=== PATIENT | female | born 1935 | race Caucasian/White ===

== ENCOUNTER 2019-04-13 12:24 | Inpatient (IN) | payer MEDICARE, SELFPAY ==
[2019-04-13] VITALS (9 sets, daily range): BP systolic 106–149; BP diastolic 59–69; PULSE 65–74; RESP 15–22; TEMP 36.6–37.9; O2SAT 90–98; BMI 20.2
--- NOTE | ~2019-04-13 | MR_ITS ---
EXAMINATION: MR brain/brain stem wo/w con DATE: 04/14/2019 10:37 INDICATION: Weakness TECHNIQUE: Magnetic resonance imaging (MRI) of the brain and brainstem was performed without and with 10 mL Multihance intravenous contrast. Sequences included sagittal and axial T1-weighted SE, axial d iffusion-weighted FS SE, axial T2*-weighted GRE, axial T2-weighted FLAIR, and axial T2-weighted FSE. Postcontrast axial, sagittal and coronal T1-weighted SE was obtained. Apparent diffusion coefficient (ADC) maps were created. COMPARISON: Head CT dated 04/13/2019 and brain MR dated 04/27/2015 FINDINGS: There are no areas of restricted diffusion to suggest acute infarction. No intracranial hemorrhage or abnormal intracranial mass lesion. No significant interval change in a small amount of scattered are as of nonspecific increased T2-weighted signal intensity in the cerebral white matter, predominantly involving the deep and periventricular white matter which is within normal limits for age. There are no intraparenchymal signal abnormalities seen on the other pulse sequences. The ventricles are symmet des and normal in size. There are no abnormal extra-axial fluid collections. Flow voids are seen in t he cerebral arteries on the T2-weighted sequences consistent with their expected patency. Mild mucosa l thickening the bilateral ethmoid and maxillary sinuses. Visualized orbits and soft tissues are unre markable. There are no areas of abnormal enhancement on the post contrast images. IMPRESSION: 1. Normal aging brain. No acute intracranial process. Reviewed, dictated and finalized at location A. RT SALES ASSISTANT
--- NOTE | ~2019-04-13 | XR_ITS ---
EXAMINATION: XR chest 2V EXAM DATE: 04/15/2019 12:17 INDICATION: Wheezing. TECHNIQUE: Frontal and lateral projections of the chest obtained and reviewed. Comparison is made to prior examination from 10/09/2018. FINDINGS: The there is moderate-sized right-sided pleural effusion with adjacent multisegmental righ t basilar atelectasis. Superimposed pneumonia or cancer not excludable. Left lung is clear. There is severe thoracolumbar scoliosis. No pneumothorax. The cardiac silhouette is enlarged. The bones are os teopenic. There are bony degenerative changes. IMPRESSION: 1. Moderate right pleural effusion, adjacent lobar atelectasis. 2. Underlying pneumonia or cancer not excludable. Reviewed, dictated and finalized at location A. ER/WAITRESS DINING CAR
--- NOTE | ~2019-04-13 | CT_ITS ---
EXAMINATION: CT brain wo con DATE: 04/13/2019 13:34 INDICATION: Fall with altered mental status. TECHNIQUE: Computed tomography (CT) of the head was performed without intravenous contrast. Sagittal and coronal reconstructions were performed. The mA was adjusted according to patient size. Iterative reconstruction technique was employed. The dose-length product was 605.33 mGy-cm. COMPARISON: head CT dated 08/23/2004 and brain MR dated 04/27/2015 FINDINGS: No fracture. No acute intracranial hemorrhage, acute infarction or abnormal extra axial fluid collect ion. There is mild scattered white matter hypoattenuation consistent with chronic small vessel ischem ic disease. Mild increased prominence of the subarachnoid spaces overlying the convexities consistent with mild age-appropriate diffuse volume loss. Ventricles are normal and symmetric. No mass/mass eff ect. Intracranial calcified cerebral atherosclerosis is noted. The orbits, paranasal sinuses and mast oid air cells are normal. IMPRESSION: 1. Normal aging brain. No fracture or acute intracranial process Reviewed, dictated and finalized at location A. H MACHINE OPERATOR
--- NOTE | ~2019-04-13 | US_ITS ---
EXAMINATION: US carotid duplex BI DATE: 04/14/2019 11:19 INDICATION: Weakness. Carotid atherosclerosis and stenosis. TECHNIQUE: Grayscale, color Doppler, and pulsed Doppler images of the cervical carotid arteries were obtained. The degree of vessel stenosis is placed in one of the following categories: normal, <50%, 5 0-69%, >=70% but less than near-occlusion, near-occlusion, or total occlusion. Note that percent sten osis relative to normal distal artery lumen diameter is indirectly measured from velocity measurement s as described by Hood, et al. Radiology 2003; 229:340-346. COMPARISON: 05/02/2015 FINDINGS: Intermittent cardiac arrhythmia is present which occurs medially following imaging of the carotid bul bs on both the left and right. RIGHT: The right common carotid artery (CCA) peak systolic velocity (PSV) is 52 cm/s. The right internal car otid artery (ICA) PSV is 110 cm/s. The right ICA end-diastolic velocity (EDV) is 31 cm/s. The right I CA/CCA PSV ratio is 2.1. Grayscale and color Doppler images yield an estimate of <50% diameter reduct ion from plaque in the ICA. The external carotid artery (ECA) PSV is 120 cm/s. There is antegrade andressa w in the right vertebral artery. LEFT: The left CCA PSV is 87 cm/s. The left ICA PSV is 154 cm/s. The left ICA EDV is 31 cm/s. The left ICA/ CCA PSV ratio is 1.8. Grayscale and color Doppler images yield an estimate of 50-69% diameter reducti on from plaque in the ICA. The ECA PSV is 189 cm/s. There is antegrade flow in the left vertebral art romeo. IMPRESSION: 1. <50% stenosis in the right internal carotid artery. 2. 50-69% stenosis in the left internal carotid artery. 2. Transient likely vasovagal-induced cardiac arrhythmia. Correlate with EKG. Reviewed, dictated and finalized at location A. ROOFING INSTALLER
--- NOTE | ~2019-04-13 | XR_ITS ---
XR chest 2V 04/18/2019 16:50 Indication: Right pleural effusion. Procedure: 2 view chest Comparison: Comparison to multiple prior studies sequentially, with oldest reviewed study dated 10/09. Findings: Moderate right pleural effusion. Cardiomegaly. There is superimposed airspace disease in th e right lung and left lung base. No pneumothorax. Generalized osteopenia. Scoliosis. Advanced degener ative changes of the shoulders, left greater than right. Impression: 1: Bilateral airspace disease may represent atelectasis and/or pneumonia. 2: Moderate right pleural effusion. 3: Cardiomegaly. Reviewed, dictated and finalized at location A. LESOFT DEVELOPER Impression: 1: Bilateral airspace disease may represent atelectasis and/or pneumonia. 2: Moderate right pleural effusion. 3: Cardiomegaly.
--- NOTE | 2019-04-13 12:49 | ED.WEAKNESS ---
HPI - Weakness General Chief complaint: Weakness Stated complaint: weakness Time Seen by Provider: 04/13/19 12:45 Source: patient and RN notes reviewed Mode of arrival: EMS Limitations: no limitations History of Present Illness HPI Narrative: The pt is an 83 y/o female who presents to the ED, via EMS, with c/o generalized weakness since this morning. The pt states that she was using her walker to get into the shower this morning when her legs gave out. She also notes that she was getting ready to lay down last night and fell backwards. She states that she does not feel sick and does not have pain. Per nurse's note, staff at [facility] found her slumped over to the lt this morning, unable to stand up when asked. Her last known normal was at 21:30 last night. The pt denies poor appetite, nausea, or vomiting. Also per nurse's note, the pt has a PMHx of a TIA 3 years ago. Complaint: generalized weakness Onset (ago): hour(s) (this morning) Location: generalized Associated symptoms: denies other symptoms Related Data Home Medications Medication Instructions Recorded Confirmed amlodipine 10 mg PO HS 04/13/19 04/13/19 aspirin 81 mg PO DAILY 04/13/19 04/13/19 calcium polycarbophil [FiberCon] 625 mg PO BID 04/13/19 04/13/19 cyanocobalamin (vitamin B-12) 1,000 mcg PO DAILY 04/13/19 04/13/19 [Vitamin B-12] lorazepam 0.5 mg PO HS 04/13/19 04/13/19 [id number] carb-vit K 1 tablet PO DAILY 04/13/19 04/13/19 [One-A-Day Womens Formula] sertraline 100 mg PO BID 04/13/19 04/13/19 tramadol 50 mg PO BID 04/13/19 04/13/19 Allergies Allergy/AdvReac Type Severity Reaction Status Date / Time Penicillins Allergy Unknown Verified 08/03/10 09:33 Review of Systems Constitutional: Constitutional: Denies poor appetite and Reports weakness (generalized) Gastrointestinal: Gastrointestinal: Denies nausea and Denies vomiting PMFSH Past Medical History Medical History (Updated 04/13/19 @ 19:26 by Hood Samano MD) Anxiety Arthritis Back pain Bakers cyst Colon polyps CVA (cerebral vascular accident) Depression Dysphagia Fractures ankle, foot Hemorrhoids internal History of rectal polyps Hypercalcemia Hypertension Kidney tumor rt Leukemia Melena Osteoporosis Ovarian cancer rt Ovarian cyst Peripheral neuropathy Sleep apnea TIA (transient ischemic attack) Surgical History Surgical History (Updated 04/13/19 @ 13:42 by Tiffanie Enriquez) H/O arthroscopic knee surgery lt H/O local excision of skin lesion lt hand H/O oophorectomy bilateral History of nephrectomy rt History of total bilateral knee replacement (TKR) Hx of colonoscopy Social History Social History Years smoked: 60 Smoking status: Former smoker Tobacco type: cigarettes Second hand tobacco smoke exposure: No Smoking end date: 09/26/18 Alcohol intake: never Substance use: never Gender identity (if verbalized by the patient): Female Spiritual care concerns: No Agree to blood products: Yes Exam Const: General: no acute distress Other: frail, elderly HENMT: Mouth: Yes lip normal and Yes dry mucous membranes Eyes: Conjunctivae: conjunctivae normal Pupils: Equal, round and reactive pupils present Resp: Effort & Inspection: normal respiratory effort Auscultation: clear to auscultation bilaterally Cardio: Rhythm: regular rhythm Other: irregular rate, 3 point ectopy GI: GI Palp: Yes Soft to palpation and No Tenderness to palpation present (GI) Auscultation: normal bowel sounds Back/Spine/Pelvis: Back: other (full ROM) Skin: General skin exam: normal color, dry skin and other (warm) Other: healing bruise to rt upper back Neuro: General: patient oriented x3 Speech: normal speech Other: strength grossly nml, mild lt side neglect Extrem: General: full ROM Psych: Mental Status: mental status grossly normal Affect: normal affect Course Consult
--- NOTE | 2019-04-13 12:52 | ECG_ITS ---
Measurements Intervals [place] Rate: 63 P: 140 MN: 140 QRS: -11 QRSD: 96 T: 60 QT: 345 QTc: 355 Interpretive Statements SINUS RHYTHM ATRIAL PREMATURE COMPLEX LEFT VENTRICULAR HYPERTROPHY AND ST-T CHANGE BORDERLINE T WAVE ABNORMALITY- ANT/INF LEADS BORDERLINE ECG Electronically Signed On 04-13-2019 13:57:15 VALVE FITTER by Ricardo Childers D.O.
[2019-04-13 13:37] LABS: Alanine Aminotransferase 19 U/L (4-35); Albumin Level 3.8 g/dL (3.5-5.1); Alkaline Phosphatase 75 U/L (38-126); Aspartate Amino Transferase 27 U/L (14-36); Bilirubin,Total 0.5 mg/dL (0.2-1.3); Blood Urea Nitrogen 35 mg/dL (7-17); Calcium 10.2 mg/dL (8.4-10.2); Carbon Dioxide 28 mmol/L (22-30); Chloride 97 mmol/L (98-107); Estimated CRCL calculation 40 ml/min; Estimated Glomerular Filt Rate > 60; Glucose 116 mg/dL (65-105); Potassium 3.2 mmol/L (3.4-5.0); Sodium 137 mmol/L (137-145)
[2019-04-13] MEDS: SODIUM CHLORIDE 0.9% IV 500 ML 999 ML IV CONT (13:40)
[2019-04-13 14:27] LABS: Add Urine Microscopic? NO; Appearance Urine Clear (Clear); Bilirubin Urine Negative (Negative); Blood Urine Negative (Negative); Color Urine Yellow (Yellow); Glucose Urine UA Negative (Negative); Ketones Urine Negative (Negative); Leukocyte Esterase Ur Negative LEU/UL (Negative); Nitrate Urine Negative (Negative); Protein Urine Negative (Negative); Specific Grav Ur 1.023 (1.001-1.035); Urobilinogen Urine Negative mg/dL (<2.0)
--- NOTE | 2019-04-13 14:44 | PC.NURSE ---
Pt CBC drawn twice by motor racer Jl and motor racer Fredy, unreceived both times. Phlebotomy called but nobody answered. SIMONA Barnard and Mil Rivera RN, notified.
[2019-04-13 15:05] LABS: Basophils Percent Auto 0.1 % (0.2-1.2); Hematocrit 24.4 % (37.0-47.0); Hemoglobin 8.1 g/dL (12.0-15.0); Immature Granulocyte Absolute 0.04 K/mm3 (0.00-0.031); Immature Granulocyte Percent A 0.5 % (0-0.5); Lymphocytes Absolute Auto 0.75 K/mm3 (0.9-3.2); Lymphocytes Percent Auto 10.1 % (18.3-44.2); Mean Corpuscular HGB Conc 33.2 g/dl (32-36); Mean Corpuscular Hemoglobin 28.6 pg (26-34); Mean Corpuscular Volume 86.2 fl (80-100); Monocytes Absolute Auto 0.3 K/mm3 (0.1-0.6); Monocytes Percent Auto 3.9 % (2.6-8.5); Neutrophils Absolute Auto 6.3 K/mm3 (1.3-6.7); Neutrophils Percent Auto 85.4 % (45.5-73.1); Platelet Count Result 149 k/mm3 (150-375); Red Blood Count 2.83 M/mm3 (4.2-5.4); Red Cell Distribution Width 15.1 % (11.5-14.5); White Blood Count 7.4 K/mm3 (4.5-10.0)
--- NOTE | 2019-04-13 16:08 | PC.NURSE ---
Walked pt about 10 Ft. Pt was not very steady; about every 4-6 steps Pt became weak and would become unsteady. Notified RN of how Pt walked.
--- NOTE | 2019-04-13 16:53 | PC.NURSE ---
Advised EDP of SpO2 88-90%. No new orders at this time.
--- NOTE | 2019-04-13 17:14 | PC.NURSE ---
Patient placed on O2 2L NC for SpO2 of 88%. Sp02 increased to 96%.
[2019-04-13] MEDS: LACTATED RINGERS 1,000 ML 100 ML IV CONT (18:35)
--- NOTE | 2019-04-13 18:57 | ADMGEN ---
This patient, Shonda Wiggins, was admitted to Medical Room 248-01. Patient/family oriented to hospital policies and general routines including ID bracelet, bed and alarms, visiting hours, pain management, procedures, bathroom and other care routines, personal items, smoking policy, room service/diet, and visiting hours. Valuables list has been completed. Information on how to activate the Rapid Response Team has been discussed. Patient/Family are encouraged to report perceived risks to care and to ask questions if they do not understand what they are told or what they should do.
[2019-04-13] MEDS: AMLODIPINE BESYLATE 5 MG TABLET 10 MG PO (23:56)
[2019-04-13] MEDS: lisinopriL 20 MG TABLET PO (23:57)
[2019-04-13] MEDS: TRAMADOL HCL 50 MG TABLET PO (23:58)
[2019-04-13] MEDS: SERTRALINE HCL 50 MG TABLET 100 MG PO (23:59)
[2019-04-14] VITALS (10 sets, daily range): BP systolic 140–160; BP diastolic 60–86; PULSE 66–92; RESP 16–18; TEMP 36.1–36.9; O2SAT 93–96
--- NOTE | 2019-04-14 | ECHO_ITS ---
Patient Info Name: Shonda Wiggins Age: 83 years : 1935 Gender: Female Ht: 63 in Wt: 118 lbs BSA: 1.54 m2 HR: 75 bpm BP: 140 / 60 mmHg Heart Rhythm: Sinus Rhythm Technical Quality: Good Exam Date: 04/14/2019 11:27 AM Exam Location: [facility] Patient Status: Inpatient Admit Date: 04/13/2019 Staff Ordering Physician: Mindy Serra NP Time Motion Analyst: Xavier Gallegos RDCS Attending Provider: Slim Alonso MD Referring Physician: Ponce HOLLEY; Exam Type: CA echo doppler w bubble study Study Info Indications 435.9 - TIA Complete two-dimensional, color flow and Doppler transthoracic echocardiogram is performed with agitated saline. Contrast/Agitated Saline Contrast/Ag. Saline: Agitated Saline Amount: 18.00 ml Administered By: Beatriz Burciaga RN History/Risk Factors TIA and Hypertension. Summary 1. Left ventricular chamber dimension is mildly enlarged. 2. Left ventricular systolic function is normal, estimated at 55-60%. 3. There is mildly increased left ventricular wall thickness. 4. The left ventricular diastolic function is grade I diastolic dysfunction. 5. E/e' 10 is mildly elevated. 6. Global longitudinal strain is abnormal at -15.0%. 7. Left atrial chamber dimension is severely enlarged. 8. Right atrial chamber dimension is mildly enlarged. 9. There is mild aortic valve sclerosis. 10. There is moderate aortic valve regurgitation. 11. The mitral valve has mild calcified annulus. 12. There is mild mitral valve regurgitation. 13. There is trace tricuspid valve regurgitation. 14. Mild pulmonary hypertension, estimated pulmonary arterial systolic pressure is 47 mmHg. 15. There is mild pulmonic regurgitation. 16. There is trivial pericardial effusion. Left Ventricle E/e' 10 is mildly elevated. Global longitudinal strain is abnormal at -15.0%. Left ventricular chamber dimension is mildly enlarged. Left ventricular systolic function is normal, estimated at 55-60%. There is mildly increased left ventricular wall thickness. The left ventricular diastolic function is grade I diastolic dysfunction. Right Ventricle Right ventricular chamber dimension is normal. Right ventricular systolic function is normal. Left Atria Left atrial chamber dimension is severely enlarged. Right Atria Right atrial chamber dimension is mildly enlarged. Atrial Septum Agitated saline administered with and without valsalva maneuver opacified the right sided chambers without shunt noted. Intact interatrial septum visualized by color flow and agitated saline imaging. Aortic Valve The aortic valve is trileaflet. There is mild aortic valve sclerosis. There is no aortic valve stenosis. There is moderate aortic valve regurgitation. Pulmonic Valve There is mild pulmonic regurgitation. Mitral Valve The mitral valve has mild calcified annulus. There is no mitral valve stenosis. There is mild mitral valve regurgitation. Tricuspid Valve There is trace tricuspid valve regurgitation. Mild pulmonary hypertension, estimated pulmonary arterial systolic pressure is 47 mmHg. Pericardium/Pleural There is trivial pericardial effusion. Inferior Vena Cava Normal inferior vena cava with >50% collapse upon inspiration consistent with normal right atrial pressure, 5 mmHg. Aorta The aortic root size at the sinus of Valsalva is normal. Left Ventricular Outflow Tract
--- NOTE | 2019-04-14 00:16 | PM.IMHP ---
H&P: HPI History of Present Illness Chief complaint: generalized weakness and ambulatory dysfunction Narrative: Shonda Wiggins is a 83 year old female who resides at [facility] reading assistant living with her . The patient does have a motorized scooter but has been using her walker. The patient states that she typically uses a walker when she goes to the cafeteria. The patient complained of some generalized weakness this morning. She stated that she was using her walker to get in the shower this morning when her legs gave out. She also notes that she was getting ready to lay down last night she fell backwards. The patient was here October 10, 2018 with a right femur fracture without any surgical intervention just nonweightbearing. Patient was having falls pack been. She has a history of having TIAs. The patient tells me that she was not feeling sick today to was not having any pain. The patient was found slumped over this morning and was unable to stand up when asked. She was normal last night around 9:30 p.m.. She has had no fever no chills. No nausea no vomiting no diarrhea. On the monitor she was showing frequent PACs and multifocal PVCs. Was found to be 3.2 and her magnesium had not been checked. Was read as normal aging brain no fracture acute intracranial process. Patient is already on aspirin and Plavix for frequent TIAs. She is somewhat forgetful but does not have any focal weakness. Hemoglobin was down to 8.1 today and she is typically around 9 or 10. She denies any dark stools no hematemesis no hematochezia. Date of service 04/13/2019 Review of Systems Review of Systems: Narrative: Patient is quite forgetful at times. She did not remember falling and breaking her hip last September. Most of the information was obtained from records and the patient does not remember some of it. She denies feeling ill. She feels tired she is currently on oxygen but states she is not on oxygen where she lives but has been short of breath with exertion. It All systems reviewed & are unremarkable except as noted in HPI and below Constitutional: Constitutional: Reports as per HPI and Reports no additional constitutional complaints Eyes: Eyes: Reports as per HPI and Reports no additional eye complaints ENT: Reports system reviewed and no additional complaints, except as documented and Reports Normal hearing present Cardiovascular: Cardiovascular: Reports no additional cardiovascular complaints Respiratory: Respiratory: Reports no additional respiratory complaints and Reports no additional respiratory complaints Gastrointestinal: Gastrointestinal: Reports as per HPI and Reports no additional gastrointestinal complaints Musculoskeletal: Musculoskeletal: Reports no additional musculoskeletal complaints Integumentary/Breasts: Skin/Breast: Reports system reviewed and no additional complaints, except as docu and Reports as per HPI Neurologic: Reports system reviewed and no additional complaints, except as documented, Reports as per HPI and Reports Normal hearing present Psychiatric: Psychiatric: Reports no additional psychiatric complaints and Reports as per HPI Endocrine: Endocrine: Reports no additional endocrine complaints Hematologic/Lymphatic: Hematologic/Lymphatic: Reports no additional hematologic/lymphatic complaints Allergic/Immunologic: Allergic/Immunologic: Reports no additional allergic/immunologic complaints [facility] Past Medical History Medical History (Updated 04/14/19 @ 00:36 by Mindy Serra NP) Anxiety Arthritis Back pain Bakers cyst Colon polyps CVA (cerebral vascular accident) Depression Dysphagia Femur fracture, right Non operative Fractures ankle, foot Hemorrhoids internal History of rectal polyps Hypercalcemia Hypertension Kidney tumor rt partial nephrectomy Leukemia Patient denies Melena Neuropathy Osteoporosis Ovarian cancer rt Ovarian cyst Parathyroid tumor Partial parathyroidectomy
[2019-04-14] MEDS: POTASSIUM CHLORIDE 20 MEQ PACKET (FOR LIQUID) PO (02:02)
[2019-04-14 05:22] LABS: Immature Reticulocyte Fraction 8.1 % (3.0-15.9); Reticulocyte Hemoglobin Conten 33.2 pg (28.2-35.7); Reticulocyte Percent 2.48 % (0.7-4.3); Reticulocytes Absolute 0.06 B/L (32.2-175.7)
[2019-04-14 05:28] LABS: Bilirubin,Total 0.3 mg/dL (0.2-1.3)
[2019-04-14 05:35] LABS: Transferrin 176 mg/dL (206-381)
[2019-04-14 05:59] LABS: Iron 30 ug/dL (37-170)
[2019-04-14 06:09] LABS: Percent Iron Saturation 12 % (20-50)
[2019-04-14 06:37] LABS: Folic Acid > 20.0 ng/mL (2.76->20); Vitamin B12 > 1000.0 pg/mL (239-931)
[2019-04-14] MEDS: THERAPEUTIC MULTIVITAMINS/MINERALS TAB (*BKC) 1 TABLET PO (09:43)
[2019-04-14] MEDS: TRAMADOL HCL 50 MG TABLET PO ×2 (09:43→17:22)
[2019-04-14] MEDS: lisinopriL 20 MG TABLET PO ×2 (09:43→17:22)
[2019-04-14] MEDS: CYANOCOBALAMIN 1,000 MCG TABLET 1000 MCG PO (09:43)
[2019-04-14] MEDS: hydroCHLOROthiazide 25 MG TABLET PO (09:43)
[2019-04-14] MEDS: SERTRALINE HCL 50 MG TABLET 100 MG PO ×2 (09:43→17:22)
[2019-04-14] MEDS: CLOPIDOGREL BISULFATE 75 MG TABLET PO (09:43)
[2019-04-14] MEDS: ASPIRIN 81 MG CHEWABLE TABLET PO (09:43)
[2019-04-14] MEDS: calcium polycarbophiL 625 MG TABLET PO ×2 (09:43→17:22)
[2019-04-14] MEDS: LACTATED RINGERS 1,000 ML 100 ML IV CONT (09:45)
--- NOTE | 2019-04-14 10:49 | PCOTNOTE ---
OT evaluation attempted this AM. Pt down for MRI. Will attempt OT evaluation at later time.
--- NOTE | 2019-04-14 11:20 | PCPTNOTE ---
Attempted PT eval. Pt having Echo done. Will try again at later time.
[2019-04-14 13:56] LABS: Hematocrit 21.3 % (37.0-47.0); Mean Corpuscular HGB Conc 32.9 g/dl (32-36); Mean Corpuscular Hemoglobin 28.8 pg (26-34); Mean Corpuscular Volume 87.7 fl (80-100); Mean Platelet Volume 12.3 fl (7.4-10.4); Platelet Count Result 119 k/mm3 (150-375); Red Blood Count 2.43 M/mm3 (4.2-5.4); Red Cell Distribution Width 15.4 % (11.5-14.5); White Blood Count 5.6 K/mm3 (4.5-10.0)
[2019-04-14 14:09] LABS: Blood Urea Nitrogen 20 mg/dL (7-17); Calcium 9.3 mg/dL (8.4-10.2); Carbon Dioxide 33 mmol/L (22-30); Chloride 100 mmol/L (98-107); Estimated CRCL calculation 44 ml/min; Estimated Glomerular Filt Rate > 60; Glucose 96 mg/dL (65-105); Magnesium 1.9 mg/dL (1.6-2.3); Potassium 3.1 mmol/L (3.4-5.0); Sodium 138 mmol/L (137-145)
--- NOTE | 2019-04-14 14:53 | PM.IMPN ---
Progress Note: A&P Assessment and Plan (1) Generalized weakness: Code(s): R53.1 - Weakness Status: Acute Assessment and Plan: Patient 83-year-old female a [facility] with history of neuropathy in lower extremity as well as history of several TIA patient normally uses a walker to get around the half-way, while at the dining table patient was found slumped over and was brought to the emergency department for further evaluation, and time patient denies any chest pain shortness of breath palpitation fever or chills, to further evaluate patient had a CT scan of the head and MRI of the brain which are essentially normal without any acute injury, also had carotid ultrasound did not show any significant stenosis and cardiac echo is pending, will have a PT OT evaluate the patient patient may benefit from going to acute rehab to to strengthen and prevent the falls (2) Anemia: Code(s): D64.9 - Anemia, unspecified Status: Acute Assessment and Plan: Patient has anemia has worsened it is typically around 10 with her hemoglobin but is down to 7 today. Will check and I fob in due to anemia profile. There is no obvious source of bleeding possibly hemodilution will continue to monitor (3) Neuropathy: Code(s): G62.9 - Polyneuropathy, unspecified Status: Chronic Assessment and Plan: Patient stated that she needs her repaired overall to sleep. (4) Multifocal PVCs: Code(s): I49.3 - Ventricular premature depolarization Status: Acute Assessment and Plan: Patient potassium is low, magnesium is normal, will supplement potassium and monitor (5) PAC (premature atrial contraction): Code(s): I49.1 - Atrial premature depolarization Status: Acute Assessment and Plan: Recheck electrolytes in the morning. (6) Hypokalemia: Code(s): E87.6 - Hypokalemia Status: Acute Assessment and Plan: I did give her supplemental today. Could be related to her hydrochlorothiazide. She takes a multivitamin but may need to be a potassium daily. (7) Anxiety: Code(s): F41.9 - Anxiety disorder, unspecified Status: Chronic Assessment and Plan: Continue with her Ativan (8) Depression: Code(s): F32.9 - Major depressive disorder, single episode, unspecified Status: Chronic Assessment and Plan: Continue with Zoloft. (9) Hypertension: Code(s): I10 - Essential (primary) hypertension Status: Chronic Assessment and Plan: Continue with lisinopril but may possibly need to hold her hydrochlorothiazide. I did give her potassium supplement. Continue with Norvasc. (10) TIA (transient ischemic attack): Code(s): G45.9 - Transient cerebral ischemic attack, unspecified Status: Chronic Assessment and Plan: Patient is on aspirin and Plavix. Will do a full stroke workup on the patient with carotids and an echo an MRI of the brain. Subjective Date/time seen: 04/14/19 14:53 Patient 83-year-old female a resident [facility] with history of neuropathy in lower extremity as well as history of several TIA patient normally uses a walker to get around the half-way, while at the dining table patient was found slumped over and was brought to the emergency department for further evaluation, and time patient denies any chest pain shortness of breath palpitation fever or chills, to further evaluate patient had a CT scan of the head and MRI of the brain which are essentially normal without any acute injury, also had carotid ultrasound did not show any significant stenosis and cardiac echo is pending, will have a PT OT evaluate the patient patient may benefit from going to acute rehab to to strengthen and prevent the falls Review of Systems Review of Systems: All systems reviewed & are unremarkable except as noted in HPI and below Exam Narrative: Exam Narrative: Elderly frail Const: General:
[2019-04-14] MEDS: POTASSIUM CHLORIDE 20 MEQ PACKET (FOR LIQUID) 40 MEQ PO (17:22)
[2019-04-14] MEDS: AMLODIPINE BESYLATE 5 MG TABLET 10 MG PO (20:02)
[2019-04-14] MEDS: LORAZEPAM 0.5 MG TABLET PO ×2 (20:03)
[2019-04-15] VITALS (22 sets, daily range): BP systolic 110–164; BP diastolic 65–85; PULSE 66–154; RESP 16–24; TEMP 36.6–37.1; O2SAT 83–99
[2019-04-15 05:52] LABS: Alanine Aminotransferase 16 U/L (4-35); Albumin Level 3.4 g/dL (3.5-5.1); Alkaline Phosphatase 65 U/L (38-126); Aspartate Amino Transferase 24 U/L (14-36); Basophils Percent Auto 0.2 % (0.2-1.2); Bilirubin,Total 0.4 mg/dL (0.2-1.3); Blood Urea Nitrogen 13 mg/dL (7-17); Calcium 9.4 mg/dL (8.4-10.2); Carbon Dioxide 31 mmol/L (22-30); Chloride 98 mmol/L (98-107); Eosinophils Absolute Auto 0.2 K/mm3 (0-0.3); Eosinophils Percent Auto 2.7 % (0-4.4); Estimated CRCL calculation 51 ml/min; Estimated Glomerular Filt Rate > 60; Glucose 104 mg/dL (65-105); Hematocrit 22.2 % (37.0-47.0); Hemoglobin 7.3 g/dL (12.0-15.0); Immature Granulocyte Absolute 0.03 K/mm3 (0.00-0.031); Immature Granulocyte Percent A 0.5 % (0-0.5); Lymphocytes Absolute Auto 0.88 K/mm3 (0.9-3.2); Lymphocytes Percent Auto 13.7 % (18.3-44.2); Magnesium 1.8 mg/dL (1.6-2.3); Mean Corpuscular HGB Conc 32.9 g/dl (32-36); Mean Corpuscular Volume 88.1 fl (80-100); Mean Platelet Volume 12.4 fl (7.4-10.4); Monocytes Absolute Auto 0.4 K/mm3 (0.1-0.6); Monocytes Percent Auto 6.1 % (2.6-8.5); Neutrophils Absolute Auto 4.9 K/mm3 (1.3-6.7); Neutrophils Percent Auto 76.8 % (45.5-73.1); Platelet Count Result 125 k/mm3 (150-375); Potassium 3.3 mmol/L (3.4-5.0); Red Blood Count 2.52 M/mm3 (4.2-5.4); Red Cell Distribution Width 15.2 % (11.5-14.5); Sodium 137 mmol/L (137-145); White Blood Count 6.4 K/mm3 (4.5-10.0)
[2019-04-15] MEDS: SERTRALINE HCL 50 MG TABLET 100 MG PO ×2 (08:20→17:56)
[2019-04-15] MEDS: ASPIRIN 81 MG CHEWABLE TABLET PO (08:21)
[2019-04-15] MEDS: CYANOCOBALAMIN 1,000 MCG TABLET 1000 MCG PO (08:22)
[2019-04-15] MEDS: lisinopriL 20 MG TABLET PO ×2 (08:22→17:56)
[2019-04-15] MEDS: hydroCHLOROthiazide 25 MG TABLET PO (08:22)
[2019-04-15] MEDS: TRAMADOL HCL 50 MG TABLET PO ×2 (08:22→17:56)
[2019-04-15] MEDS: THERAPEUTIC MULTIVITAMINS/MINERALS TAB (*BKC) 1 TABLET PO (08:22)
[2019-04-15] MEDS: CLOPIDOGREL BISULFATE 75 MG TABLET PO (08:22)
[2019-04-15] MEDS: calcium polycarbophiL 625 MG TABLET PO ×2 (08:22→17:56)
--- NOTE | 2019-04-15 12:37 | ECG_ITS ---
Measurements Intervals [place] Rate: 140 P: CO: 0 QRS: 14 QRSD: 83 T: 120 QT: 226 QTc: 345 Interpretive Statements ATRIAL FIBRILLATION WITH RAPID VENTRICULAR RESPONSE VENTRICULAR PREMATURE COMPLEX DELAYED PRECORDIAL R/S TRANSITION NONSPECIFIC ST & T-WAVE ABNORMALITY- DIFFUSE LEADS ABNORMAL ECG Electronically Signed On 04-15-2019 12:54:09 LINUX [employer] ADMINISTRATOR by Ricardo Childers D.O.
--- NOTE | 2019-04-15 12:47 | PC.NURSE ---
KATI CALLLED TO DR COTE
--- NOTE | 2019-04-15 13:20 | PC.NURSE ---
This patient, Shonda Wiggins, was transferred to IMU [id number] on 04/15/19 at 1320. Personal belongings sent with patient. Belongings list checked and signed with receiving unit. Report given to Laya JARVIS. Appropriate documentation sent with patient.
--- NOTE | 2019-04-15 13:21 | PCOTNOTE ---
Attempted to see patient this pm. Patient was in bed upon entry and nurse reported that the patient's heart rate was uncontrollable and recommended no OT therapy at this time.
[2019-04-15 14:10] LABS: Troponin I 0.116 ng/mL (0.000-0.034)
--- NOTE | 2019-04-15 16:23 | PCRCNOTE ---
Window of time for administration has passed. See next scheduled administration.
[2019-04-15 17:15] LABS: Troponin I 0.153 ng/mL (0.000-0.034)
--- NOTE | 2019-04-15 17:23 | WPDCN ---
Assessment and Plan Assessment and plan (1) Atrial fibrillation, new onset: Code(s): I48.91 - Unspecified atrial fibrillation Status: Acute Assessment and Plan: Patient has AFib new onset with RVR but fortunately converted to sinus rhythm was Cardizem. She was asymptomatic during this episode so it is unclear AF that accounts for her slumping over this morning. Will change amlodipine to metoprolol to help prevent recurrence and control heart rate, and discontinue IV Cardizem. Patient's CHADS2 Vasc score is 7, corresponding to about a 10% risk per year of cardioembolic events. However, with her frequent falls and severe anemia I think, at this time, it is unwise to start anticoagulation. Of note however, it is not known that aspirin plus Plavix is any safer than anticoagulation. We can re-evaluate if the anemia stabilizes and if her falls are reduced. (2) Generalized weakness: Code(s): R53.1 - Weakness Status: Acute Assessment and Plan: Unclear etiology the patient appears to be frail. Perhaps some of that may be from AFib RVR? (3) Anemia: Code(s): D64.9 - Anemia, unspecified Status: Acute Assessment and Plan: Chronic anemia, worsened recently FOB pending (4) TIA (transient ischemic attack): Code(s): G45.9 - Transient cerebral ischemic attack, unspecified Status: Chronic Assessment and Plan: (5) Pleural effusion, right: Code(s): J90 - Pleural effusion, not elsewhere classified Status: Acute Assessment and Plan: Right pleural effusion noted, unclear if this is diastolic CHF (does not otherwise appear volume overloaded) or related to other causes such as pneumonia or malignancy. Check BNP, try some diuretic and see if it resolves. Lasix 20 mg IVP BID. Cont to follow K+ w/ daily BMP. (6) Elevated troponin: Code(s): R79.89 - Other specified abnormal findings of blood chemistry Status: Acute Assessment and Plan: Non-specific. No ACS. HPI Data of Consult Date/Time: 04/15/19 17:23 Requesting Physician: Slim Alonso MD Primary Care Provider: Sammy Silva MD Consult Narrative Narrative: Date of service: 04/15/2019 Shonda Wiggins is a 83 year old female whom we were asked to see at the request of nurse-practitioner Mindy Serra and Dr. Alonso for my advice and opinion regarding her new paroxysmal atrial fibrillation in consultation. Mrs. Wiggins was admitted yesterday from [facility]. She was complaining of generalize weakness in the morning. Apparently her legs gave out and the night prior she fell backwards. She was found slumped over in her wheelchair and unable to stand so sent to the emergency room. Workup was fairly unremarkable, though a potassium was 3.2. She is chronically anemic but worse than usual. This afternoon she went into AFib RVR which is a new problem for her, and converted back to sinus rhythm on Cardizem 5 milligrams/hour. She did not feel anything unusual at the time. The patient denies any history of heart disease heart attacks or heart failure. She has a history of hypertension, frailty, peripheral neuropathy and frequent falls. She had a femur fracture in September 2018. She has history of TIAs and takes aspirin and Plavix. She has some dementia and memory loss. Patient is a poor historian and much of the history was obtained from the chart. Review of Systems Constitutional: Constitutional: Reports fatigue, Reports lethargy and Reports weakness Eyes: Eyes: Denies blurry vision ENT: Denies epistaxis Cardiovascular: Cardiovascular: Denies chest pain, Denies pedal edema,
--- NOTE | 2019-04-15 18:12 | PM.IMPN ---
Progress Note: A&P Assessment and Plan (1) Generalized weakness: Code(s): R53.1 - Weakness Status: Acute Assessment and Plan: 04/15/19 18:12 Patient 83-year-old female a resident of long term with history of neuropathy in lower extremity as well as history of several TIA patient normally uses a walker to get around the long term, while at the dining table patient was found slumped over and was brought to the emergency department for further evaluation, and time patient denies any chest pain shortness of breath palpitation fever or chills, to further evaluate patient had a CT scan of the head and MRI of the brain which are essentially normal without any acute injury, also had carotid ultrasound did not show any significant stenosis and cardiac echo was essentially normal, however today patient developed atrial fibrillation with RVR it was new onset for the patient patient was started on diltiazem drip was transferred to IMU while on the drip patient converted to sinus rhythm patient is seen by regional project manager, stop amlodipine and place the patient on metoprolol prevent recurrent atrial fibrillation, patient has had several falls and is a concern of anemia regional project manager recommending to hold anticoagulation for now the patient does require anticoagulation as her Chadscore is 7, will continue to monitor have PT OT evaluate the patient (2) Anemia: Code(s): D64.9 - Anemia, unspecified Status: Acute Assessment and Plan: Patient has anemia has worsened it is typically around 10 with her hemoglobin but is down to 7 today. Will check and I fob in due to anemia profile. There is no obvious source of bleeding possibly hemodilution will continue to monitor (3) Neuropathy: Code(s): G62.9 - Polyneuropathy, unspecified Status: Chronic Assessment and Plan: Patient stated that she needs her repaired overall to sleep. (4) Multifocal PVCs: Code(s): I49.3 - Ventricular premature depolarization Status: Acute Assessment and Plan: Patient potassium is low, magnesium is normal, will supplement potassium and monitor (5) PAC (premature atrial contraction): Code(s): I49.1 - Atrial premature depolarization Status: Acute Assessment and Plan: Recheck electrolytes in the morning. (6) Hypokalemia: Code(s): E87.6 - Hypokalemia Status: Acute Assessment and Plan: I did give her supplemental today. Could be related to her hydrochlorothiazide. She takes a multivitamin but may need to be a potassium daily. (7) Anxiety: Code(s): F41.9 - Anxiety disorder, unspecified Status: Chronic Assessment and Plan: Continue with her Ativan (8) Depression: Code(s): F32.9 - Major depressive disorder, single episode, unspecified Status: Chronic Assessment and Plan: Continue with Zoloft. (9) Hypertension: Code(s): I10 - Essential (primary) hypertension Status: Chronic Assessment and Plan: Continue with lisinopril but may possibly need to hold her hydrochlorothiazide. I did give her potassium supplement. Continue with Norvasc. (10) TIA (transient ischemic attack): Code(s): G45.9 - Transient cerebral ischemic attack, unspecified Status: Chronic Assessment and Plan: Patient is on aspirin and Plavix. Will do a full stroke workup on the patient with carotids and an echo an MRI of the brain. (11) Atrial fibrillation, new onset: Code(s): I48.91 - Unspecified atrial fibrillation Status: Acute Assessment and Plan: Plan is above Subjective Date/time seen: 04/15/19 18:12 Patient 83-year-old female a resident of long term with history of neuropathy in lower extremity as well as history of several TIA patient normally uses a walker to get around the long term, while at the dining table patient was found slumped over and was brought to the emergency department for further ev
[2019-04-15] MEDS: FUROSEMIDE INJ 40 MG/4 ML VIAL 20 MG IV PUSH (18:48)
[2019-04-15] MEDS: METOPROLOL TARTRATE 25 MG TABLET PO (18:48)
[2019-04-15] MEDS: POTASSIUM CHLORIDE 20 MEQ TABLET.ER PO (18:49)
[2019-04-15 20:05] LABS: Troponin I 0.805 ng/mL (0.000-0.034)
[2019-04-15 20:50] LABS: Free T4 Free Thyroxine Reflex 0.93 ng/dL (0.78-2.19)
[2019-04-15] MEDS: ALBUTEROL SULFATE NEB 2.5 MG/0.5 ML INH INHALATION (21:03)
[2019-04-15] MEDS: BUDESONIDE RESPULE NEB 0.5 MG/2 ML AMP INHALATION (21:03)
[2019-04-15] MEDS: IPRATROPIUM BR 0.02% INH SOLN 0.5 MG/2.5 ML VIAL INHALATION (21:03)
[2019-04-15] MEDS: LORAZEPAM 0.5 MG TABLET PO (22:21)
[2019-04-15 22:25] LABS: Total Triiodothyronine (T3) 0.91 NG/ML (0.97-1.69)
[2019-04-16] VITALS (28 sets, daily range): BP systolic 118–162; BP diastolic 55–79; PULSE 66–87; RESP 16–26; TEMP 35.9–37.3; O2SAT 90–99
[2019-04-16] MEDS: ALBUTEROL SULFATE NEB 2.5 MG/0.5 ML INH INHALATION ×4 (02:28→21:52)
[2019-04-16] MEDS: IPRATROPIUM BR 0.02% INH SOLN 0.5 MG/2.5 ML VIAL INHALATION ×4 (02:28→21:51)
[2019-04-16 03:53] LABS: Haptoglobin 17 mg/dL (43-212)
[2019-04-16 04:51] LABS: Hematocrit 22.2 % (37.0-47.0); Hemoglobin 7.3 g/dL (12.0-15.0); Mean Corpuscular HGB Conc 32.9 g/dl (32-36); Mean Corpuscular Hemoglobin 29.2 pg (26-34); Mean Corpuscular Volume 88.8 fl (80-100); Platelet Count Result 143 k/mm3 (150-375); Red Cell Distribution Width 15.3 % (11.5-14.5); White Blood Count 7.3 K/mm3 (4.5-10.0)
[2019-04-16 05:09] LABS: Blood Urea Nitrogen 14 mg/dL (7-17); Calcium 9.3 mg/dL (8.4-10.2); Carbon Dioxide 32 mmol/L (22-30); Chloride 98 mmol/L (98-107); Estimated CRCL calculation 44 ml/min; Estimated Glomerular Filt Rate > 60; Glucose 108 mg/dL (65-105); Potassium 3.7 mmol/L (3.4-5.0); Sodium 137 mmol/L (137-145)
[2019-04-16 05:37] LABS: NT Pro B Type Natriuretic Pept 3260 PG/ML (5-100)
[2019-04-16] MEDS: lisinopriL 20 MG TABLET PO ×2 (08:28→17:29)
[2019-04-16] MEDS: ASPIRIN 81 MG CHEWABLE TABLET PO (08:28)
[2019-04-16] MEDS: CLOPIDOGREL BISULFATE 75 MG TABLET PO (08:28)
[2019-04-16] MEDS: THERAPEUTIC MULTIVITAMINS/MINERALS TAB (*BKC) 1 TABLET PO (08:28)
[2019-04-16] MEDS: FUROSEMIDE INJ 40 MG/4 ML VIAL 20 MG IV PUSH ×2 (08:29→17:30)
[2019-04-16] MEDS: SERTRALINE HCL 50 MG TABLET 100 MG PO ×2 (08:29→17:30)
[2019-04-16] MEDS: CYANOCOBALAMIN 1,000 MCG TABLET 1000 MCG PO ×2 (08:29→17:30)
[2019-04-16] MEDS: hydroCHLOROthiazide 25 MG TABLET PO (08:30)
[2019-04-16] MEDS: calcium polycarbophiL 625 MG TABLET PO ×2 (08:30→17:31)
[2019-04-16] MEDS: METOPROLOL TARTRATE 25 MG TABLET PO ×2 (08:30→20:49)
[2019-04-16] MEDS: POTASSIUM CHLORIDE 20 MEQ TABLET.ER PO ×2 (08:30→17:31)
[2019-04-16] MEDS: TRAMADOL HCL 50 MG TABLET PO ×2 (08:33→17:29)
[2019-04-16] MEDS: BUDESONIDE RESPULE NEB 0.5 MG/2 ML AMP INHALATION ×2 (09:11→21:52)
--- NOTE | 2019-04-16 12:41 | ECG_ITS ---
Measurements Intervals [place] Rate: 71 P: 15 IL: 136 QRS: 8 QRSD: 98 T: 29 QT: 421 QTc: 460 Interpretive Statements SINUS RHYTHM ATRIAL AND VENTRICULAR PREMATURE COMPLEXES BORDERLINE R WAVE PROGRESSION, ANTERIOR LEADS BORDERLINE ST-T WAVE ABNORMALITY- INF/LAT LEADS BASELINE WANDER- V1-V4, V6 ABNORMAL ECG Electronically Signed On 04-16-2019 15:45:14 POST ANESTHESIA NURSE by Ricardo Childers D.O.
--- NOTE | 2019-04-16 12:57 | PM.PNCARD ---
Progress Note: A&P Assessment and Plan (1) Atrial fibrillation, new onset: Code(s): I48.91 - Unspecified atrial fibrillation Status: Acute Assessment and Plan: AFib new onset with RVR converted to sinus rhythm was Cardizem. She was asymptomatic during this episode so it is unclear AF that accounts for her slumping at the [facility]. Amlodipine changed to metoprolol to help prevent recurrence and control heart rate Maintaining normal sinus rhythm. Continue Metoprolol. Check EKG. CHADS2 Vasc score is 7, corresponding to about a 10% risk per year of cardioembolic events. However, with her frequent falls and severe anemia, at this time, it is unwise to start anticoagulation. Of note however, it is not known that aspirin plus Plavix is any safer than anticoagulation. We can re-evaluate if the anemia stabilizes and if her falls are reduced. (2) Generalized weakness: Code(s): R53.1 - Weakness Status: Acute Assessment and Plan: Unclear etiology she is frail. Perhaps some of that may be from AFib RVR? (3) Anemia: Code(s): D64.9 - Anemia, unspecified Status: Acute Assessment and Plan: Chronic anemia, worsened recently FOB pending (4) TIA (transient ischemic attack): Code(s): G45.9 - Transient cerebral ischemic attack, unspecified Status: Chronic Assessment and Plan: (5) Pleural effusion, right: Code(s): J90 - Pleural effusion, not elsewhere classified Status: Acute Assessment and Plan: Right pleural effusion noted, unclear if this is diastolic CHF (does not otherwise appear volume overloaded) or related to other causes such as pneumonia or malignancy. BNP 3260 this morning. Continue Lasix 20 mg IVP BID. Supplement potassium. Daily BMP (6) Elevated troponin: Code(s): R79.89 - Other specified abnormal findings of blood chemistry Status: Acute Assessment and Plan: Non-specific. Repeat troponin this morning 0.590. No ACS. Additional Plan She did choke on her pills this morning. Nurse reports that she took all of them at once and began to cough. Plan discussed with Dr Joey Ann 04/16/2019 Time Spent With Patient Time with patient: less than 15 minutes Subjective Date/time seen: 04/16/19 12:57 Interval history: Follow-up for: Rapid ventricular response, generalized weakness, anemia, TIA, right pleural effusion, elevated troponin Date of service: 04/16/2019. Subjective: Complains of feeling weak. No chest pain. Denied shortness of breath. ?Ordeal? getting her pills down this morning. No lightheadedness. Wants her breakfast. Review of Systems Constitutional: Constitutional: Reports fatigue, Reports lethargy and Reports weakness Eyes: Eyes: Denies blurry vision ENT: Denies epistaxis Cardiovascular: Cardiovascular: Denies chest pain, Denies pedal edema, Denies leg edema, Denies lightheadedness, Denies palpitations, Denies dyspnea and Denies dyspnea on exertion Respiratory: Respiratory: Denies hemoptysis, Denies dyspnea, Denies dyspnea on exertion and Denies wheezing Gastrointestinal: Gastrointestinal: Denies abdominal pain, Denies nausea and Denies hematemesis Genitourinary: Genitourinary: Denies hematuria, Reports urinary incontinence and Reports other (Urinary incontinence) Musculoskeletal: Musculoskeletal: Denies no additional musculoskeletal complaints and Reports numbness (Has peripheral neuropathy) Integumentary/Breasts: Skin/Breast: Denies rash and Denies unusual bruising Neurologic: Reports numbness (Has peripheral neuropathy) and Reports weakness Psychiatric: Psychiatric: Denies anxiety Endocrine: Endocrine: Rep
--- NOTE | 2019-04-16 16:41 | PM.IMPN ---
Progress Note: A&P Assessment and Plan (1) Generalized weakness: Code(s): R53.1 - Weakness Status: Acute Assessment and Plan: 04/16/19 16:41 Patient 83-year-old female a resident of [facility] with history of neuropathy in lower extremity as well as history of several TIA patient normally uses a walker to get around the [facility], while at the dining table patient was found slumped over and was brought to the emergency department for further evaluation, and time patient denies any chest pain shortness of breath palpitation fever or chills, to further evaluate patient had a CT scan of the head and MRI of the brain which are essentially normal without any acute injury, also had carotid ultrasound did not show any significant stenosis and cardiac echo was essentially normal, however today patient developed atrial fibrillation with RVR it was new onset for the patient patient was started on diltiazem drip was transferred to IMU while on the drip patient converted to sinus rhythm patient is seen by production tech, stop amlodipine and place the patient on metoprolol prevent recurrent atrial fibrillation, patient has had several falls and is a concern of anemia production tech recommending to hold anticoagulation for now the patient does require anticoagulation as her Chadscore is 7, will continue to monitor have PT OT evaluate the patient, today patient choked while taking all her pills at sametime, patient denies any complaint of chest pain shortness of breath palpitation fever or chills, her family is present in the room, (2) Anemia: Code(s): D64.9 - Anemia, unspecified Status: Acute Assessment and Plan: Patient has anemia has worsened it is typically around 10 with her hemoglobin but is down to 7 today. Will check and I fob in due to anemia profile. There is no obvious source of bleeding possibly hemodilution will continue to monitor (3) Neuropathy: Code(s): G62.9 - Polyneuropathy, unspecified Status: Chronic Assessment and Plan: Patient stated that she needs her repaired overall to sleep. (4) Multifocal PVCs: Code(s): I49.3 - Ventricular premature depolarization Status: Acute Assessment and Plan: Patient potassium is low, magnesium is normal, will supplement potassium and monitor (5) PAC (premature atrial contraction): Code(s): I49.1 - Atrial premature depolarization Status: Acute Assessment and Plan: Recheck electrolytes in the morning. (6) Hypokalemia: Code(s): E87.6 - Hypokalemia Status: Acute Assessment and Plan: I did give her supplemental today. Could be related to her hydrochlorothiazide. She takes a multivitamin but may need to be a potassium daily. (7) Anxiety: Code(s): F41.9 - Anxiety disorder, unspecified Status: Chronic Assessment and Plan: Continue with her Ativan (8) Depression: Code(s): F32.9 - Major depressive disorder, single episode, unspecified Status: Chronic Assessment and Plan: Continue with Zoloft. (9) Hypertension: Code(s): I10 - Essential (primary) hypertension Status: Chronic Assessment and Plan: Continue with lisinopril but may possibly need to hold her hydrochlorothiazide. I did give her potassium supplement. Continue with Norvasc. (10) TIA (transient ischemic attack): Code(s): G45.9 - Transient cerebral ischemic attack, unspecified Status: Chronic Assessment and Plan: Patient is on aspirin and Plavix. Will do a full stroke workup on the patient with carotids and an echo an MRI of the brain. (11) Atrial fibrillation, new onset: Code(s): I48.91 - Unspecified atrial fibrillation Status: Acute Assessment and Plan: Plan is above Subjective Date/time seen: 04/16/19 16:41 Patient 83-year-old female a resident of [facility] with history of neuropathy in lower extremity as well as history of s
[2019-04-16 19:38] LABS: Soluble Transferrin Receptor 0.93 mg/L (0.76-1.76)
[2019-04-16 20:27] LABS: Creatinine, Random Urine 82 mg/dL (20-275); Total Protein/Creatinine Ratio 134 mg/g creat (21-161)
[2019-04-16] MEDS: LORAZEPAM 0.5 MG TABLET PO (20:49)
[2019-04-16 23:12] LABS: Albumin 3.5 g/dL (3.8-4.8); Alpha 1 Globulin 0.3 g/dL (0.2-0.3); Alpha 2 Globulin 0.4 g/dL (0.5-0.9); Beta 1 Globulin 0.3 g/dL (0.4-0.6); Gamma Globulin 0.5 g/dL (0.8-1.7); Protein, Total 5.1 g/dL (6.1-8.1)
[2019-04-17] VITALS (32 sets, daily range): BP systolic 124–161; BP diastolic 59–97; PULSE 56–96; RESP 16–24; TEMP 36.2–37.7; O2SAT 92–100
[2019-04-17] MEDS: IPRATROPIUM BR 0.02% INH SOLN 0.5 MG/2.5 ML VIAL INHALATION ×4 (02:59→21:35)
[2019-04-17] MEDS: ALBUTEROL SULFATE NEB 2.5 MG/0.5 ML INH INHALATION ×4 (02:59→21:35)
[2019-04-17 05:18] LABS: Blood Urea Nitrogen 21 mg/dL (7-17); Calcium 9.4 mg/dL (8.4-10.2); Carbon Dioxide 30 mmol/L (22-30); Chloride 99 mmol/L (98-107); Estimated CRCL calculation 44 ml/min; Estimated Glomerular Filt Rate > 60; Glucose 98 mg/dL (65-105); Potassium 3.6 mmol/L (3.4-5.0); Sodium 136 mmol/L (137-145)
[2019-04-17 05:22] LABS: Immature Platelet Fraction Pct 3.4 % (0.9-11.2); Mean Corpuscular HGB Conc 31.4 g/dl (32-36); Mean Corpuscular Hemoglobin 29.3 pg (26-34); Mean Corpuscular Volume 93.3 fl (80-100); Red Blood Count 2.25 M/mm3 (4.2-5.4); Red Cell Distribution Width 15.4 % (11.5-14.5); White Blood Count 4.1 K/mm3 (4.5-10.0)
[2019-04-17 05:32] LABS: Hemoglobin 6.6 g/dL (12.0-15.0)
[2019-04-17] MEDS: BUDESONIDE RESPULE NEB 0.5 MG/2 ML AMP INHALATION ×2 (08:59→21:35)
--- NOTE | 2019-04-17 09:57 | PM.PNCARD ---
Progress Note: A&P Assessment and Plan (1) Atrial fibrillation, new onset: Code(s): I48.91 - Unspecified atrial fibrillation Status: Acute Assessment and Plan: AFib new onset with RVR converted to sinus rhythm with Cardizem. She was asymptomatic during this episode so it is unclear AF that accounts for her slumping at the halfway. Amlodipine changed to metoprolol to help prevent recurrence and control heart rate Maintaining normal sinus rhythm. Continue Metoprolol. CHADS2 Vasc score is 7, corresponding to about a 10% risk per year of cardioembolic events. However, with her frequent falls and severe anemia, at this time, it is unwise to start anticoagulation. Hemoglobin 6.6 this morning. Transfusion has been ordered. (2) Generalized weakness: Code(s): R53.1 - Weakness Status: Acute Assessment and Plan: Unclear etiology she is frail. Perhaps some of that may be from AFib RVR? (3) Anemia: Code(s): D64.9 - Anemia, unspecified Status: Acute Assessment and Plan: Chronic anemia. Hemoglobin 6.6. Stop aspirin and clopidogrel for now. IFOB has not been collected as of yet (4) TIA (transient ischemic attack): Code(s): G45.9 - Transient cerebral ischemic attack, unspecified Status: Chronic Assessment and Plan: Aspirin and clopidogrel as above (5) Pleural effusion, right: Code(s): J90 - Pleural effusion, not elsewhere classified Status: Acute Assessment and Plan: Right pleural effusion noted, unclear if this is diastolic CHF (does not otherwise appear volume overloaded) or related to other causes such as pneumonia or malignancy. BNP 3260 this morning. Continue Lasix 20 mg IVP BID. Supplement potassium. Daily BMP (6) Elevated troponin: Code(s): R79.89 - Other specified abnormal findings of blood chemistry Status: Acute Assessment and Plan: Non-specific. Repeat troponin 0.590 (peak 0.805) No ACS. Repeat EKG personally reviewed with Dr Cook at 1017: Sinus rhythm at 71 beats per minute with APCs and PVCs. Borderline/nonspecific ST T wave abnormalities. Baseline wonder in V 1 through V4 and V6. Additional Plan Plan discussed with Dr Cook 1017 04/17/2019 Subjective Date/time seen: 04/17/19 09:57 Interval history: Follow-up for: Rapid ventricular response, generalized weakness, anemia, TIA, right pleural effusion, elevated troponin Date of service: 04/17/2019. Subjective: ?Discussed did this morning?. Denied chest discomfort. Shortness of breath comes and goes. Feeling very weak. No lightheadedness. Review of Systems Constitutional: Constitutional: Reports fatigue, Reports lethargy and Reports weakness Eyes: Eyes: Denies blurry vision ENT: Denies epistaxis Cardiovascular: Cardiovascular: Denies chest pain, Denies pedal edema, Denies leg edema, Denies lightheadedness, Denies palpitations, Denies dyspnea and Reports dyspnea on exertion (?Comes and goes?) Respiratory: Respiratory: Denies hemoptysis, Denies dyspnea, Reports dyspnea on exertion (As above) and Denies wheezing Gastrointestinal: Gastrointestinal: Denies abdominal pain, Denies nausea and Denies hematemesis Genitourinary: Genitourinary: Denies hematuria, Reports urinary incontinence and Reports other (Urinary incontinence) Musculoskeletal: Musculoskeletal: Denies no additional musculoskeletal complaints and Reports numbness (Has peripheral neuropathy) Integumentary/Breasts: Skin/Breast: Denies rash and Denies unusual bruising Neurologic: Reports numbness (Has peripheral neuropathy) and Reports weakness Psychiatric: Psychiatric: Reports depression Endocrin
[2019-04-17] MEDS: SERTRALINE HCL 50 MG TABLET 100 MG PO ×2 (11:03→18:40)
[2019-04-17] MEDS: THERAPEUTIC MULTIVITAMINS/MINERALS TAB (*BKC) 1 TABLET PO (11:05)
[2019-04-17] MEDS: lisinopriL 20 MG TABLET PO ×2 (11:06→18:39)
[2019-04-17] MEDS: calcium polycarbophiL 625 MG TABLET PO ×2 (11:06→18:40)
[2019-04-17] MEDS: POTASSIUM CHLORIDE 20 MEQ TABLET.ER PO ×2 (11:07→18:41)
[2019-04-17] MEDS: hydroCHLOROthiazide 25 MG TABLET PO (11:07)
[2019-04-17] MEDS: FUROSEMIDE INJ 40 MG/4 ML VIAL 20 MG IV PUSH ×2 (11:07→18:39)
[2019-04-17] MEDS: METOPROLOL TARTRATE 25 MG TABLET PO ×2 (11:07→21:20)
[2019-04-17 11:21] LABS: Prothrombin Time 13.1 Seconds (11.1-14.7)
[2019-04-17 11:22] LABS: Partial Thromboplastin Time 30.8 SECONDS (22.3-36.8)
[2019-04-17] MEDS: TRAMADOL HCL 50 MG TABLET PO ×2 (11:25→18:38)
[2019-04-17] MEDS: SODIUM CHLORIDE 0.9% IV 500 ML 30 ML (12:37)
[2019-04-17] MEDS: DOCUSATE SODIUM 100 MG CAPSULE PO ×2 (12:37→21:20)
[2019-04-17] MEDS: TUBING, BLOOD PLUM PUMP TUBING 1 EACH XX (12:37)
--- NOTE | 2019-04-17 15:18 | PC.NURSE ---
On 04/17/19, the student, [KUSHAL DUTTON], provided care and completed [facility] documentation on this patient. I have reviewed the student's documentation and agree with the findings.
--- NOTE | 2019-04-17 16:40 | PM.IMPN ---
Progress Note: A&P Assessment and Plan (1) Generalized weakness: Code(s): R53.1 - Weakness Status: Acute Assessment and Plan: Patient 83-year-old female a resident of senior care with history of neuropathy in lower extremity as well as history of several TIA patient normally uses a walker to get around the senior care, while at the dining table patient was found slumped over and was brought to the emergency department for further evaluation, and time patient denies any chest pain shortness of breath palpitation fever or chills, to further evaluate patient had a CT scan of the head and MRI of the brain which are essentially normal without any acute injury, also had carotid ultrasound did not show any significant stenosis and cardiac echo was essentially normal, however today patient developed atrial fibrillation with RVR it was new onset for the patient patient was started on diltiazem drip was transferred to IMU while on the drip patient converted to sinus rhythm patient is seen by chemical waste management technician, stop amlodipine and place the patient on metoprolol prevent recurrent atrial fibrillation, patient has had several falls and is a concern of anemia chemical waste management technician recommending to hold anticoagulation for now the patient does require anticoagulation as her Chadscore is 7, will continue to monitor have PT OT evaluate the patient, today patient's hemoglobin is 6.6 patient denies any abdominal pain nausea or vomiting or any source of bleeding she did have normal bowel movement yesterday, patient is given 1 unit of pack RBC will monitor her hemoglobin every 6 hours and further recommendation to follow (2) Anemia: Code(s): D64.9 - Anemia, unspecified Status: Acute Assessment and Plan: Patient has anemia has worsened it is typically around 10 with her hemoglobin but is down to 7 today. Will check and I fob in due to anemia profile. There is no obvious source of bleeding possibly hemodilution will continue to monitor (3) Neuropathy: Code(s): G62.9 - Polyneuropathy, unspecified Status: Chronic Assessment and Plan: Patient stated that she needs her repaired overall to sleep. (4) Multifocal PVCs: Code(s): I49.3 - Ventricular premature depolarization Status: Acute Assessment and Plan: Patient potassium is low, magnesium is normal, will supplement potassium and monitor (5) PAC (premature atrial contraction): Code(s): I49.1 - Atrial premature depolarization Status: Acute Assessment and Plan: Recheck electrolytes in the morning. (6) Hypokalemia: Code(s): E87.6 - Hypokalemia Status: Acute Assessment and Plan: I did give her supplemental today. Could be related to her hydrochlorothiazide. She takes a multivitamin but may need to be a potassium daily. (7) Anxiety: Code(s): F41.9 - Anxiety disorder, unspecified Status: Chronic Assessment and Plan: Continue with her Ativan (8) Depression: Code(s): F32.9 - Major depressive disorder, single episode, unspecified Status: Chronic Assessment and Plan: Continue with Zoloft. (9) Hypertension: Code(s): I10 - Essential (primary) hypertension Status: Chronic Assessment and Plan: Continue with lisinopril but may possibly need to hold her hydrochlorothiazide. I did give her potassium supplement. Continue with Norvasc. (10) TIA (transient ischemic attack): Code(s): G45.9 - Transient cerebral ischemic attack, unspecified Status: Chronic Assessment and Plan: Patient is on aspirin and Plavix. Will do a full stroke workup on the patient with carotids and an echo an MRI of the brain. (11) Atrial fibrillation, new onset: Code(s): I48.91 - Unspecified atrial fibrillation Status: Acute Assessment and Plan: Plan is above Subjective Date/time seen: Patient 83-year-old female a resident of senior care with history
[2019-04-17 17:45] LABS: Hematocrit 25.1 % (37.0-47.0); Hemoglobin 8.3 g/dL (12.0-15.0)
[2019-04-17] MEDS: LORAZEPAM 0.5 MG TABLET PO (21:20)
[2019-04-18] VITALS (22 sets, daily range): BP systolic 127–156; BP diastolic 70–78; PULSE 60–79; RESP 18–24; TEMP 36.2–37.3; O2SAT 94–98
[2019-04-18] MEDS: IPRATROPIUM BR 0.02% INH SOLN 0.5 MG/2.5 ML VIAL INHALATION ×3 (02:40→13:55)
[2019-04-18] MEDS: ALBUTEROL SULFATE NEB 2.5 MG/0.5 ML INH INHALATION ×4 (02:40→20:21)
--- NOTE | 2019-04-18 04:11 | PCRCNOTE ---
[facility]
[2019-04-18 05:39] LABS: Hematocrit 26.1 % (37.0-47.0); Hemoglobin 8.7 g/dL (12.0-15.0); Mean Corpuscular HGB Conc 33.3 g/dl (32-36); Mean Corpuscular Hemoglobin 29.2 pg (26-34); Mean Corpuscular Volume 87.6 fl (80-100); Mean Platelet Volume 11.5 fl (7.4-10.4); Platelet Count Result 146 k/mm3 (150-375); Red Blood Count 2.98 M/mm3 (4.2-5.4); Red Cell Distribution Width 15.1 % (11.5-14.5); White Blood Count 6.2 K/mm3 (4.5-10.0)
[2019-04-18 05:48] LABS: Blood Urea Nitrogen 24 mg/dL (7-17); Calcium 9.7 mg/dL (8.4-10.2); Carbon Dioxide 31 mmol/L (22-30); Chloride 96 mmol/L (98-107); Estimated CRCL calculation 45 ml/min; Estimated Glomerular Filt Rate > 60; Glucose 94 mg/dL (65-105); Potassium 3.2 mmol/L (3.4-5.0); Sodium 136 mmol/L (137-145)
[2019-04-18] MEDS: BUDESONIDE RESPULE NEB 0.5 MG/2 ML AMP INHALATION ×2 (08:50→20:21)
--- NOTE | 2019-04-18 09:32 | WPDCDIQUERY2 ---
CDI Query Clarification Request --Pt is on Lasix 20mg IV BID --Cardiology documented, Pleural effusion,right. Right pleural effusion noted, unclear if this is diastolic CHF (does not otherwise appear volume overloaded) or related to other causes such as pneumonia or malignancy. Check BNP, try some diuretic and see if it resolves. Lasix 20 mg IVP BID. --BNP 3260 --CXR with moderate right pleural effusion --No mention of pleural effusion or CHF by hospitalist Please clarify on problem list, diagnosis for Lasix 20mg IV BID. <Maribel Zheng RN - Last Filed: 04/18/19 09:37>
[2019-04-18] MEDS: calcium polycarbophiL 625 MG TABLET PO ×2 (10:19→18:05)
[2019-04-18] MEDS: THERAPEUTIC MULTIVITAMINS/MINERALS TAB (*BKC) 1 TABLET PO (10:19)
[2019-04-18] MEDS: SERTRALINE HCL 50 MG TABLET 100 MG PO ×2 (10:19→18:06)
[2019-04-18] MEDS: hydroCHLOROthiazide 25 MG TABLET PO (10:19)
[2019-04-18] MEDS: lisinopriL 20 MG TABLET PO ×2 (10:19→18:05)
[2019-04-18] MEDS: TRAMADOL HCL 50 MG TABLET PO ×2 (10:19→19:30)
[2019-04-18] MEDS: DOCUSATE SODIUM 100 MG CAPSULE PO ×2 (10:19→20:27)
[2019-04-18] MEDS: METOPROLOL TARTRATE 25 MG TABLET PO (10:20)
[2019-04-18] MEDS: CYANOCOBALAMIN 1,000 MCG TABLET 1000 MCG PO (10:20)
[2019-04-18] MEDS: FUROSEMIDE INJ 40 MG/4 ML VIAL 20 MG IV PUSH (10:20)
[2019-04-18] MEDS: POTASSIUM CHLORIDE 20 MEQ PACKET (FOR LIQUID) 40 MEQ PO (10:26)
--- NOTE | 2019-04-18 13:13 | PCPTNOTE ---
The patient treatment was not able to be completed on [04/16-04/18] due to [needs reevaluation and having to accommodate patient priority status]. Will plan to re-evalaute and update plan of care.
--- NOTE | 2019-04-18 13:21 | PCOTNOTE ---
The patient treatment was not able to be completed on 04/17/2019 due to adherence to patient prioritization policy. Patient reburies re-evaluation, will plan to continue treatment per plan of care as deemed appropriate.
--- NOTE | 2019-04-18 14:54 | PM.PNCARD ---
Progress Note: A&P Assessment and Plan (1) Atrial fibrillation, new onset: Code(s): I48.91 - Unspecified atrial fibrillation Status: Acute Assessment and Plan: AFib new onset with RVR converted to sinus rhythm with Cardizem. She was asymptomatic during this episode so it is unclear AF that accounts for her slumping at the assisted. Amlodipine changed to metoprolol to help prevent recurrence and control heart rate Maintaining normal sinus rhythm. Increase Metoprolol to 50 mg q.12 hours for better blood pressure control CHADS2 Vasc score is 7, corresponding to about a 10% risk per year of cardioembolic events. However, with her frequent falls and severe anemia, at this time, it is unwise to start anticoagulation. Hemoglobin 6.6 04/17/2019. Transfused 1 unit. (2) Generalized weakness: Code(s): R53.1 - Weakness Status: Acute Assessment and Plan: Unclear etiology she is frail. Perhaps some of that may be from AFib RVR? (3) Anemia: Code(s): D64.9 - Anemia, unspecified Status: Acute Assessment and Plan: Chronic anemia. Hemoglobin 6.6 04/17/2019. Transfused 1 unit. 8.3 on recheck yesterday and 8.7 this morning. Aspirin and clopidogrel held Restart clopidogrel and monitor H&H IFOB still has not been collected as of yet (4) TIA (transient ischemic attack): Code(s): G45.9 - Transient cerebral ischemic attack, unspecified Status: Chronic Assessment and Plan: Aspirin and clopidogrel as above (5) Pleural effusion, right: Code(s): J90 - Pleural effusion, not elsewhere classified Status: Acute Assessment and Plan: Right pleural effusion. Unclear if this is diastolic CHF (does not otherwise appear volume overloaded) or related to other causes such as pneumonia or malignancy. BNP 3260 04/16/2019. Change furosemide to 20 mg p.o. b.i.d.. Monitor renal function and electrolytes. Potassium has been supplemented for potassium of 3.2. BMP and magnesium in the morning.. (6) Elevated troponin: Code(s): R79.89 - Other specified abnormal findings of blood chemistry Status: Acute Assessment and Plan: Non-specific. Repeat troponin 0.590 (peak 0.805) No ACS. Repeat EKG personally reviewed with Dr Cook at 1017: Sinus rhythm at 71 beats per minute with APCs and PVCs. Borderline/nonspecific ST T wave abnormalities. Baseline wonder in V 1 through V4 and V6. Additional Plan OK to transfer to medicine without telemetry. Plan discussed with Dr. Renetta Colby 04/18/2019 Subjective Date/time seen: 04/18/19 14:54 Interval history: Follow-up for: Atrial fibrillation with rapid ventricular response, generalized weakness, anemia, TIA, right pleural effusion, elevated troponin Date of service: 04/18/2019. Subjective: Denied chest discomfort. States is not short of breath but has not walked yet. Up to the chair or commode and back to bed only. No lightheadedness or palpitations. Review of Systems Constitutional: Constitutional: Reports fatigue, Reports lethargy and Reports weakness Eyes: Eyes: Denies blurry vision ENT: Denies epistaxis Cardiovascular: Cardiovascular: Denies chest pain, Denies pedal edema, Denies leg edema, Denies lightheadedness, Denies palpitations and Denies dyspnea Respiratory: Respiratory: Denies hemoptysis, Denies dyspnea and Denies wheezing Gastrointestinal: Gastrointestinal: Denies abdominal pain, Denies nausea and Denies hematemesis Genitourinary: Genitourinary: Denies hematuria, Reports urinary incontinence and Reports other (Urinary incontinence) Musculoskeletal: Musculoskeletal: Denies no additional musculoskeletal com
--- NOTE | 2019-04-18 15:44 | PCOTNOTE ---
The patient treatment was not able to be completed on 04/18/2019 due to adherence to patient prioritization policy. Patient reburies re-evaluation, will plan to continue treatment per plan of care as deemed appropriate.
--- NOTE | 2019-04-18 16:52 | PM.IMPN ---
Progress Note: A&P Assessment and Plan (1) Generalized weakness: Code(s): R53.1 - Weakness Status: Acute Assessment and Plan: Patient 83-year-old female a resident of group home with history of neuropathy in lower extremity as well as history of several TIA patient normally uses a walker to get around the group home, while at the dining table patient was found slumped over and was brought to the emergency department for further evaluation, and time patient denies any chest pain shortness of breath palpitation fever or chills, to further evaluate patient had a CT scan of the head and MRI of the brain which are essentially normal without any acute injury, also had carotid ultrasound did not show any significant stenosis and cardiac echo was essentially normal, however today patient developed atrial fibrillation with RVR it was new onset for the patient patient was started on diltiazem drip was transferred to IMU while on the drip patient converted to sinus rhythm patient is seen by fpga engineer, stop amlodipine and place the patient on metoprolol prevent recurrent atrial fibrillation, patient has had several falls and is a concern of anemia fpga engineer recommending to hold anticoagulation for now the patient does require anticoagulation as her Chadscore is 7, will continue to monitor have PT OT evaluate the patient, today patient's hemoglobin is 6.6 patient denies any abdominal pain nausea or vomiting or any source of bleeding she did have normal bowel movement 04/16, patient was given 1 unit of pack RBC, today patient hemoglobin is stable, patient is seen by fpga engineer metoprolol was increased 50 mg b.i.d. to better control heart rate and blood pressure, patient denies any chest pain shortness of breath palpitation fever or chills see denies any bleeding, but of being weak and tired (2) Anemia: Code(s): D64.9 - Anemia, unspecified Status: Acute Assessment and Plan: Patient has anemia has worsened it is typically around 10 with her hemoglobin but is down to 7 today. Will check and I fob in due to anemia profile. There is no obvious source of bleeding possibly hemodilution will continue to monitor (3) Neuropathy: Code(s): G62.9 - Polyneuropathy, unspecified Status: Chronic Assessment and Plan: Patient stated that she needs her repaired overall to sleep. (4) Multifocal PVCs: Code(s): I49.3 - Ventricular premature depolarization Status: Acute Assessment and Plan: Patient potassium is low, magnesium is normal, will supplement potassium and monitor (5) PAC (premature atrial contraction): Code(s): I49.1 - Atrial premature depolarization Status: Acute Assessment and Plan: Recheck electrolytes in the morning. (6) Hypokalemia: Code(s): E87.6 - Hypokalemia Status: Acute Assessment and Plan: I did give her supplemental today. Could be related to her hydrochlorothiazide. She takes a multivitamin but may need to be a potassium daily. (7) Anxiety: Code(s): F41.9 - Anxiety disorder, unspecified Status: Chronic Assessment and Plan: Continue with her Ativan (8) Depression: Code(s): F32.9 - Major depressive disorder, single episode, unspecified Status: Chronic Assessment and Plan: Continue with Zoloft. (9) Hypertension: Code(s): I10 - Essential (primary) hypertension Status: Chronic Assessment and Plan: Continue with lisinopril but may possibly need to hold her hydrochlorothiazide. I did give her potassium supplement. Continue with Norvasc. (10) TIA (transient ischemic attack): Code(s): G45.9 - Transient cerebral ischemic attack, unspecified Status: Chronic Assessment and Plan: Patient is on aspirin and Plavix. Will do a full stroke workup on the patient with carotids and an echo an MRI of the brain. (11) Atrial fibrillation, new onset: Code(s): I4
--- NOTE | 2019-04-18 17:51 | PC.NURSE ---
This patient, Shonda Wiggins, was received from [[id number] ] on 04/18/19 at 1720. Personal belongings list checked and signed. Patient/family oriented to unit policies and routines
[2019-04-18] MEDS: FUROSEMIDE 20 MG TABLET PO (18:05)
[2019-04-18] MEDS: POTASSIUM CHLORIDE 20 MEQ TABLET.ER PO (18:06)
[2019-04-18] MEDS: LORAZEPAM 0.5 MG TABLET PO (20:28)
[2019-04-18] MEDS: METOPROLOL TARTRATE 50 MG TAB PO (20:28)
[2019-04-19] VITALS (12 sets, daily range): BP systolic 142–144; BP diastolic 59–81; PULSE 56–80; RESP 16–20; TEMP 36.6–37.3; O2SAT 93–97
[2019-04-19] MEDS: IPRATROPIUM BR 0.02% INH SOLN 0.5 MG/2.5 ML VIAL INHALATION ×4 (03:14→22:13)
[2019-04-19] MEDS: ALBUTEROL SULFATE NEB 2.5 MG/0.5 ML INH INHALATION ×3 (03:15→22:13)
[2019-04-19 06:34] LABS: Hematocrit 28.3 % (37.0-47.0); Hemoglobin 9.1 g/dL (12.0-15.0); Mean Corpuscular HGB Conc 32.2 g/dl (32-36); Mean Corpuscular Hemoglobin 29.2 pg (26-34); Mean Corpuscular Volume 90.7 fl (80-100); Mean Platelet Volume 12.3 fl (7.4-10.4); Platelet Count Result 120 k/mm3 (150-375); Red Blood Count 3.12 M/mm3 (4.2-5.4); Red Cell Distribution Width 15.3 % (11.5-14.5); White Blood Count 6.6 K/mm3 (4.5-10.0)
[2019-04-19 06:50] LABS: Blood Urea Nitrogen 25 mg/dL (7-17); Calcium 9.6 mg/dL (8.4-10.2); Carbon Dioxide 29 mmol/L (22-30); Chloride 95 mmol/L (98-107); Estimated CRCL calculation 42 ml/min; Estimated Glomerular Filt Rate > 60; Glucose 99 mg/dL (65-105); Potassium 3.7 mmol/L (3.4-5.0); Sodium 135 mmol/L (137-145)
[2019-04-19 06:56] LABS: NT Pro B Type Natriuretic Pept 3510 PG/ML (5-100)
[2019-04-19] MEDS: POTASSIUM CHLORIDE 20 MEQ TABLET.ER PO ×2 (08:39→17:41)
[2019-04-19] MEDS: CYANOCOBALAMIN 1,000 MCG TABLET 1000 MCG PO (08:40)
[2019-04-19] MEDS: calcium polycarbophiL 625 MG TABLET PO ×2 (08:40→17:41)
[2019-04-19] MEDS: FUROSEMIDE 20 MG TABLET PO ×2 (08:41→17:42)
[2019-04-19] MEDS: DOCUSATE SODIUM 100 MG CAPSULE PO ×2 (08:41→20:46)
[2019-04-19] MEDS: lisinopriL 20 MG TABLET PO ×2 (08:41→17:42)
[2019-04-19] MEDS: THERAPEUTIC MULTIVITAMINS/MINERALS TAB (*BKC) 1 TABLET PO (08:42)
[2019-04-19] MEDS: SERTRALINE HCL 50 MG TABLET 100 MG PO ×2 (08:42→17:42)
[2019-04-19] MEDS: TRAMADOL HCL 50 MG TABLET PO ×2 (08:46→17:41)
[2019-04-19] MEDS: BUDESONIDE RESPULE NEB 0.5 MG/2 ML AMP INHALATION ×2 (09:27→22:13)
[2019-04-19] MEDS: METOPROLOL TARTRATE 50 MG TAB PO ×2 (10:16→20:46)
[2019-04-19] MEDS: CLOPIDOGREL BISULFATE 75 MG TABLET PO (11:23)
--- NOTE | 2019-04-19 13:35 | PM.IMPN ---
Progress Note: A&P Assessment and Plan (1) Generalized weakness: Code(s): R53.1 - Weakness Status: Acute Assessment and Plan: 04/19/19 13:35 Patient 83-year-old female a resident of [facility] with history of neuropathy in lower extremity as well as history of several TIA patient normally uses a walker to get around the [facility], while at the dining table patient was found slumped over and was brought to the emergency department for further evaluation, and time patient denies any chest pain shortness of breath palpitation fever or chills, to further evaluate patient had a CT scan of the head and MRI of the brain which are essentially normal without any acute injury, also had carotid ultrasound did not show any significant stenosis and cardiac echo was essentially normal, however today patient developed atrial fibrillation with RVR it was new onset for the patient patient was started on diltiazem drip was transferred to IMU while on the drip patient converted to sinus rhythm patient is seen by surface boss, stop amlodipine and place the patient on metoprolol prevent recurrent atrial fibrillation, patient has had several falls and is a concern of anemia surface boss recommending to hold anticoagulation for now the patient does require anticoagulation as her Chadscore is 7, will continue to monitor have PT OT evaluate the patient, today patient's hemoglobin is 6.6 patient denies any abdominal pain nausea or vomiting or any source of bleeding she did have normal bowel movement 04/16, patient was given 1 unit of pack RBC, today patient hemoglobin is stable, patient is seen by surface boss metoprolol was increased 50 mg b.i.d. to better control heart rate and blood pressure, patient denies any chest pain shortness of breath palpitation fever or chills see denies any bleeding, but of being weak and tired, patient is unable to participate in physical therapy will discuss with family (2) Anemia: Code(s): D64.9 - Anemia, unspecified Status: Acute Assessment and Plan: Patient has anemia has worsened it is typically around 10 with her hemoglobin but is down to 7 today. Will check and I fob in due to anemia profile. There is no obvious source of bleeding possibly hemodilution will continue to monitor (3) Neuropathy: Code(s): G62.9 - Polyneuropathy, unspecified Status: Chronic Assessment and Plan: Patient stated that she needs her repaired overall to sleep. (4) Multifocal PVCs: Code(s): I49.3 - Ventricular premature depolarization Status: Acute Assessment and Plan: Patient potassium is low, magnesium is normal, will supplement potassium and monitor (5) PAC (premature atrial contraction): Code(s): I49.1 - Atrial premature depolarization Status: Acute Assessment and Plan: Recheck electrolytes in the morning. (6) Hypokalemia: Code(s): E87.6 - Hypokalemia Status: Acute Assessment and Plan: I did give her supplemental today. Could be related to her hydrochlorothiazide. She takes a multivitamin but may need to be a potassium daily. (7) Anxiety: Code(s): F41.9 - Anxiety disorder, unspecified Status: Chronic Assessment and Plan: Continue with her Ativan (8) Depression: Code(s): F32.9 - Major depressive disorder, single episode, unspecified Status: Chronic Assessment and Plan: Continue with Zoloft. (9) Hypertension: Code(s): I10 - Essential (primary) hypertension Status: Chronic Assessment and Plan: Continue with lisinopril but may possibly need to hold her hydrochlorothiazide. I did give her potassium supplement. Continue with Norvasc. (10) TIA (transient ischemic attack): Code(s): G45.9 - Transient cerebral ischemic attack, unspecified Status: Chronic Assessment and Plan: Patient is on aspirin and Plavix. Will do a full stroke workup on the patient with ca
--- NOTE | 2019-04-19 13:54 | PM.PNCARD ---
Progress Note: A&P Assessment and Plan (1) Atrial fibrillation, new onset: Code(s): I48.91 - Unspecified atrial fibrillation Status: Acute Assessment and Plan: Paroxysmal atrial fibrillation, not deemed to be a candidate for anticoagulation due to falls and anemia. Continue metoprolol. Hemoglobin 6.6 04/17/2019. Transfused 1 unit. (2) Generalized weakness: Code(s): R53.1 - Weakness Status: Acute Assessment and Plan: Unclear etiology she is frail. (3) Anemia: Code(s): D64.9 - Anemia, unspecified Status: Acute Assessment and Plan: Chronic anemia. Hemoglobin 6.6 04/17/2019. Transfused 1 unit. Monitor CBC. (4) TIA (transient ischemic attack): Code(s): G45.9 - Transient cerebral ischemic attack, unspecified Status: Chronic Assessment and Plan: One antiplatelet therapy (5) Pleural effusion, right: Code(s): J90 - Pleural effusion, not elsewhere classified Status: Acute Assessment and Plan: Right pleural effusion. Unclear if this is diastolic CHF (does not otherwise appear volume overloaded) or related to other causes such as pneumonia or malignancy. BNP 3260 04/16/2019. Continue gentle diuresis (6) Elevated troponin: Code(s): R79.89 - Other specified abnormal findings of blood chemistry Status: Acute Assessment and Plan: Non-specific. Conservative/supportive treatment Additional Plan Discharge planning. Will follow on p.r.n. basis. Subjective Date/time seen: 04/19/19 13:54 Interval history: Follow-up for: Atrial fibrillation with rapid ventricular response, generalized weakness, anemia, TIA, right pleural effusion, elevated troponin Date of service: 04/18/2019. Subjective: Denied chest discomfort. States is not short of breath but has not walked yet. Up to the chair or commode and back to bed only. No lightheadedness or palpitations. 04/19/2019-patient denies chest pain, palpitations. Exam Narrative: Exam Narrative: Thin older lady who appears frail and foggy, no distress. Const: General: no acute distress Orientation/consciousness: patient oriented x3 HENMT: Mouth: Yes moist mucous membranes Eyes: Conjunctivae: conjunctival abnormality bilateral pallor EOM: EOMs intact bilaterally Neck: Neck: supple Resp: Effort & Inspection: normal respiratory effort and able to speak in complete sentences Auscultation: diminished lung sounds on the right in the lower lung ann Cardio: Heart sounds: Murmur heart sound present (1/6 HEAVENLY left sternal border) Other: Irregular rhythm GI: Auscultation: normal bowel sounds Skin: General skin exam: other (Pale) Lesions: lesion noted (Ecchymosis of hands) Other: Significant ecchymosis to her hands bilaterally. Neuro: General: oriented to person Cognition (Neuro): abnormal cognition (Memory loss noted. ) Speech: normal speech (Speech is hesitant) Extrem: Right lower extremity: no edema Left lower extremity: no edema Psych: Affect: Sad affect present Objective Data Vital Signs Vital Signs: Vital Signs - 24 hr 04/18/19 13:55 04/18/19 14:00 04/18/19 14:06 Temperature Pulse Rate 60 68 62 Respiratory Rate 18 18 Blood Pressure Pulse Oximetry 04/18/19 17:00 04/18/19 20:00 04/18/19 20:22 Temperature 36.2 C L Pulse Rate 78 60 Respiratory Rate 20 20 18 Blood Pressure 150/73 H Pulse Oximetry 98 94 04/18/19 20:28 04/18/19 20:30 04/18/19 20:31 Temperature Pulse Rate 74 62 Respiratory Rate 18 Blood Pressure Pulse Oximetry 94 04/18/19 22:00 04/19/19 03:16 04/19/19 03:25 Temperature 36.7 C Pulse Rate 69 60 66 Respiratory Rate 20 18 Blood Pressure 127/77 Pulse Ox
--- NOTE | 2019-04-19 16:26 | PCPTNOTE ---
The patient treatment was not able to be completed on 04/19/2019. Will plan to continue treatment per plan of care.
[2019-04-19] MEDS: LORAZEPAM 0.5 MG TABLET PO (20:46)
[2019-04-20] VITALS (13 sets, daily range): BP systolic 144–163; BP diastolic 66–84; PULSE 56–76; RESP 16–22; TEMP 36.7–37.2; O2SAT 92–100
[2019-04-20] MEDS: ALBUTEROL SULFATE NEB 2.5 MG/0.5 ML INH INHALATION ×4 (02:25→21:01)
[2019-04-20] MEDS: IPRATROPIUM BR 0.02% INH SOLN 0.5 MG/2.5 ML VIAL INHALATION ×4 (02:25→21:01)
[2019-04-20 06:20] LABS: Hematocrit 30.1 % (37.0-47.0); Hemoglobin 9.6 g/dL (12.0-15.0); Mean Corpuscular HGB Conc 31.9 g/dl (32-36); Mean Corpuscular Hemoglobin 29.3 pg (26-34); Mean Corpuscular Volume 91.8 fl (80-100); Mean Platelet Volume 11.8 fl (7.4-10.4); Platelet Count Result 174 k/mm3 (150-375); Red Blood Count 3.28 M/mm3 (4.2-5.4); Red Cell Distribution Width 15.3 % (11.5-14.5); White Blood Count 5.9 K/mm3 (4.5-10.0)
[2019-04-20 06:40] LABS: Blood Urea Nitrogen 24 mg/dL (7-17); Calcium 9.2 mg/dL (8.4-10.2); Carbon Dioxide 33 mmol/L (22-30); Chloride 97 mmol/L (98-107); Estimated CRCL calculation 48 ml/min; Estimated Glomerular Filt Rate > 60; Glucose 99 mg/dL (65-105); Potassium 3.7 mmol/L (3.4-5.0); Sodium 137 mmol/L (137-145)
[2019-04-20] MEDS: METOPROLOL TARTRATE 50 MG TAB PO ×2 (08:19→20:47)
[2019-04-20] MEDS: CLOPIDOGREL BISULFATE 75 MG TABLET PO (08:19)
[2019-04-20] MEDS: TRAMADOL HCL 50 MG TABLET PO ×2 (08:19→18:00)
[2019-04-20] MEDS: FUROSEMIDE 20 MG TABLET PO ×2 (08:21→17:58)
[2019-04-20] MEDS: calcium polycarbophiL 625 MG TABLET PO ×2 (08:21→17:59)
[2019-04-20] MEDS: POTASSIUM CHLORIDE 20 MEQ TABLET.ER PO ×2 (08:21→17:59)
[2019-04-20] MEDS: DOCUSATE SODIUM 100 MG CAPSULE PO ×2 (08:21→20:46)
[2019-04-20] MEDS: THERAPEUTIC MULTIVITAMINS/MINERALS TAB (*BKC) 1 TABLET PO (08:21)
[2019-04-20] MEDS: SERTRALINE HCL 50 MG TABLET 100 MG PO ×2 (08:22→18:00)
[2019-04-20] MEDS: CYANOCOBALAMIN 1,000 MCG TABLET 1000 MCG PO (08:22)
[2019-04-20] MEDS: lisinopriL 20 MG TABLET PO ×2 (08:22→17:59)
[2019-04-20] MEDS: BUDESONIDE RESPULE NEB 0.5 MG/2 ML AMP INHALATION ×2 (08:26→21:01)
--- NOTE | 2019-04-20 16:24 | PM.IMPN ---
Progress Note: A&P Assessment and Plan (1) Generalized weakness: Code(s): R53.1 - Weakness Status: Acute Assessment and Plan: 04/20/19 16:24 Patient 83-year-old female a resident of long-term with history of neuropathy in lower extremity as well as history of several TIA patient normally uses a walker to get around the long-term, while at the dining table patient was found slumped over and was brought to the emergency department for further evaluation, and time patient denies any chest pain shortness of breath palpitation fever or chills, to further evaluate patient had a CT scan of the head and MRI of the brain which are essentially normal without any acute injury, also had carotid ultrasound did not show any significant stenosis and cardiac echo was essentially normal, however today patient developed atrial fibrillation with RVR it was new onset for the patient patient was started on diltiazem drip was transferred to IMU while on the drip patient converted to sinus rhythm patient is seen by instrumentation engineer, stop amlodipine and place the patient on metoprolol prevent recurrent atrial fibrillation, patient has had several falls and is a concern of anemia instrumentation engineer recommending to hold anticoagulation for now the patient does require anticoagulation as her Chadscore is 7, will continue to monitor have PT OT evaluate the patient, today patient's hemoglobin is 6.6 patient denies any abdominal pain nausea or vomiting or any source of bleeding she did have normal bowel movement 04/16, patient was given 1 unit of pack RBC, today patient hemoglobin is stable, patient is seen by instrumentation engineer metoprolol was increased 50 mg b.i.d. to better control heart rate and blood pressure, patient denies any chest pain shortness of breath palpitation fever or chills see denies any bleeding, but of being weak and tired, patient is unable to participate in physical therapy and recommending the patient will benefit from going to rehab possibly [facility] or SNF. (2) Anemia: Code(s): D64.9 - Anemia, unspecified Status: Acute Assessment and Plan: Patient has anemia has worsened it is typically around 10 with her hemoglobin but is down to 7 today. Will check and I fob in due to anemia profile. There is no obvious source of bleeding possibly hemodilution will continue to monitor (3) Neuropathy: Code(s): G62.9 - Polyneuropathy, unspecified Status: Chronic Assessment and Plan: Patient stated that she needs her repaired overall to sleep. (4) Multifocal PVCs: Code(s): I49.3 - Ventricular premature depolarization Status: Acute Assessment and Plan: Patient potassium is low, magnesium is normal, will supplement potassium and monitor (5) PAC (premature atrial contraction): Code(s): I49.1 - Atrial premature depolarization Status: Acute Assessment and Plan: Recheck electrolytes in the morning. (6) Hypokalemia: Code(s): E87.6 - Hypokalemia Status: Acute Assessment and Plan: I did give her supplemental today. Could be related to her hydrochlorothiazide. She takes a multivitamin but may need to be a potassium daily. (7) Anxiety: Code(s): F41.9 - Anxiety disorder, unspecified Status: Chronic Assessment and Plan: Continue with her Ativan (8) Depression: Code(s): F32.9 - Major depressive disorder, single episode, unspecified Status: Chronic Assessment and Plan: Continue with Zoloft. (9) Hypertension: Code(s): I10 - Essential (primary) hypertension Status: Chronic Assessment and Plan: Continue with lisinopril but may possibly need to hold her hydrochlorothiazide. I did give her potassium supplement. Continue with Norvasc. (10) TIA (transient ischemic attack): Code(s): G45.9 - Transient cerebral ischemic attack, unspecified Status: Chronic Assessment and Plan: Patient is on aspirin and Pl
[2019-04-20] MEDS: LORAZEPAM 0.5 MG TABLET PO (20:47)
[2019-04-21] VITALS (10 sets, daily range): BP systolic 117–156; BP diastolic 69–76; PULSE 56–81; RESP 16–20; TEMP 36.6–36.8; O2SAT 93–94
[2019-04-21] MEDS: IPRATROPIUM BR 0.02% INH SOLN 0.5 MG/2.5 ML VIAL INHALATION ×3 (03:10→14:06)
[2019-04-21] MEDS: ALBUTEROL SULFATE NEB 2.5 MG/0.5 ML INH INHALATION ×3 (03:10→14:05)
[2019-04-21 06:23] LABS: Hematocrit 29.4 % (37.0-47.0); Hemoglobin 9.4 g/dL (12.0-15.0); Mean Corpuscular Hemoglobin 29.2 pg (26-34); Mean Corpuscular Volume 91.3 fl (80-100); Mean Platelet Volume 10.6 fl (7.4-10.4); Platelet Count Result 173 k/mm3 (150-375); Red Blood Count 3.22 M/mm3 (4.2-5.4); Red Cell Distribution Width 15.3 % (11.5-14.5); White Blood Count 5.7 K/mm3 (4.5-10.0)
[2019-04-21 06:35] LABS: Blood Urea Nitrogen 22 mg/dL (7-17); Calcium 9.5 mg/dL (8.4-10.2); Carbon Dioxide 30 mmol/L (22-30); Chloride 100 mmol/L (98-107); Estimated CRCL calculation 48 ml/min; Estimated Glomerular Filt Rate > 60; Glucose 100 mg/dL (65-105); Potassium 3.7 mmol/L (3.4-5.0); Sodium 137 mmol/L (137-145)
--- NOTE | 2019-04-21 10:31 | PM.PNCARD ---
Progress Note: A&P Assessment and Plan (1) Atrial fibrillation, new onset: Code(s): I48.91 - Unspecified atrial fibrillation Status: Acute Assessment and Plan: Paroxysmal atrial fibrillation, not deemed to be a candidate for anticoagulation due to falls and anemia. Continue metoprolol. Hemoglobin 6.6 04/17/2019. Transfused 1 unit. (2) Generalized weakness: Code(s): R53.1 - Weakness Status: Acute Assessment and Plan: Unclear etiology she is frail. (3) Anemia: Code(s): D64.9 - Anemia, unspecified Status: Acute Assessment and Plan: Chronic anemia. Hemoglobin 6.6 04/17/2019. Transfused 1 unit. Monitor CBC. (4) TIA (transient ischemic attack): Code(s): G45.9 - Transient cerebral ischemic attack, unspecified Status: Chronic Assessment and Plan: One antiplatelet therapy (5) Pleural effusion, right: Code(s): J90 - Pleural effusion, not elsewhere classified Status: Acute Assessment and Plan: Right pleural effusion. Unclear if this is diastolic CHF (does not otherwise appear volume overloaded) or related to other causes such as pneumonia or malignancy. BNP 3260 04/16/2019. Continue gentle diuresis (6) Elevated troponin: Code(s): R79.89 - Other specified abnormal findings of blood chemistry Status: Acute Assessment and Plan: Non-specific. Conservative/supportive treatment (7) Hypertension: Code(s): I10 - Essential (primary) hypertension Status: Chronic Assessment and Plan: BP elevated. Resume hydrochlorothiazide 12.5 mg p.o. daily. Reduce furosemide down to 20 mg daily. Follow Bmp Subjective Date/time seen: 04/21/19 10:31 Interval history: Follow-up for: Atrial fibrillation with rapid ventricular response, generalized weakness, anemia, TIA, right pleural effusion, elevated troponin Date of service: 04/21/2019: She feels weak. She is bruised is no chest pain or shortness of breath at rest Review of Systems Constitutional: Constitutional: Reports fatigue, Reports lethargy and Reports weakness Eyes: Eyes: Denies blurry vision ENT: Denies epistaxis Cardiovascular: Cardiovascular: Denies chest pain, Denies pedal edema, Denies leg edema, Denies lightheadedness, Denies palpitations and Denies dyspnea Respiratory: Respiratory: Denies hemoptysis, Denies dyspnea and Denies wheezing Gastrointestinal: Gastrointestinal: Denies abdominal pain, Denies nausea and Denies hematemesis Genitourinary: Genitourinary: Denies hematuria, Reports urinary incontinence and Reports other (Urinary incontinence) Musculoskeletal: Musculoskeletal: Denies no additional musculoskeletal complaints and Reports numbness (Has peripheral neuropathy) Integumentary/Breasts: Skin/Breast: Denies rash and Denies unusual bruising Neurologic: Reports numbness (Has peripheral neuropathy) and Reports weakness Psychiatric: Psychiatric: Reports depression Endocrine: Endocrine: Reports fatigue and Denies palpitations Hematologic/Lymphatic: Hematologic/Lymphatic: Reports easy bleeding Allergic/Immunologic: Allergic/Immunologic: Denies wheezing Exam Narrative: Exam Narrative: Thin older lady who appears frail., no distress. Const: General: no acute distress Orientation/consciousness: oriented to person HENMT: Mouth: Yes moist mucous membranes Eyes: Conjunctivae: conjunctival abnormality bilateral pallor EOM: EOMs intact bilaterally Neck: Neck: supple Resp: Effort & Inspection: normal respiratory effort and able to speak in complete sentences Auscultation: diminished lung sounds on the right in the lower lung ann Cardio: Rhythm: regular rhythm (Occasional premature beat)
[2019-04-21] MEDS: SERTRALINE HCL 50 MG TABLET 100 MG PO (10:38)
[2019-04-21] MEDS: THERAPEUTIC MULTIVITAMINS/MINERALS TAB (*BKC) 1 TABLET PO (10:38)
[2019-04-21] MEDS: calcium polycarbophiL 625 MG TABLET PO (10:39)
[2019-04-21] MEDS: lisinopriL 20 MG TABLET PO (10:39)
[2019-04-21] MEDS: POTASSIUM CHLORIDE 20 MEQ TABLET.ER PO (10:41)
[2019-04-21] MEDS: FUROSEMIDE 20 MG TABLET PO (10:42)
[2019-04-21] MEDS: CLOPIDOGREL BISULFATE 75 MG TABLET PO (10:42)
[2019-04-21] MEDS: METOPROLOL TARTRATE 50 MG TAB PO (10:42)
[2019-04-21] MEDS: CYANOCOBALAMIN 1,000 MCG TABLET 1000 MCG PO (10:43)
[2019-04-21] MEDS: TRAMADOL HCL 50 MG TABLET PO (10:50)
[2019-04-21] MEDS: hydroCHLOROthiazide 12.5 MG CAPSULE PO (11:10)
[2019-04-21 11:25] LABS: IFOB Positive Control Positive; Immunochemical Fecal Occult Bl Positive (N)
--- NOTE | 2019-04-21 12:02 | PM.DS ---
DS: Diagnosis Admitting Diagnosis Admitting Diagnosis: Weakness Discharge Diagnosis (1) Generalized weakness: Code(s): R53.1 - Weakness Status: Acute Assessment and Plan: 04/20/19 16:24 Patient 83-year-old female a resident of senior living with history of neuropathy in lower extremity as well as history of several TIA patient normally uses a walker to get around the senior living, while at the dining table patient was found slumped over and was brought to the emergency department for further evaluation, and time patient denies any chest pain shortness of breath palpitation fever or chills, to further evaluate patient had a CT scan of the head and MRI of the brain which are essentially normal without any acute injury, also had carotid ultrasound did not show any significant stenosis and cardiac echo was essentially normal, however today patient developed atrial fibrillation with RVR it was new onset for the patient patient was started on diltiazem drip was transferred to IMU while on the drip patient converted to sinus rhythm patient is seen by grain shipper, stop amlodipine and place the patient on metoprolol prevent recurrent atrial fibrillation, patient has had several falls and is a concern of anemia grain shipper recommending to hold anticoagulation for now the patient does require anticoagulation as her Chadscore is 7, will continue to monitor have PT OT evaluate the patient, today patient's hemoglobin is 6.6 patient denies any abdominal pain nausea or vomiting or any source of bleeding she did have normal bowel movement 04/16, patient was given 1 unit of pack RBC, today patient hemoglobin is stable, patient is seen by grain shipper metoprolol was increased 50 mg b.i.d. to better control heart rate and blood pressure, patient denies any chest pain shortness of breath palpitation fever or chills see denies any bleeding, but of being weak and tired, patient is unable to participate in physical therapy and recommending the patient will benefit from going to rehab possibly [facility] or SNF. (2) Anemia: Code(s): D64.9 - Anemia, unspecified Status: Acute Assessment and Plan: Patient has anemia has worsened it is typically around 10 with her hemoglobin but is down to 7 today. Will check and I fob in due to anemia profile. There is no obvious source of bleeding possibly hemodilution will continue to monitor (3) Neuropathy: Code(s): G62.9 - Polyneuropathy, unspecified Status: Chronic Assessment and Plan: Patient stated that she needs her repaired overall to sleep. (4) Multifocal PVCs: Code(s): I49.3 - Ventricular premature depolarization Status: Acute Assessment and Plan: Patient potassium is low, magnesium is normal, will supplement potassium and monitor (5) PAC (premature atrial contraction): Code(s): I49.1 - Atrial premature depolarization Status: Acute Assessment and Plan: Recheck electrolytes in the morning. (6) Hypokalemia: Code(s): E87.6 - Hypokalemia Status: Acute Assessment and Plan: I did give her supplemental today. Could be related to her hydrochlorothiazide. She takes a multivitamin but may need to be a potassium daily. (7) Anxiety: Code(s): F41.9 - Anxiety disorder, unspecified Status: Chronic Assessment and Plan: Continue with her Ativan (8) Depression: Code(s): F32.9 - Major depressive disorder, single episode, unspecified Status: Chronic Assessment and Plan: Continue with Zoloft. (9) Hypertension: Code(s): I10 - Essential (primary) hypertension Status: Chronic Assessment and Plan: Continue with lisinopril but may possibly need to hold her hydrochlorothiazide. I did give her potassium supplement. Continue with Norvasc. (10) TIA (transient ischemic attack): Code(s): G45.9 - Transient cerebral ischemic attack, unspecified Status: Chronic As
[2019-04-21] MEDS: BUDESONIDE RESPULE NEB 0.5 MG/2 ML AMP INHALATION (14:06)
--- NOTE | 2019-04-21 21:51 | PC.NURSE ---
1545 This nurse left a message on voicemail of daughter Lachelle to call regarding message to call her and to ask about discharge mode of transfer. Lachelle called back, will come get the patient. 1630 Called report to Hans at [facility], noted stool occult positive, will call back after doctor notified. Notified Dr. Estrella that stool for occult blood was positive, he wants to cancel discharge and request GI consult. Nurse Car Repossessor spoke with Dr. Estrella regarding stool occult results and he decided to discharge patient to [facility] now and have her follow-up with PCP in one week. 1655 Hans notified that requesting patient to follow-up with PCP in one week regarding positive stool occult. 1655 Patient discharged to [facility] with family member in wheelchair and PCT to POV. Nurse Car Repossessor discontinued saline lock. Patient left with discharge paperwork and personal affects, awake, alert, and oriented times 1-2, cues, no complaints, vital signs stable, seems to recognize family.
== END 2019-04-21 16:50 | DRG 308 ==
LOC: ANHED 13:00 → ANH2MED 17:16 → ANHIMU 04-15 13:10 → ANH3MEDSUR 04-21 12:02 → ANHIMU 04-24 14:00
PROVIDERS: Internal Medicine Cardiovascular Disease; Nurse Practitioner; Nurse Practitioner Adult Health; Admitting Provider Internal Medicine; Emergency Provider Emergency Medicine; PCP Family Medicine; Visit Provider Family Medicine
DX: I48.0 Paroxysmal atrial fibrillation (principal); I50.33 Acute on chronic diastolic (congestive) heart failure; I11.0 Hypertensive heart disease with heart failure; D64.9 Anemia, unspecified; R79.89 Other specified abnormal findings of blood chemistry; R53.1 Weakness; G62.9 Polyneuropathy, unspecified; I49.3 Ventricular premature depolarization; I49.1 Atrial premature depolarization; F32.9 Major depressive disorder, single episode, unspecified; F41.9 Anxiety disorder, unspecified; E87.6 Hypokalemia; T50.2X5A Adverse effect of carbonic-anhydrase inhibitors, benzothiadiazides and other diuretics, initial encounter; M81.0 Age-related osteoporosis without current pathological fracture; M19.90 Unspecified osteoarthritis, unspecified site; Z96.653 Presence of artificial knee joint, bilateral; Z86.73 Personal history of transient ischemic attack (TIA), and cerebral infarction without residual deficits; Z90.5 Acquired absence of kidney; Z87.891 Personal history of nicotine dependence; Z85.43 Personal history of malignant neoplasm of ovary; Z79.02 Long term (current) use of antithrombotics/antiplatelets; Z79.82 Long term (current) use of aspirin; Z91.81 History of falling
CPT/HCPCS: 36415; 36430; 51701; 70450; 70553; 71046; 80048; 80053; 81003; 82247; 82274; 82570; 82607; 82728; 82746; 83010; 83540; 83550; 83735; 83880; 84155; 84156; 84165; 84166; 84238; 84439; 84443; 84466; 84480; 84484; 85014; 85018; 85025; 85027; 85046; 85055; 85610; 85730; 86850; 86880; 86900; 86901; 86923; 87081; 93005; 93306; 93880; 94640; 96361; 96365; 96375; 97110; 97116; 97161; 97164; 97165; 97168; 97530; 97535; 99285; A9270; A9577; G0378; J1940; J7040; J7120; P9016

== ENCOUNTER 2019-05-11 17:40 | Inpatient (IN) | payer MEDICARE, SELFPAY ==
--- NOTE | ~2019-05-11 | XR_ITS ---
EXAMINATION: XR chest 2V DATE: 05/14/2019 13:17 INDICATION: Dyspnea. Hemothorax. TECHNIQUE: frontal view of the chest was obtained. COMPARISON: Chest radiograph and CT dated 05/13/2019 FINDINGS: Unchanged airspace opacities in the right mid to lower lung zone and with sharply defined curved clarisse in at the medial right apex. No pneumothorax. Left lung remains clear with no pleural effusion. Cardi ac megaly. Tortuous and atherosclerotic thoracic aorta. S-shaped focal lumbar scoliosis with severe s pondylosis. Right rotator cuff arthropathy and advanced left glenohumeral osteoarthritis. IMPRESSION: 1. Minimal change in opacities at the right hemithorax on CT corresponded to a combination of persist ent subpleural hematomas related to recent posterior right seventh and eighth rib fractures, small ri ght pleural effusion and associated compressive atelectasis. Reviewed, dictated and finalized at location A. IMPRESSION: 1. Minimal change in opacities at the right hemithorax on CT corresponded to a combination of persistent subpleural hematomas related to recent posterior righ t seventh and eighth rib fractures, small right pleural effusion and associated compressive atelectasis.
--- NOTE | ~2019-05-11 | XR_ITS ---
EXAMINATION: XR chest 1V DATE: 05/12/2019 13:48 INDICATION: Right pleural effusion postthoracentesis TECHNIQUE: frontal view of the chest was obtained. COMPARISON: Chest radiograph dated 05/11/2019 FINDINGS: Approved aeration in the right mid and upper lung zones with decrease in size of a now moderate-sized right pleural effusion. Persistent consolidation of the right lower lung most likely compressive ate lectasis. Left lung remains clear. No pneumothorax or left-sided pleural effusion. Tortuous and ather osclerotic thoracic aorta. The visualized portions of the cardiac silhouette appears unremarkable how ever the right heart border is obscured by the adjacent pleural effusion and airspace disease. S-shap ed thoracolumbar scoliosis with severe spondylosis. Advanced osteoarthritis at the left glenohumeral joint. Multiple old right-sided rib fractures. IMPRESSION: 1. No pneumothorax and decreased now moderate sized right pleural effusion post right thoracentesis. 2. Consolidation in the left lower lung which could represent compressive atelectasis with differenti al including underlying pneumonia or ligaments. Reviewed, dictated and finalized at location A. IMPRESSION: 1. No pneumothorax and decreased now moderate sized right pleural effusion post right thoracentesis. 2. Consolidation in the left lower lung which could represent compressive atele ctasis with differential including underlying pneumonia or ligaments.
--- NOTE | ~2019-05-11 | XR_ITS ---
EXAMINATION: XR chest 2V DATE: 05/11/2019 18:26 INDICATION: Shortness of breath TECHNIQUE: AP and lateral views of the chest are obtained. COMPARISON: 04/15/2019 FINDINGS: There is a large right pleural effusion. Cardiomegaly is noted. There are airspace opacitie s in the right lung. Minimal airspace opacities are seen in the left lung base. Thoracolumbar levosco liosis is noted. There is no pneumothorax. Advanced osteoarthritis is noted in the left glenohumeral joint. There are multiple healed right rib fractures in addition to old displaced fractures of the ri ght sixth and seventh ribs. IMPRESSION: 1. Large right pleural effusion with airspace opacities of the right lung, likely atelectasis. 2. Cardiomegaly. Reviewed, dictated and finalized at location A. IMPRESSION: 1. Large right pleural effusion with airspace opacities of the right lung, like ly atelectasis. 2. Cardiomegaly.
--- NOTE | ~2019-05-11 | US_ITS ---
EXAMINATION: US thoracentesis DATE: 05/12/2019 13:16 INDICATION: Right pleural effusion TECHNIQUE: The procedure and its risks and benefits were discussed with the patient. Potential risks discussed included bleeding, infection, and pneumothorax. The patient understood the risks and agreed to proceed. The skin was prepped and draped in sterile fashion. 1% lidocaine was used for local anes thesia. Under ultrasound guidance, a 5 Fr catheter with trochar was advanced into the large right ple ural effusion. Fluid was aspirated. The catheter was removed, and a dressing was applied. There were no immediate complications. FINDINGS: Ultrasound images demonstrate a large right pleural effusion and the catheter within the right pleura l effusion. Along the posterior right chest wall there is a separate approximately 6 x 2 cm lenticula r subpleural fluid collection which given the history of recent fall suggests this could represents a posttraumatic hematoma. IMPRESSION: 1. Successful ultrasound-guided thoracentesis yielding 1000 mL of dark reddish fluid. Line 2. Separate at least 6 x 2 cm lenticular subpleural fluid collection suspicious for chest wall hemato ma in the history of recent fall and the presence of significant bruising along the right flank. Reviewed, dictated and finalized at location A. IMPRESSION: 1. Successful ultrasound-guided thoracentesis yielding 1000 mL of dark reddish fluid. Line 2. Separate at least 6 x 2 cm lenticular subpleural fluid collection suspicious for chest wall hematoma in the history of recent fall and the presence of sign ificant bruising along the right flank.
--- NOTE | ~2019-05-11 | XR_ITS ---
XR chest 2V DATE: 05/13/2019 07:46 INDICATION: Hemothorax TECHNIQUE: AP and lateral views COMPARISON: Serial chest radiograph from 05/12/2019 portable AP chest to 10/09/2018 portable AP chest FINDINGS: There is opacification of the right apex, a new finding compared to 10/09/2018. Right apical mass lesion is not excluded. CT thorax with IV contrast material is recommended for further evaluati on. Multiple chronic right rib deformities are again noted, likely related to prior thoracotomy. There is volume loss of the right lung, likely due to partial right pneumonectomy. There is increased density in the right mid and particularly lower lung zones consistent with lung infiltrate, atelectasis and/ or right pleural effusion. The left lung is hyperinflated but clear of infiltrate or consolidation. N o pleural effusion or pulmonary vascular congestion or pneumothorax is evident. Cardiomegaly. Aortic calcification, ectasia and tortuosity. Diffuse osteopenia. Severe osteoarthritic change and deformity at left glenohumeral joint. Prominent S-shaped scoliosis and degenerative changes of the thoracolumbar spine. IMPRESSION: Prominent opacification the right apex, new since 10/09/2018; recommend CT thorax with IV contrast material for further evaluation, in order to exclude any possible mass lesion/malignancy Status post right thoracotomy, presumed right partial lung resection Infiltrate, atelectasis and/or effusion in the right mid and lower chest Reviewed, dictated and finalized at location B. IMPRESSION: Prominent opacification the right apex, new since 10/09/2018; recomm end CT thorax with IV contrast material for further evaluation, in order to exc lude any possible mass lesion/malignancy Status post right thoracotomy, presumed right partial lung resection Infiltrate, atelectasis and/or effusion in the right mid and lower chest
--- NOTE | ~2019-05-11 | CT_ITS ---
EXAMINATION: CT chest w con DATE: 05/13/2019 22:08 INDICATION: Abnormal chest radiograph TECHNIQUE: Transaxial computed tomographic images of the chest were obtained after the administration of 75 cc of Omnipaque 350 intravenous contrast. The dose-length product (DLP) was 132.14 mGy-cm. Ite rative reconstruction was used. COMPARISON: None FINDINGS: There is a 7.3 x 4.7 cm heterogeneous lenticular density in the posterior pleural space of the right lung apex accounting for the chest radiographic finding in question. Similarly there is a 6 .4 x 2.9 cm heterogeneous lenticular density in the posterolateral aspect of the pleural space inferi bbii. This was seen on ultrasound at the time of thoracentesis performed yesterday. There is a small right pleural effusion. There are minimal airspace opacities in the right lung. Also seen is passive atelectasis of the right lung caused by pleural effusion and pleural space densities. There is no pne umothorax. There is a 1.6 cm nodule of the right thyroid. Cardiomegaly is noted. There is calcified a therosclerosis of the coronary arteries and aorta. There are no pathologically enlarged thoracic lymp h nodes. There is severe thoracic spondylosis. There is S-shaped curvature of the spine. There are multiple chronic right-sided rib fractures with nonunion. However, there appear to be relat ively acute fractures of the posterior medial aspects of the right seventh and eighth ribs which are adjacent to the pleural space densities in the right lung apex and inferior pleural space, respective ly. IMPRESSION: 1. Heterogeneous lenticular densities in the right pleural space with adjacent rib fractures suggesti ve of traumatic loculated hemothorax. One projecting in the right lung apex accounts for the chest ra diographic finding in question. 2. Airspace opacities of the right lung, consistent with atelectasis and pneumonia. Reviewed, dictated and finalized at location A. IMPRESSION: 1. Heterogeneous lenticular densities in the right pleural space with adjacent rib fractures suggestive of traumatic loculated hemothorax. One projecting in t he right lung apex accounts for the chest radiographic finding in question. 2. Airspace opacities of the right lung, consistent with atelectasis and pneumo [place].
[2019-05-11 17:38] VITALS: BP 175/102; PULSE 87; RESP 24; TEMP 36.7; O2SAT 95
--- NOTE | 2019-05-11 17:51 | ECG_ITS ---
Measurements Intervals [place] Rate: 80 P: 22 [place]: 147 QRS: -21 QRSD: 79 T: -66 QT: 389 QTc: 450 Interpretive Statements SINUS RHYTHM ATRIAL PREMATURE COMPLEX ANTEROSEPTAL INFARCT, PROBABLY RECENT BASELINE ARTIFACT- I, II, AVR, AVL, AVF, V5 ABNORMAL ECG Electronically Signed On 05-12-2019 7:01:28 CDT by Ricardo Childers D.O.
[2019-05-11 18:00] VITALS: BP 166/99; PULSE 73; RESP 24; O2SAT 93
[2019-05-11 18:12] LABS: Alveolar/Arterial O2 Gradient 76.6 mmHg; Base Excess ABG 1.2 mEq/l (+/-2.0); Carboxyhemoglobin 0.5 % THb (0-2.0); Device NASAL CANNULA; Fractional Inspired Oxygen 28 %; Methemoglobin ABG 0.3 %THb (0-1.5); Oxygen Content ABG 16.9 %vol (16.0-22.0); Oxygen Saturation ABG 95.1 % (95.0-100.0); Oxyhemoglobin 93.9 % THb (90.0-100.0); PCO2 ABG 41.5 mmHg (35.0-45.0); PO2 ABG 74.1 mmHg (80.0-100.0); PO2 FiO2 Ratio Arterial Blood 2.65 %; Reduced Hemoglobin 5.3 %THb (0-5.0); Site Drawn RIGHT BRACHIAL; Total Hemoglobin 12.8 g/dL (12.0-18.0); pH ABG 7.414 (7.350-7.450)
[2019-05-11 18:23] LABS: Basophils Percent Auto 0.5 % (0.2-1.2); Eosinophils Absolute Auto 0.2 K/mm3 (0-0.3); Eosinophils Percent Auto 2.5 % (0-4.4); Hematocrit 38.6 % (37.0-47.0); Hemoglobin 12.1 g/dL (12.0-15.0); Immature Granulocyte Absolute 0.03 K/mm3 (0.00-0.031); Immature Granulocyte Percent A 0.5 % (0-0.5); Lymphocytes Absolute Auto 0.81 K/mm3 (0.9-3.2); Lymphocytes Percent Auto 13.2 % (18.3-44.2); Mean Corpuscular HGB Conc 31.3 g/dl (32-36); Mean Corpuscular Hemoglobin 27.7 pg (26-34); Mean Corpuscular Volume 88.3 fl (80-100); Mean Platelet Volume 11.1 fl (7.4-10.4); Monocytes Absolute Auto 0.2 K/mm3 (0.1-0.6); Monocytes Percent Auto 3.9 % (2.6-8.5); Neutrophils Absolute Auto 4.9 K/mm3 (1.3-6.7); Neutrophils Percent Auto 79.4 % (45.5-73.1); Platelet Count Result 230 k/mm3 (150-375); Red Blood Count 4.37 M/mm3 (4.2-5.4); Red Cell Distribution Width 14.5 % (11.5-14.5); White Blood Count 6.1 K/mm3 (4.5-10.0)
[2019-05-11 18:30] VITALS: BP 163/96; PULSE 72; RESP 24; O2SAT 100
[2019-05-11 18:34] LABS: Blood Urea Nitrogen 21 mg/dL (7-17); Carbon Dioxide 30 mmol/L (22-30); Chloride 104 mmol/L (98-107); Estimated CRCL calculation 43 ml/min; Estimated Glomerular Filt Rate > 60; Glucose 103 mg/dL (65-105); Sodium 138 mmol/L (137-145)
--- NOTE | 2019-05-11 18:35 | ED.SOB ---
HPI - SOB/Dyspnea General Chief Complaint: Shortness of Breath/Dyspnea Stated Complaint: sob Time Seen by Provider: 05/11/19 18:34 Source: patient Mode of arrival: EMS Limitations: no limitations History of Present Illness HPI Narrative: An 83 y/o female presents to the ED, via EMS from [facility], with c/o severe SOB. Pt states that the SOB started today and has been constant since. She reports generalized weakness, CP, poor appetite, and raspy voice, but denies fever, chills, and rhinorrhea. Her family notes that the raspy voice started 1 week ago. Pt states that the CP started 5 weeks ago. She is currently taking Tamiflu as a precaution since other residents at [facility] have Influenza. Pt takes Aspirin 81 mg and Plavix daily. MD elicited complaint: shortness of breath Onset (ago): hour(s) (Today) Timing: constant Severity: severe Associated symptoms: chest pain and other (Generalized weakness, raspy voice, poor appetite) Related Data Home Medications Medication Instructions Recorded Confirmed One-A-Day Womens Formula 1 tablet PO DAILY 04/13/19 05/11/19 aspirin 81 mg PO DAILY 04/13/19 05/11/19 calcium polycarbophil [FiberCon] 625 mg PO BID 04/13/19 05/11/19 cyanocobalamin (vitamin B-12) 1,000 mcg PO DAILY 04/13/19 05/11/19 [Vitamin B-12] sertraline 100 mg PO BID 04/13/19 05/11/19 oseltamivir 75 mg capsule 75 mg PO DAILY 05/06/19 05/11/19 lisinopril 20 mg PO DAILY 05/11/19 05/11/19 Allergies Allergy/AdvReac Type Severity Reaction Status Date / Time Penicillins Allergy Unknown Unknown Verified 05/11/19 18:10 Review of Systems Review of Systems: All systems reviewed & are unremarkable except as noted in HPI and below Constitutional: Constitutional: Denies chills, Denies fever(s), Reports poor appetite and Reports weakness (Generalized) ENT: Denies nasal discharge and Reports other (Raspy voice) Cardiovascular: Cardiovascular: Reports chest pain Respiratory: Respiratory: Reports dyspnea PMFSH Past Medical History Medical History Anxiety Arthritis Atrial fibrillation, new onset Back pain Bakers cyst Colon polyps CVA (cerebral vascular accident) Depression Dysphagia Femur fracture, right Non operative Fractures ankle, foot Hemorrhoids internal History of rectal polyps Hypercalcemia Hypertension Kidney tumor rt partial nephrectomy, patient reports she had a small cancer Leukemia Patient denies Melena Neuropathy Osteoporosis Ovarian cancer rt Ovarian cyst Parathyroid tumor Partial parathyroidectomy Peripheral neuropathy Sleep apnea Intolerant of CPAP TIA (transient ischemic attack) Surgical History Surgical History H/O arthroscopic knee surgery lt H/O local excision of skin lesion lt hand H/O oophorectomy bilateral History of nephrectomy rt partial History of total bilateral knee replacement (TKR) Hx of colonoscopy Family History Family History Mother Hypertension Cerebrovascular accident Father Malignant neoplasm of prostate Family history of coronary artery disease Family history of congestive heart failure Grandparent Diabetes mellitus Other Family history of cardiovascular disease Social History Social History Social History: Patient tells me that she has to be a light smoker 1 pack a cigarettes in a week. She said she used to drink quite heavily but may be drinks occasionally once a month. She has 3 children. Initially she told me her daughter Nicolasa is a power trademark attorney but then tells me that her daughter in law is the 1 to make decisions for her healthcare. The patient stated that she will be a full code and allow her daughter log and to make those decisions. She tells me that she is retired from the [employer]. She is and lives wit
[2019-05-11 19:00] VITALS: BP 157/96; PULSE 70; RESP 22; O2SAT 100
[2019-05-11 19:10] LABS: Alveolar/Arterial O2 Gradient 72.1 mmHg; Base Excess ABG 0.2 mEq/l (+/-2.0); Device NASAL CANNULA; Fractional Inspired Oxygen 28 %; HCO3 ABG 24.6 mEq/l (22.0-26.0); Modified Allen's Test Pass; Oxygen Content ABG 16.3 %vol (16.0-22.0); Oxygen Saturation ABG 96.2 % (95.0-100.0); Oxyhemoglobin 94.7 % THb (90.0-100.0); PCO2 ABG 39.1 mmHg (35.0-45.0); PO2 ABG 81.4 mmHg (80.0-100.0); PO2 FiO2 Ratio Arterial Blood 2.91 %; Site Drawn RIGHT RADIAL; Total Hemoglobin 12.2 g/dL (12.0-18.0); pH ABG 7.417 (7.350-7.450)
[2019-05-11 20:14] LABS: Magnesium 1.8 mg/dL (1.6-2.3)
[2019-05-11 20:26] LABS: Add Urine Microscopic? YES; Appearance Urine Clear (Clear); Bacteria Urine Trace /hpf; Bilirubin Urine Negative (Negative); Blood Urine Negative (Negative); Color Urine Yellow (Yellow); Glucose Urine UA Negative (Negative); Ketones Urine Negative (Negative); Leukocyte Esterase Ur Negative LEU/UL (Negative); Mucus Urine Rare /lpf; Nitrate Urine Negative (Negative); Protein Urine 1+ mg/dL (Negative); RBC Urine 0-2 /hpf (0-2); Specific Grav Ur 1.017 (1.001-1.035); Squamous Epithelial Cell Urine Rare /hpf (Few); Urobilinogen Urine Negative mg/dL (<2.0); WBC Urine 0-3 /hpf
--- NOTE | 2019-05-11 21:28 | PM.IMHP ---
H&P: HPI History of Present Illness Chief complaint: Dyspnea, large right pleural effusion Narrative: This is a pleasant 83 year old female with known HTN, depression, paroxysmal atrial fibrillation who was just recently admitted to our Hospitalist service at the end of last month for generalized weakness and anemia. The patient mentions that she has been very short of breath ever since she was discharged to rehab at [facility] and has been on 2-4 liters of oxygen since then. She is not known to have ever been on oxygen before and her family tells me that no one has been able to give them a good explanation why the patient has needed to be on oxygen. The patient reports that she just recently saw her PCP, Dr. Luna who believed her shortness of breath may have been secondary to her metoprolol dose which he just recently lowered. The patient was not aware that she had a large right sided pleural effusion even when she was last hospitalized. She tells me that she has not had any diagnostic studies to evaluate her right sided pleural effusion. The patient is not on any anticoagulants as she has had significant anemia and is a fall risk. She presented to the hospital [facility] with severe shortness of breath which is worsened by any exertional activities. Tonight she denies any chest pain, palpitations, fever, chills, cough, abdominal pain, nausea, vomiting, dysuria, hematuria, diarrhea or rectal bleeding. She denies any significant peripheral edema. The patient does have a history of renal cancer which she underwent a partial right nephrectomy. [facility] and found to have an interval worsening of her right sided pleural effusion which is now large in size. No other complaints at this time. 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 Leukemia Patient denies Melena Neuropathy Osteoporosis Ovarian cancer rt Ovarian cyst Parathyroid tumor Partial parathyroidectomy Peripheral neuropathy Sleep apnea Intolerant of CPAP TIA (transient ischemic attack) Surgical History Surgical History H/O arthroscopic knee surgery lt H/O local excision of skin lesion lt hand H/O oophorectomy bilateral History of nephrectomy rt partial History of total bilateral knee replacement (TKR) Hx of colonoscopy Family History Family History Mother Hypertension Cerebrovascular accident Father Malignant neoplasm of prostate Family history of coronary artery disease Family history of congestive heart failure Grandparent Diabetes mellitus Other Family history of cardiovascular disease Social History Social History Social History: Patient tells me that she has to be a light smoker 1 pack a cigarettes in a week. She said she used to drink quite heavily but may be drinks occasionally once a month. She has 3 children. Initially she told me her daughter Nicolasa is a power deputy county attorney but then tells me that her daughter in law is the 1 to make decisions for her healthcare. The patient stated that she will be a full code and allow her daughter log and to make those decisions. She tells me that she is retired from the [employer]. She is and lives with her Mitchell. Years smoked: 60 Smoking status: Former smoker Tobacco type:
[2019-05-11] MEDS: FUROSEMIDE INJ 40 MG/4 ML VIAL IV PUSH (21:55)
[2019-05-11 22:01] VITALS: BP 145/80; PULSE 74; RESP 20; TEMP 36.8; O2SAT 99
[2019-05-11 22:08] VITALS: BP 157/85; PULSE 74; RESP 16; TEMP 36.4; O2SAT 95
--- NOTE | 2019-05-11 22:27 | ADMGEN ---
This patient, Shonda Wiggins, was admitted to 2 Medical Room 257-01. Patient/family oriented to hospital policies and general routines including ID bracelet, bed and alarms, visiting hours, pain management, procedures, bathroom and other care routines, personal items, smoking policy, room service/diet, and visiting hours. Valuables list has been completed. Information on how to activate the Rapid Response Team has been discussed. Patient/Family are encouraged to report perceived risks to care and to ask questions if they do not understand what they are told or what they should do.
[2019-05-12] VITALS (11 sets, daily range): BP systolic 139–155; BP diastolic 73–97; PULSE 72–82; RESP 16–24; TEMP 36.2–37.6; O2SAT 90–96; BMI 18.1
--- NOTE | 2019-05-12 00:28 | PC.NURSE ---
pt stated anticoagulant use during admission on the floor, per Dr. Rodriguez H&P pt is not currently on anticoagulation therapy.
[2019-05-12 05:29] LABS: Basophils Percent Auto 0.2 % (0.2-1.2); Eosinophils Absolute Auto 0.1 K/mm3 (0-0.3); Eosinophils Percent Auto 2.5 % (0-4.4); Hematocrit 37.2 % (37.0-47.0); Hemoglobin 11.6 g/dL (12.0-15.0); Immature Granulocyte Absolute 0.02 K/mm3 (0.00-0.031); Immature Granulocyte Percent A 0.4 % (0-0.5); Lymphocytes Absolute Auto 0.73 K/mm3 (0.9-3.2); Lymphocytes Percent Auto 12.9 % (18.3-44.2); Mean Corpuscular HGB Conc 31.2 g/dl (32-36); Mean Corpuscular Hemoglobin 27.7 pg (26-34); Mean Corpuscular Volume 88.8 fl (80-100); Mean Platelet Volume 11.4 fl (7.4-10.4); Monocytes Absolute Auto 0.3 K/mm3 (0.1-0.6); Monocytes Percent Auto 5.6 % (2.6-8.5); Neutrophils Absolute Auto 4.5 K/mm3 (1.3-6.7); Neutrophils Percent Auto 78.4 % (45.5-73.1); Platelet Count Result 196 k/mm3 (150-375); Red Blood Count 4.19 M/mm3 (4.2-5.4); Red Cell Distribution Width 14.5 % (11.5-14.5); White Blood Count 5.7 K/mm3 (4.5-10.0)
[2019-05-12 05:32] LABS: Alanine Aminotransferase 176 U/L (4-35); Albumin Level 3.3 g/dL (3.5-5.1); Alkaline Phosphatase 118 U/L (38-126); Aspartate Amino Transferase 91 U/L (14-36); Bilirubin,Total 0.6 mg/dL (0.2-1.3); Blood Urea Nitrogen 20 mg/dL (7-17); Calcium 9.7 mg/dL (8.4-10.2); Carbon Dioxide 32 mmol/L (22-30); Chloride 103 mmol/L (98-107); Estimated CRCL calculation 42 ml/min; Estimated Glomerular Filt Rate > 60; Glucose 85 mg/dL (65-105); Potassium 3.5 mmol/L (3.4-5.0); Sodium 137 mmol/L (137-145)
[2019-05-12 05:33] LABS: Cholesterol 138 mg/dL (0-200)
[2019-05-12 05:39] LABS: Albumin Level 3.3 g/dL (3.5-5.1); Amylase 36 U/L (30-110); Bilirubin,Total 0.6 mg/dL (0.2-1.3); Lactate Dehydrogenase 695 U/L (313-618)
[2019-05-12 08:46] LABS: Mean Platelet Volume 11.1 fl (7.4-10.4); Platelet Count Result 220 k/mm3 (150-375)
[2019-05-12 08:54] LABS: Partial Thromboplastin Time 30.2 SECONDS (22.3-36.8); Prothrombin Time 12.8 Seconds (11.1-14.7)
[2019-05-12] MEDS: calcium polycarbophiL 625 MG TABLET PO ×2 (09:13→17:18)
[2019-05-12] MEDS: POTASSIUM CHLORIDE 20 MEQ TABLET.ER PO ×2 (09:13→17:18)
[2019-05-12] MEDS: CYANOCOBALAMIN 1,000 MCG TABLET 1000 MCG PO (09:14)
[2019-05-12] MEDS: lisinopriL 20 MG TABLET PO (09:14)
[2019-05-12] MEDS: TRAMADOL HCL 50 MG TABLET PO ×2 (09:14→17:18)
[2019-05-12] MEDS: SERTRALINE HCL 50 MG TABLET 100 MG PO ×2 (09:14→17:18)
[2019-05-12] MEDS: hydroCHLOROthiazide 12.5 MG CAPSULE PO (09:14)
[2019-05-12] MEDS: THERAPEUTIC MULTIVITAMINS/MINERALS TAB (*BKC) 1 TABLET PO (09:14)
[2019-05-12] MEDS: METOPROLOL TARTRATE 50 MG TAB 25 MG PO ×2 (09:16→20:06)
--- NOTE | 2019-05-12 12:22 | PC.NURSE ---
Patient to ultrasound for Thoracentesis per stretcher with IV saline locked.
[2019-05-12 13:12] LABS: pH Pleural Fluid 7.439 (7.210-7.500)
[2019-05-12 14:14] LABS: Appearance Pleural Fluid Cloudy (Clear); Color Pleural Fluid Red (Colorless); Pleural fluid source Pleural fluid
[2019-05-12 14:15] LABS: Lymphocytes Pleural Fluid 31 %; Macrophages Pleural Fluid 2 %; Mesothelial Cells Pleural Flui 5 %; Monocytes Pleural Fluid 6 %; Neutrophils Pleural Fluid 56 % (0-25); Nucleated Cell Pleural Fluid 400 /uL (0-1000)
--- NOTE | 2019-05-12 16:07 | PM.IMPN ---
Progress Note: A&P Assessment and Plan (1) Pleural effusion, right: Code(s): J90 - Pleural effusion, not elsewhere classified Status: Acute Assessment and Plan: Suspect exudative with elevated WBC + RBCs. Additional pleural fluid analysis including pleural pH and LDH pending. Diagnostic thoracentesis yielded 1000 ml of dark red fluid. pH is 7.439. Pleural RBC 43,119. Pleural neutrophils slightly elevated at 56. Pleural gram stain with moderate WBC and no organisms identified. Pt is afebrile without leukocytosis. I suspect possible traumatic hemothorax after her fall 04/12 as the effusion was present on CXR 04/15/19. She was notably anemic after the fall 04/13/19 with Hb 8.1 and had new onset oxygen requirement with progressively worsened to 4L NC. Hb at presentation to the ED 05/11/19 was 12.1 so ongoing blood loss is not suspected. She had significant improvement following thoracentesis and is now on room air without dyspnea. Hold plavix and ASA for now CXR tomorrow AM. Additional pleural fluid analysis and micro are pending. Trend WBC count, monitor for sx of acute infection Oxygen supplementation PRN and pulse oximetry (2) Chest wall hematoma: Code(s): S20.219A - Contusion of unspecified front wall of thorax, initial encounter Status: Acute Assessment and Plan: Pt reports significant bruising to the right flank after her fall which has improved. There is ecchymosis and palpable subcutaneous nodule present on physical exam. US thoracentesis with 6x2cm subpleural fluid collection. Continue to monitor (3) Paroxysmal atrial fibrillation: Code(s): I48.0 - Paroxysmal atrial fibrillation Status: Chronic Assessment and Plan: Chronic. Continue metoprolol (4) Anemia: Qualifiers: Anemia type: unspecified type Qualified Code(s): D64.9 - Anemia, unspecified Code(s): D64.9 - Anemia, unspecified Status: Chronic Assessment and Plan: Pt with hx of anemia at last admission. Appears stable at this time. Hb 12.1 and Hct 38.6 at admission. No evidence of ongoing blood loss. Will continue to monitor H & H (5) Generalized weakness: Code(s): R53.1 - Weakness Status: Chronic Assessment and Plan: Pt reports chronic weakness. Pt would benefit from PT/OT during this admission (6) TIA (transient ischemic attack): Code(s): G45.9 - Transient cerebral ischemic attack, unspecified Status: Chronic Assessment and Plan: Pt with hx of TIAs. She is on plavix and ASA prior to admission. Hold plavix and ASA for now, resume once clinically appropriate (7) Hypertension: Qualifiers: Hypertension type: unspecified Qualified Code(s): I10 - Essential (primary) hypertension Code(s): I10 - Essential (primary) hypertension Status: Chronic Assessment and Plan: BP reviewed and elevated 140s/70s, suspect this will improve following therapeutic thoracentesis. Continue lisinopril and metoprolol Will continue to monitor (8) Anxiety: Code(s): F41.9 - Anxiety disorder, unspecified Status: Chronic Assessment and Plan: Continue lorazepam (9) Transaminitis: Code(s): R74.0 - Nonspecific elevation of levels of transaminase and lactic acid dehydrogenase [LDH] Status: Acute Assessment and Plan: AST 91 and ALT 176. ALP 118. LDH 695. Etiology unclear. Pt does report drinking hx in the past. Will trend (10) Protein calorie malnutrition: Code(s): E46 - Unspecified protein-calorie malnutrition Status: Acute Assessment and Plan: Total protein 6.0, Albumin 3.3. Will encourage PO intake Consider additional dietary supplements Subjective Date/time seen: 05/12/19 11:30 Interval history: The pt was seen and examined at bedside this AM and felt very SOB. She had no other complaints including no chest pain, palp
[2019-05-12] MEDS: ONDANSETRON INJ 4 MG/2 ML VIAL IV PUSH (20:06)
[2019-05-12] MEDS: LORAZEPAM 0.5 MG TABLET PO (20:14)
[2019-05-13] VITALS (8 sets, daily range): BP systolic 107–126; BP diastolic 55–79; PULSE 61–73; RESP 16–20; TEMP 36.7–37.3; O2SAT 90–98
[2019-05-13 05:10] LABS: Basophils Percent Auto 0.2 % (0.2-1.2); Eosinophils Absolute Auto 0.2 K/mm3 (0-0.3); Eosinophils Percent Auto 2.9 % (0-4.4); Hematocrit 34.8 % (37.0-47.0); Immature Granulocyte Absolute 0.03 K/mm3 (0.00-0.031); Immature Granulocyte Percent A 0.5 % (0-0.5); Lymphocytes Absolute Auto 0.98 K/mm3 (0.9-3.2); Mean Corpuscular HGB Conc 31.6 g/dl (32-36); Mean Corpuscular Hemoglobin 27.7 pg (26-34); Mean Corpuscular Volume 87.7 fl (80-100); Mean Platelet Volume 11.1 fl (7.4-10.4); Monocytes Absolute Auto 0.4 K/mm3 (0.1-0.6); Monocytes Percent Auto 5.5 % (2.6-8.5); Neutrophils Percent Auto 75.9 % (45.5-73.1); Platelet Count Result 208 k/mm3 (150-375); Red Blood Count 3.97 M/mm3 (4.2-5.4); Red Cell Distribution Width 14.5 % (11.5-14.5); White Blood Count 6.5 K/mm3 (4.5-10.0)
[2019-05-13 05:21] LABS: INR 1.1; Prothrombin Time 13.8 Seconds (11.1-14.7)
[2019-05-13 05:22] LABS: Partial Thromboplastin Time 34.7 SECONDS (22.3-36.8)
[2019-05-13 05:29] LABS: Alanine Aminotransferase 106 U/L (4-35); Albumin Level 2.9 g/dL (3.5-5.1); Alkaline Phosphatase 96 U/L (38-126); Aspartate Amino Transferase 51 U/L (14-36); Bilirubin,Total 0.4 mg/dL (0.2-1.3); Blood Urea Nitrogen 24 mg/dL (7-17); Calcium 9.4 mg/dL (8.4-10.2); Carbon Dioxide 35 mmol/L (22-30); Chloride 103 mmol/L (98-107); Estimated CRCL calculation 33 ml/min; Estimated Glomerular Filt Rate 60; Glucose 87 mg/dL (65-105); Potassium 3.9 mmol/L (3.4-5.0); Sodium 137 mmol/L (137-145)
[2019-05-13] MEDS: hydroCHLOROthiazide 12.5 MG CAPSULE PO (08:19)
[2019-05-13] MEDS: METOPROLOL TARTRATE 50 MG TAB 25 MG PO ×2 (08:19→22:12)
[2019-05-13] MEDS: POTASSIUM CHLORIDE 20 MEQ TABLET.ER PO ×2 (08:19→18:06)
[2019-05-13] MEDS: THERAPEUTIC MULTIVITAMINS/MINERALS TAB (*BKC) 1 TABLET PO (08:19)
[2019-05-13] MEDS: calcium polycarbophiL 625 MG TABLET PO ×2 (08:19→18:06)
[2019-05-13] MEDS: TRAMADOL HCL 50 MG TABLET PO ×2 (08:21→18:15)
[2019-05-13] MEDS: lisinopriL 20 MG TABLET PO (08:21)
[2019-05-13] MEDS: SERTRALINE HCL 50 MG TABLET 100 MG PO ×2 (08:21→18:06)
[2019-05-13] MEDS: CYANOCOBALAMIN 1,000 MCG TABLET 1000 MCG PO (08:21)
--- NOTE | 2019-05-13 15:02 | PM.IMPN ---
Progress Note: A&P Assessment and Plan (1) Pleural effusion, right: Code(s): J90 - Pleural effusion, not elsewhere classified <Ciara Jones PA-C - Last Filed: 05/13/19 15:55> Status: Acute <Ciara Jones PA-C - Last Filed: 05/13/19 15:55> Assessment and Plan: Patient underwent diagnostic/therapeutic right thoracentesis on 05/12/19 due to SOB, which yielded 1000 ml of dark red fluid. Pleural pH normal at 7.439, [place] [address] with elevated neutrophils at 56. Additional cytology studies pending. Pleural fluid gram stain with no organisms seen. Preliminary anaerobic culture with WBC and no organisms seen. Aerobic culture and acid fast bacilli pending. Will await pleural pH and LDH to determine if exudative effusion. Effusion may be attributed to hemothorax after previous fall on 04/12 as evidence of effusion exists on 04/15/19 CXR. Additionally, based on CXR findings from 05/13/19, right apical opacification noted and malignancy cannot be ruled out. Therefore, malignant pleural effusion must be considered. Patients SOB has improved significantly following thoracentesis. Tolerating room air without dyspnea. WBC within normal limits at 6.5 and patient is afebrile, infectious etiology is unlikely but will be monitored. - Based on CXR finding, will order contrast enhanced CT thorax to evaluate right apical mass. Patient reports no prior adverse reaction to contrast media and eGFR is 60. - Await further results of pleural fluid analysis - Continue to monitor WBC and vitals. - Continue room air O2 and monitor oxygen saturation, may resume O2 supplementation if spO2 <90% or patient becomes SOB. <Ciara Jones PA-C - Last Filed: 05/13/19 15:55> (2) Chest wall hematoma: Code(s): S20.219A - Contusion of unspecified front wall of thorax, initial encounter <Ciara Jones PA-C - Last Filed: 05/13/19 15:55> Status: Acute <Ciara Jones PA-C - Last Filed: 05/13/19 15:55> Assessment and Plan: Pt reports significant bruising to the right flank after her fall which has improved. I did not note significant ecchymoses or chest wall deformity on my exam. US guided thoracentesis revealed 6x2cm subpleural fluid collection. - Will continue to monitor chest wall <Ciara Suzanna Jones, PA-C - Last Filed: 05/13/19 15:55> (3) Paroxysmal atrial fibrillation: Code(s): I48.0 - Paroxysmal atrial fibrillation <Ciara J. Robert, PA-C - Last Filed: 05/13/19 15:55> Status: Chronic <Ciara J. Stimac, PA-C - Last Filed: 05/13/19 15:55> Assessment and Plan: Chronic. Heart rate stable today at 66 and rhythm regular on auscultation. - Will continue home dose metoprolol. - Hold home dose Plavix due to risk of hemothorax/bleeding from chest wall <Ciara JHomero Jones, PA-C - Last Filed: 05/13/19 15:55> (4) Anemia: Qualifiers: Anemia type: unspecified type Qualified Code(s): D64.9 - Anemia, unspecified <Ciara J. Stimac, PA-C - Last Filed: 05/13/19 15:55> Code(s): D64.9 - Anemia, unspecified <Ciara J. Stimac, PA-C - Last Filed: 05/13/19 15:55> Status: Chronic <Ciara J. Stimac, PA-C - Last Filed: 05/13/19 15:55> Assessment and Plan: Pt with hx of anemia at last admission. Appears stable at this time. Hb 11.0 and Hct 34.8 today. Patient is asymtomatic, has no evidence of active bleeding, and vitals are stable. - Continue to monitor CBC and transfuse prn. <Ciara J. Robert, PA-C - Last Filed: 05/13/19 15:55> (5) Generalized weakness: Code(s): R53.1 - Weakness <Ciara J. Robert, PA-C - Last Filed: 05/13/19 15:55> Status: Chronic <Ciara J. Stimac, PA-C - Last Filed: 05/13/19 15:55> Assessment and Plan: Pt reports chronic weakness. - Continue PT and OT eval/treatment with recommendations appreciated. <Ciara J. Stimac, PA-C
[2019-05-13 21:42] LABS: Albumin Pleural Fluid 2.4 g/dL
[2019-05-13] MEDS: LORAZEPAM 0.5 MG TABLET PO (22:12)
[2019-05-13] MEDS: polyethylene glycoL 3350 17 GM POWD.PACK PO (22:12)
[2019-05-14] VITALS (7 sets, daily range): BP systolic 126–153; BP diastolic 56–77; PULSE 60–97; RESP 16–18; TEMP 36.1–36.9; O2SAT 91–98
[2019-05-14 02:59] LABS: Amylase, Pleural Fluid 26 U/L
[2019-05-14 05:17] LABS: Basophils Percent Auto 0.1 % (0.2-1.2); Eosinophils Absolute Auto 0.3 K/mm3 (0-0.3); Eosinophils Percent Auto 4.3 % (0-4.4); Hematocrit 35.6 % (37.0-47.0); Hemoglobin 11.4 g/dL (12.0-15.0); Immature Granulocyte Absolute 0.02 K/mm3 (0.00-0.031); Immature Granulocyte Percent A 0.3 % (0-0.5); Lymphocytes Absolute Auto 0.99 K/mm3 (0.9-3.2); Lymphocytes Percent Auto 14.6 % (18.3-44.2); Mean Corpuscular Hemoglobin 27.9 pg (26-34); Mean Platelet Volume 10.9 fl (7.4-10.4); Monocytes Absolute Auto 0.3 K/mm3 (0.1-0.6); Monocytes Percent Auto 4.3 % (2.6-8.5); Neutrophils Absolute Auto 5.2 K/mm3 (1.3-6.7); Neutrophils Percent Auto 76.4 % (45.5-73.1); Platelet Count Result 192 k/mm3 (150-375); Red Blood Count 4.09 M/mm3 (4.2-5.4); Red Cell Distribution Width 14.5 % (11.5-14.5); White Blood Count 6.8 K/mm3 (4.5-10.0)
[2019-05-14 05:42] LABS: Glucose Pleural Fluid 88 mg/dL; LDH Pleural Fluid 255 U/L; Total Protein Pleural Fluid 3.6 g/dL
[2019-05-14 06:22] LABS: Alanine Aminotransferase 77 U/L (4-35); Albumin Level 2.9 g/dL (3.5-5.1); Alkaline Phosphatase 93 U/L (38-126); Aspartate Amino Transferase 34 U/L (14-36); Bilirubin Indirect 0.3 mg/dL (0-1.1); Bilirubin,Total 0.3 mg/dL (0.2-1.3); Blood Urea Nitrogen 24 mg/dL (7-17); Calcium 9.4 mg/dL (8.4-10.2); Carbon Dioxide 32 mmol/L (22-30); Chloride 102 mmol/L (98-107); Estimated CRCL calculation 42 ml/min; Estimated Glomerular Filt Rate > 60; Glucose 95 mg/dL (65-105); Potassium 3.8 mmol/L (3.4-5.0); Sodium 134 mmol/L (137-145)
[2019-05-14] MEDS: TRAMADOL HCL 50 MG TABLET PO ×2 (08:16→18:21)
[2019-05-14] MEDS: SERTRALINE HCL 50 MG TABLET 100 MG PO ×2 (08:16→18:21)
[2019-05-14] MEDS: CYANOCOBALAMIN 1,000 MCG TABLET 1000 MCG PO (08:16)
[2019-05-14] MEDS: POTASSIUM CHLORIDE 20 MEQ TABLET.ER PO ×2 (08:16→18:21)
[2019-05-14] MEDS: THERAPEUTIC MULTIVITAMINS/MINERALS TAB (*BKC) 1 TABLET PO (08:16)
[2019-05-14] MEDS: hydroCHLOROthiazide 12.5 MG CAPSULE PO (08:16)
[2019-05-14] MEDS: lisinopriL 20 MG TABLET PO (08:16)
[2019-05-14] MEDS: calcium polycarbophiL 625 MG TABLET PO ×2 (08:16→18:21)
[2019-05-14] MEDS: METOPROLOL TARTRATE 50 MG TAB 25 MG PO ×2 (08:17→20:41)
[2019-05-14 09:02] LABS: Lactate Dehydrogenase 647 U/L (313-618)
--- NOTE | 2019-05-14 11:03 | PM.IMPN ---
Progress Note: A&P Assessment and Plan (1) Pleural effusion, right: Code(s): J90 - Pleural effusion, not elsewhere classified <RANJAN Adrian-C - Last Filed: 05/14/19 11:45> Status: Acute <Ciara Jones PA-C - Last Filed: 05/14/19 11:45> Assessment and Plan: Patient underwent right thoracentesis on 05/12/19 with 1000 [place] [address]. Additional pleural studies normal, pathology report consistent with hemothorax and no malignant cells. Gram stain with no organisms seen. Prelim anaerobic culture with WBC and no organisms. Aerobic culture and acid fast bacilli pending. CXR on 05/12 revealed right apical opacification which could not exclude malignancy, f/u with CT revealed heterogeneous lenticular densities, suggestive of traumatic loculated hemothorax. Patients SOB improved following thoracentesis. Patient became acutely SOB today, requiring 1L O2 when previously tolerating room air without dyspnea. Breath sounds still diminished over right lung, possibly explained by further bleeding, but Hgb has remained stable so unlikely. WBC within normal limits at 6.8 and patient is afebrile, therefore infectious etiology is unlikely but will be monitored. - Order CXR to evaluate SOB - Continue to monitor WBC and vitals. - Continue 1L nasal canula, may wean O2 to target of >92% oxygen saturation. <RANJAN Adrian-C - Last Filed: 05/14/19 11:45> (2) Chest wall hematoma: Code(s): S20.219A - Contusion of unspecified front wall of thorax, initial encounter <Ciara Jones PA-C - Last Filed: 05/14/19 11:45> Status: Acute <Ciara Jones PA-C - Last Filed: 05/14/19 11:45> Assessment and Plan: Pt reports significant bruising to the right flank after her fall which has improved. Still visible but nontender. US guided thoracentesis revealed 6x2cm subpleural fluid collection. - Will continue to monitor chest wall <Ciara Jones PA-C - Last Filed: 05/14/19 11:45> (3) Paroxysmal atrial fibrillation: Code(s): I48.0 - Paroxysmal atrial fibrillation <Ciara Jones PA-C - Last Filed: 05/14/19 11:45> Status: Chronic <Ciara Goddardvinicius RANJAN-C - Last Filed: 05/14/19 11:45> Assessment and Plan: Chronic. Heart rate stable today at 89 and rhythm regular on auscultation. - Will continue home dose metoprolol. - Resume home dose of aspirin and plavix. <Ciara GoodenCYNTHIA BurrisC - Last Filed: 05/14/19 11:45> (4) Anemia: Qualifiers: Anemia type: unspecified type Qualified Code(s): D64.9 - Anemia, unspecified <Ciara GoodenHomero Nitzavinicius PA-C - Last Filed: 05/14/19 11:45> Code(s): D64.9 - Anemia, unspecified <Ciara GoodenHomero Nitzavinicius PA-C - Last Filed: 05/14/19 11:45> Status: Chronic <Ciara GoodenHomero NitzaRANJAN colvin-C - Last Filed: 05/14/19 11:45> Assessment and Plan: Pt with hx of anemia at last admission. H&H stable today with Hgb 11.4 and Hct 35.6. Patient is asymtomatic, has no evidence of active bleeding, and vitals are stable. - Continue to monitor CBC and transfuse prn. <Ciara GoodenHomero NitzaCYNTHIA colvinC - Last Filed: 05/14/19 11:45> (5) Generalized weakness: Code(s): R53.1 - Weakness <Ciara GoodenCYNTHIA BurrisC - Last Filed: 05/14/19 11:45> Status: Chronic <Ciara GoodenHomero Nitzavinicius PA-C - Last Filed: 05/14/19 11:45> Assessment and Plan: Pt reports chronic weakness. Patient is at risk for additional falls. - Continue PT and OT eval/treatment with recommendations appreciated. <Ciara GoodenCYNTHIA BurrisC - Last Filed: 05/14/19 11:45> (6) TIA (transient ischemic attack): Code(s): G45.9 - Transient cerebral ischemic attack, unspecified <Ciara BerkleyRANJAN Burris-C - Last Filed: 05/14/19 11:45> Status: Chronic <Ciara Jones PA-C - Last Filed: 05/14/19 11:45> Assessment and Plan: Pt with hx of
--- NOTE | 2019-05-14 11:21 | PCOTNOTE ---
Attempted to see patient this am. Pt was resting upon entering and declined therapy at this time stating, I don't want to mess with it right now.
[2019-05-14] MEDS: ASPIRIN 81 MG CHEWABLE TABLET PO (11:54)
[2019-05-14] MEDS: CLOPIDOGREL BISULFATE 75 MG TABLET PO (11:54)
--- NOTE | 2019-05-14 18:10 | PC.NURSE ---
Report called to SIMONA Odom at [facility]. All questions and concerns answered at this time.
--- NOTE | 2019-05-14 18:49 | PM.DS ---
DS: Diagnosis Admitting Diagnosis Admitting Diagnosis: Pleural effusion, not elsewhere classified Discharge Diagnosis (1) Pleural effusion, right: Code(s): J90 - Pleural effusion, not elsewhere classified Status: Acute Assessment and Plan: (2) Chest wall hematoma: Code(s): S20.219A - Contusion of unspecified front wall of thorax, initial encounter Status: Acute (3) Paroxysmal atrial fibrillation: Code(s): I48.0 - Paroxysmal atrial fibrillation Status: Chronic Assessment and Plan: (4) Anemia: Qualifiers: Anemia type: unspecified type Qualified Code(s): D64.9 - Anemia, unspecified Code(s): D64.9 - Anemia, unspecified Status: Chronic (5) Generalized weakness: Code(s): R53.1 - Weakness Status: Chronic Assessment and Plan: (6) TIA (transient ischemic attack): Code(s): G45.9 - Transient cerebral ischemic attack, unspecified Status: Chronic (7) Hypertension: Qualifiers: Hypertension type: unspecified Qualified Code(s): I10 - Essential (primary) hypertension Code(s): I10 - Essential (primary) hypertension Status: Chronic (8) Anxiety: Code(s): F41.9 - Anxiety disorder, unspecified Status: Chronic (9) Transaminitis: Code(s): R74.0 - Nonspecific elevation of levels of transaminase and lactic acid dehydrogenase [LDH] Status: Acute (10) Protein calorie malnutrition: Code(s): E46 - Unspecified protein-calorie malnutrition Status: Acute DS: Summary Hospital Course Reason for hospitalization: Shortness of breath Hospital Course: Date of service of discharge: 05/14/2019 Date of admission: 05/11/2019 Shonda Wiggins is an 83 year old female with a past medical history significant for HTN, depression, pAF, and recent hospitalization from 04/14-04/21/19 due to generalized weakness following a fall. She had been short of breath since discharge and had been on 2-4 liters of oxygen. She was admitted to the hospitalist service on 05/11/2019. She was determined to have a right sided pleural effusion evident on CXR which was large in size. She underwent thoracentesis which yielded 1000 ml of exudative red fluid, determined to have elevated RBCs. Additional pleural fluid studies were within normal limits. Pathology report was consistent with hemothorax and showed no malignant cells. Gram stain with no organisms seen. Preliminary aerobic and anaerobic cultures reveal no organisms, with WBC seen in anaerobic culture. Repeat CXR showed improvement of effusion to now moderate size and right apical opacification, which was followed up with CT revealing traumatic loculated hemothorax consistent with right rib fractures. She was noted to have a chest wall hematoma overlying the right flank, secondary to her fall in March. The patients SOB improved following thoracentesis and she was tolerating room air. On 05/14/19, she had a brief episode of SOB which resolved quickly with 1L O2. She had diminished right lung base breath sounds. CXR revealed atelectasis and now small right pleural effusion. She was instructed to obtain repeat CXR and H&H in one week. Her home dose aspirin and plavix was inititally held due to risk of bleeding, but resumed in light of history of TIA and paroxysmal Afib as Hgb remained stable and she displayed no signs of active bleeding. Blood pressures remained stable on home dose lisinopril and recently decreased home dose metoprolol. She also was noted to have elevated liver enzymes, which eventually normalized, though ALT remained mildly elevated. Bilirubin remained within normal limits. She was asymptomatic and anicteric. Further workup may be initiated at discretion of PCP. She did experience generalized weakness, consistent with prior admissions. She was evaluated and treated by PT and OT, and may continue therapy at [facility], which she has participate
[2019-05-14] MEDS: LORAZEPAM 0.5 MG TABLET PO (20:43)
--- NOTE | 2019-06-27 11:20 | PC.NURSE ---
AFB is negative. Dr. Idalia arroyo.
== END 2019-05-14 21:12 | DRG 200 ==
LOC: ANHED 20:49 → ANH2MED 23:28
PROVIDERS: Physician Assistant; Admitting Provider Family Medicine; Emergency Provider Emergency Medicine; PCP Family Medicine; Visit Provider Physician Assistant
DX: S27.1XXA Traumatic hemothorax, initial encounter (principal); E46 Unspecified protein-calorie malnutrition; Z68.1 Body mass index [BMI] 19.9 or less, adult; I10 Essential (primary) hypertension; I48.0 Paroxysmal atrial fibrillation; M19.90 Unspecified osteoarthritis, unspecified site; Z86.010 Personal history of colon polyps; Z86.73 Personal history of transient ischemic attack (TIA), and cerebral infarction without residual deficits; F41.8 Other specified anxiety disorders; W18.00XA Striking against unspecified object with subsequent fall, initial encounter; R13.10 Dysphagia, unspecified; K64.8 Other hemorrhoids; Z85.528 Personal history of other malignant neoplasm of kidney; G62.9 Polyneuropathy, unspecified; M81.0 Age-related osteoporosis without current pathological fracture; G47.30 Sleep apnea, unspecified; Z90.722 Acquired absence of ovaries, bilateral; Z90.5 Acquired absence of kidney; Z96.653 Presence of artificial knee joint, bilateral; F17.210 Nicotine dependence, cigarettes, uncomplicated; S20.219A Contusion of unspecified front wall of thorax, initial encounter; Z91.81 History of falling; M41.9 Scoliosis, unspecified
CPT/HCPCS: 32555; 36415; 36600; 51701; 71045; 71046; 71260; 80048; 80053; 81001; 82040; 82042; 82150; 82247; 82248; 82375; 82465; 82805; 82945; 83050; 83615; 83735; 83986; 84155; 84157; 84311; 84478; 85025; 85049; 85610; 85730; 87015; 87070; 87075; 87081; 87116; 87205; 87206; 87804; 88104; 88108; 88184; 88305; 89051; 93005; 96374; 97110; 97161; 97165; 97530; 99285; A9270; J1940; J2405; Q9967

== ENCOUNTER 2019-05-15 22:53 | Emergency (ER) | payer MEDICARE, SELFPAY ==
--- NOTE | ~2019-05-15 | CT_ITS ---
EXAMINATION: CT brain wo con INDICATION: Transient alteration of awareness, confusion COMPARISON: 04/13/2019 TECHNIQUE: Standard unenhanced head CT. The dose-length product (DLP) was 605.33 mGy-cm. The mA was a djusted according to patient size. Iterative reconstruction technique was employed. FINDINGS: There is no acute intraparenchymal hemorrhage. No evidence of mass lesion. No evidence of a cute infarction. There is mild periventricular and subcortical hypodensity probably related to small vessel ischemic disease. There is mild prominence of the sulci and ventricles related to cerebral atr ophy. Intracranial calcified cerebral atherosclerosis is noted. There are no extra-axial collections. There is no mass effect or midline shift. The orbits and soft tissues are unremarkable. The visuali zed sinuses and mastoid air cells are well aerated. IMPRESSION: 1. No acute intracranial abnormality. 2. Age related findings. Reviewed, dictated and finalized at location A.
--- NOTE | ~2019-05-15 | XR_ITS ---
EXAMINATION: XR chest 2V DATE: 05/15/2019 23:49 INDICATION: Transient alteration of awareness TECHNIQUE: AP and lateral views of the chest are obtained. COMPARISON: 05/14/2019, 05/13/2019 FINDINGS: There is overall no significant change. There are stable opacities projecting in the right lung apex and right lower lung zone related to subpleural hematomas from recent fractures of the righ t seventh and eighth ribs (findings are better appreciated on CT from 05/13/2019). A small right pleur al effusion is unchanged. There is no pneumothorax. Airspace opacities of the right mid and lower mago g zones are unchanged. The left lung is clear. There is stable cardiomegaly. S-shaped curvature of th e spine is again noted. 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 IMPRESSION: 1. Overall no significant change. 2. Small right pleural effusion. 3. Airspace opacities of the right mid and lower lung zone, most consistent with passive atelectasis. 4. Unchanged pleural-based opacities, most consistent with subpleural hematoma is better visualized o n recent chest CT. Reviewed, dictated and finalized at location A. IMPRESSION: 1. Overall no significant change. 2. Small right pleural effusion. 3. Airspace opacities of the right mid and lower lung zone, most consistent wit h passive atelectasis. 4. Unchanged pleural-based opacities, most consistent with subpleural hematoma is better visualized on recent chest CT.
[2019-05-15 22:53] VITALS: BP 138/82; PULSE 70; RESP 12; TEMP 36.4; O2SAT 98
--- NOTE | 2019-05-15 22:53 | ED.AMS ---
HPI - Altered Mental Status General Chief Complaint: Altered Mental Status Stated Complaint: confusion Time Seen by Provider: 05/15/19 22:54 Source: patient, EMS and RN notes reviewed Mode of arrival: EMS Limitations: other (poor historian) History of Present Illness HPI narrative: A 83 y/o female presents to the ED via EMS from [facility] d/t increased confusion for since last night. Per EMS reports that the [facility] staff states that the pt was here last night and returned to the MD around 9:30 PM last night. They report that the pt was slightly more confused last night but that tonight she became much more confused, so they called EMS to have the pt evaluated. The pt denies any CP, SOB, ABD pain, back pain, or ROBERTS. MD complaint: confusion Onset (ago): day(s) (last night) Time: 21:30 Timing confirmed by: caregiver (MD staff) Consistency of symptoms: getting Worse Associated symptoms: denies other symptoms Related Data Home Medications Medication Instructions Recorded Confirmed One-A-Day Womens Formula 1 tablet PO DAILY 04/13/19 05/11/19 aspirin 81 mg PO DAILY 04/13/19 05/11/19 calcium polycarbophil [FiberCon] 625 mg PO BID 04/13/19 05/11/19 cyanocobalamin (vitamin B-12) 1,000 mcg PO DAILY 04/13/19 05/11/19 [Vitamin B-12] sertraline 100 mg PO BID 04/13/19 05/11/19 lisinopril 20 mg PO DAILY 05/11/19 05/11/19 Allergies Allergy/AdvReac Type Severity Reaction Status Date / Time Penicillins Allergy Unknown Unknown Verified 05/15/19 23:03 Review of Systems Review of Systems: Narrative: CARDIOVASCULAR: Denies chest pain. RESPIRATORY: Denies dyspnea. GASTROINTESTINAL: Denies abdominal pain. MUSCULOSKELETAL: Denies back pain. NEUROLOGIC: Denies headache. Increased confusion per staff. . 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 Leukemia Patient denies Melena Neuropathy Osteoporosis Ovarian cancer rt Ovarian cyst Parathyroid tumor Partial parathyroidectomy Peripheral neuropathy Sleep apnea Intolerant of CPAP TIA (transient ischemic attack) Surgical History Surgical History H/O arthroscopic knee surgery lt H/O local excision of skin lesion lt hand H/O oophorectomy bilateral History of nephrectomy rt partial History of total bilateral knee replacement (TKR) Hx of colonoscopy Family History Family History Mother Hypertension Cerebrovascular accident Father Malignant neoplasm of prostate Family history of coronary artery disease Family history of congestive heart failure Grandparent Diabetes mellitus Other Family history of cardiovascular disease Social History Social History Social History: Patient tells me that she has to be a light smoker 1 pack a cigarettes in a week. She said she used to drink quite heavily but may be drinks occasionally once a month. She has 3 children. Initially she told me her daughter Nicolasa is a power staff attorney but then tells me that her daughter in law is the 1 to make decisions for her healthcare. The patient stated that she will be a full code and allow her daughter log and to make those decisions. She tells me that she is retired from the [email or web address]. She is and lives with her Mitchell. Years smoked: 60 Smoking status: Former smoker Tobacco type: cigarettes Second hand tobacco smoke exposure: Yes Smoking end date: 07/27/18 Alcohol intake: ne
--- NOTE | 2019-05-15 22:57 | ECG_ITS ---
Measurements Intervals [place] Rate: 63 P: 112 CT: 138 QRS: -21 QRSD: 98 T: -31 QT: 450 QTc: 461 Interpretive Statements SINUS RHYTHM VENTRICULAR PREMATURE COMPLEX CANNOT RULE OUT SEPTAL INFARCT, AGE INDETERMINATE T WAVE ABNORMALITY IN ANTERIOR LEADS- CONSIDER ISCHEMIA BASELINE ARTIFACT- I, II ABNORMAL ECG Electronically Signed On 05-16-2019 7:19:53 CDT by Ricardo Childers D.O.
[2019-05-15 23:06] LABS: Glucose Point of Care 99 (65-105)
[2019-05-15 23:14] LABS: Base Excess ABG 0.2 mEq/l (+/-2.0); Device NASAL CANNULA; Fractional Inspired Oxygen 24 %; HCO3 ABG 24.1 mEq/l (22.0-26.0); Modified Allen's Test Pass; Oxygen Content ABG 16.1 %vol (16.0-22.0); Oxygen Saturation ABG 94.9 % (95.0-100.0); Oxyhemoglobin 92.6 % THb (90.0-100.0); PCO2 ABG 36.4 mmHg (35.0-45.0); PO2 ABG 70.8 mmHg (80.0-100.0); PO2 FiO2 Ratio Arterial Blood 2.95 %; Site Drawn RIGHT RADIAL; Total Hemoglobin 12.3 g/dL (12.0-18.0); pH ABG 7.438 (7.350-7.450)
[2019-05-15 23:48] LABS: Basophils Percent Auto 0.2 % (0.2-1.2); Eosinophils Absolute Auto 0.2 K/mm3 (0-0.3); Eosinophils Percent Auto 3.5 % (0-4.4); Hematocrit 38.7 % (37.0-47.0); Hemoglobin 12.4 g/dL (12.0-15.0); Immature Granulocyte Absolute 0.02 K/mm3 (0.00-0.031); Immature Granulocyte Percent A 0.3 % (0-0.5); Lymphocytes Absolute Auto 0.77 K/mm3 (0.9-3.2); Lymphocytes Percent Auto 13.3 % (18.3-44.2); Mean Corpuscular Hemoglobin 27.7 pg (26-34); Mean Corpuscular Volume 86.4 fl (80-100); Mean Platelet Volume 11.3 fl (7.4-10.4); Monocytes Absolute Auto 0.3 K/mm3 (0.1-0.6); Monocytes Percent Auto 4.3 % (2.6-8.5); Neutrophils Absolute Auto 4.5 K/mm3 (1.3-6.7); Neutrophils Percent Auto 78.4 % (45.5-73.1); Platelet Count Result 218 k/mm3 (150-375); Red Blood Count 4.48 M/mm3 (4.2-5.4); Red Cell Distribution Width 14.6 % (11.5-14.5); White Blood Count 5.8 K/mm3 (4.5-10.0)
[2019-05-15 23:50] LABS: Add Urine Microscopic? NO; Appearance Urine Clear (Clear); Bilirubin Urine Negative (Negative); Blood Urine Negative (Negative); Color Urine Yellow (Yellow); Glucose Urine UA Negative (Negative); Ketones Urine Negative (Negative); Leukocyte Esterase Ur Negative LEU/UL (Negative); Nitrate Urine Negative (Negative); Protein Urine Negative (Negative); Specific Grav Ur 1.014 (1.001-1.035); Urobilinogen Urine Negative mg/dL (<2.0)
[2019-05-15 23:57] LABS: Prothrombin Time 12.7 Seconds (11.1-14.7)
[2019-05-15 23:58] LABS: Partial Thromboplastin Time 31.3 SECONDS (22.3-36.8)
[2019-05-16 00:08] LABS: Lactic Acid Reflex 0.9 mmol/L (0.7-2.1)
[2019-05-16 00:09] LABS: Ammonia < 9 umol/L (9-30)
[2019-05-16 00:09] LABS: Alanine Aminotransferase 60 U/L (4-35); Albumin Level 3.4 g/dL (3.5-5.1); Alkaline Phosphatase 107 U/L (38-126); Aspartate Amino Transferase 39 U/L (14-36); Bilirubin,Total 0.5 mg/dL (0.2-1.3); Blood Urea Nitrogen 19 mg/dL (7-17); Calcium 9.6 mg/dL (8.4-10.2); Carbon Dioxide 31 mmol/L (22-30); Chloride 101 mmol/L (98-107); Estimated Glomerular Filt Rate > 60; Glucose 95 mg/dL (65-105); Potassium 4.1 mmol/L (3.4-5.0); Sodium 136 mmol/L (137-145)
[2019-05-16 00:28] VITALS: BP 165/98; PULSE 64; RESP 15; O2SAT 100
--- NOTE | 2019-05-16 01:35 | PC.NURSE ---
0033: Called [facility] to transport patient to [facility]. ETA [id number] Called for status...ETA [id number] due to call volume exceeding availability.
[2019-05-16 01:43] VITALS: BP 174/83; PULSE 57; RESP 24; O2SAT 96
[2019-05-16 02:55] VITALS: BP 169/86; PULSE 60; RESP 21; O2SAT 99
== END 2019-05-16 03:00 ==
PROVIDERS: Emergency Provider Emergency Medicine; PCP Family Medicine
DX: R44.3 Hallucinations, unspecified (principal); Z79.82 Long term (current) use of aspirin; F41.9 Anxiety disorder, unspecified; M19.90 Unspecified osteoarthritis, unspecified site; I48.91 Unspecified atrial fibrillation; Z86.73 Personal history of transient ischemic attack (TIA), and cerebral infarction without residual deficits; I10 Essential (primary) hypertension; Z90.5 Acquired absence of kidney; Z85.89 Personal history of malignant neoplasm of other organs and systems; Z85.528 Personal history of other malignant neoplasm of kidney; M81.0 Age-related osteoporosis without current pathological fracture; E89.2 Postprocedural hypoparathyroidism; G62.9 Polyneuropathy, unspecified; G47.30 Sleep apnea, unspecified; Z96.653 Presence of artificial knee joint, bilateral; Z87.891 Personal history of nicotine dependence; I49.3 Ventricular premature depolarization; R94.31 Abnormal electrocardiogram [ECG] [EKG]; R91.8 Other nonspecific abnormal finding of lung field
CPT/HCPCS: 36415; 36600; 51701; 70450; 71046; 80053; 81003; 82140; 82805; 82948; 83605; 85025; 85610; 85730; 87040; 93005; 99284

== ENCOUNTER 2019-08-07 16:59 | Outpatient (CLI) | payer MEDICARE, SELFPAY ==
--- NOTE | ~2019-08-07 | CT_ITS ---
EXAMINATION: CT chest abdomen pelvis w con DATE: 08/07/2019 17:56 INDICATION: Pleural effusion. Abdominal pain. TECHNIQUE: Computed tomography (CT) of the chest, abdomen, and pelvis was performed with 100 mL Omnip aque 350 intravenous contrast. Automated exposure control and iterative reconstruction technique were employed. The dose-length product was 451.22 mGy-cm. COMPARISON: Chest CT 05/13/2019, CT abdomen and pelvis 01/15/2012, 06/23/2008 FINDINGS: CHEST CT: There is dependent passive atelectasis bilaterally, right worse than left. There are scattered areas of mild atelectasis in the lungs. There are moderate-sized right and small left pleural effusions. Th ere is smooth pleural thickening in superior posterior right hemithorax, likely benign. Cardiomegaly is noted. There are coronary artery calcifications. No pericardial effusion. There are nodules in the thyroid measuring up to 14 mm on the right, likely not clinically significant. There is a 4.3 cm fus iform aneurysm of ascending aorta. There are pulmonary emboli in right lower lobe. There are multiple old right rib fractures. There is dextroscoliosis and severe spondylosis of thoracic spine. ABDOMEN/PELVIS CT: The liver is normal. There are gallstones in the gallbladder, which is distended. There are 19 mm and 8 mm masses in the spleen. The pancreas and right adrenal gland are normal. There is a chronic 11 mm mass in left adrenal gland measuring soft tissue attenuation, likely an adenoma. There is cortical t hinning of the kidneys. There is a 2.0 cm densely calcified mass at the inferior pole of right kidney , likely benign. There are no dilated loops of bowel. There are no pathologically enlarged lymph node s. There is no free intraperitoneal fluid. There is levoscoliosis and severe spondylosis of thoracic lumbar spine. IMPRESSION: 1. Right lower lobe pulmonary emboli, new from 05/13/2019. 2. Moderate-sized right and small left pleural effusions. 3. 4.3 cm fusiform aneurysm of ascending aorta. 4. Cholelithiasis. Gallbladder distention may be secondary to fasting. Correlate with physical exam t o exclude acute cholecystitis. 5. Splenic lesions measuring up to 19 mm, most likely benign masses such as granulomatous disease or cysts. Reviewed, dictated and finalized at location A. IMPRESSION: 1. Right lower lobe pulmonary emboli, new from 05/13/2019. 2. Moderate-sized right and small left pleural effusions. 3. 4.3 cm fusiform aneurysm of ascending aorta. 4. Cholelithiasis. Gallbladder distention may be secondary to fasting. Correlat e with physical exam to exclude acute cholecystitis. 5. Splenic lesions measuring up to 19 mm, most likely benign masses such as gra nulomatous disease or cysts.
[2019-08-07 17:38] LABS: Estimated Glomerular Filt Rate 47
[2019-08-07 18:09] LABS: Basophils Percent Auto 0.2 % (0.2-1.2); Eosinophils Absolute Auto 0.1 K/mm3 (0-0.3); Eosinophils Percent Auto 1.9 % (0-4.4); Hematocrit 33.4 % (37.0-47.0); Hemoglobin 10.7 g/dL (12.0-15.0); Immature Granulocyte Absolute 0.03 K/mm3 (0.00-0.031); Immature Granulocyte Percent A 0.5 % (0-0.5); Lymphocytes Percent Auto 20.9 % (18.3-44.2); Mean Corpuscular Hemoglobin 27.9 pg (26-34); Mean Platelet Volume 11.5 fl (7.4-10.4); Monocytes Absolute Auto 0.3 K/mm3 (0.1-0.6); Monocytes Percent Auto 5.2 % (2.6-8.5); Neutrophils Absolute Auto 4.1 K/mm3 (1.3-6.7); Neutrophils Percent Auto 71.3 % (45.5-73.1); Platelet Count Result 143 k/mm3 (150-375); Red Blood Count 3.84 M/mm3 (4.2-5.4); Red Cell Distribution Width 18.4 % (11.5-14.5); White Blood Count 5.8 K/mm3 (4.5-10.0)
[2019-08-07 18:18] LABS: Alanine Aminotransferase 15 U/L (4-35); Albumin Level 3.3 g/dL (3.5-5.1); Alkaline Phosphatase 73 U/L (38-126); Amylase 60 U/L (30-110); Aspartate Amino Transferase 31 U/L (14-36); Bilirubin,Total 0.5 mg/dL (0.2-1.3); Blood Urea Nitrogen 22 mg/dL (7-17); Calcium 9.1 mg/dL (8.4-10.2); Carbon Dioxide 34 mmol/L (22-30); Chloride 100 mmol/L (98-107); Estimated Glomerular Filt Rate 53; Glucose 91 mg/dL (65-105); Lipase 108 U/L (23-300); Potassium 3.3 mmol/L (3.4-5.0); Sodium 136 mmol/L (137-145)
== END 2019-08-07 17:00 | disposition home or self-care (01) ==
PROVIDERS: PCP Family Medicine; Visit Provider Family Medicine
DX: R10.9 Unspecified abdominal pain (principal); K80.20 Calculus of gallbladder without cholecystitis without obstruction; I71.4 Abdominal aortic aneurysm, without rupture; J90 Pleural effusion, not elsewhere classified; I26.99 Other pulmonary embolism without acute cor pulmonale
CPT/HCPCS: 36415; 71260; 74177; 80053; 82150; 83690; 85025; Q9967

== ENCOUNTER 2019-08-07 19:06 | Observation (INO) | payer MEDICARE, SELFPAY ==
[2019-08-07] VITALS (7 sets, daily range): BP systolic 154–185; BP diastolic 75–96; PULSE 58–76; RESP 16–25; TEMP 36.7; O2SAT 96–99
--- NOTE | ~2019-08-07 | XR_ITS ---
EXAMINATION: XR chest 2V DATE: 08/10/2019 12:11 INDICATION: Pleural effusion. TECHNIQUE: Frontal and lateral views of the chest were obtained. COMPARISON: Chest 2 views 05/15/2019, chest CT 08/07/2019 FINDINGS: There are moderate-sized right and small left pleural effusions. There are airspace opaciti es in right mid and lower lung zones and left lower lung zone. No pneumothorax. Cardiomegaly is noted . There are old right rib fractures. IMPRESSION: 1. Moderate-sized right and small left pleural effusions. 2. Airspace opacities in right mid and lower lung zones and left lower lung zone, likely atelectasis. Reviewed, dictated and finalized at location A. IMPRESSION: 1. Moderate-sized right and small left pleural effusions. 2. Airspace opacities in right mid and lower lung zones and left lower lung zon e, likely atelectasis.
--- NOTE | ~2019-08-07 | NM_ITS ---
EXAMINATION: NM annel stress w perfusion DATE: 08/11/2019 14:39 INDICATION: Systolic congestive heart failure. TECHNIQUE: Rest images were obtained following intravenous administration of 9.4 mCi Tc99m tetrofosmi n (Myoview). The patient was infused intravenously with Lexiscan (regadenoson). Then, 30 mCi Tc99m te trofosmin (Myoview) was administered intravenously, and stress images were obtained. Data was reconst ructed into short axis and horizontal and vertical long axis SPECT images. Gated SPECT images were al so obtained. COMPARISON: Chest CT 08/07/2019 FINDINGS: There is a small, mild, fixed perfusion defect involving mid to basal inferolateral segment s of left ventricle, consistent with infarct. No reversible component to suggest ischemia. There is inferolateral hypokinesis. Left ventricular ejection fraction measures 40%. IMPRESSION: 1. Small area of mild infarct involving mid to basal inferolateral segments of left ventricle. 2. Inferolateral hypokinesis with left ventricular ejection fraction measuring 40%. Reviewed, dictated and finalized at location A.
--- NOTE | ~2019-08-07 | US_ITS ---
EXAMINATION: US venous doppler [facility] DATE: 08/09/2019 14:01 INDICATION: Pulmonary embolism TECHNIQUE: Cali scale images without and with compression and Doppler images of the bilateral lower e xtremity veins were obtained. COMPARISON: 12/14/2008 FINDINGS: The right common femoral vein, profunda femoral vein, femoral vein, popliteal vein, peroneal trunk, p osterior tibial veins, and greater saphenous vein are patent. The left common femoral vein, profunda femoral vein, femoral vein, popliteal vein, peroneal trunk, po sterior tibial veins, and greater saphenous vein are patent. IMPRESSION: 1. Patent bilateral lower extremity veins. No evidence of deep venous thrombosis. Reviewed, dictated and finalized at location A. IMPRESSION: 1. Patent bilateral lower extremity veins. No evidence of deep venous thrombosi s.
--- NOTE | 2019-08-07 19:27 | ECG_ITS ---
Measurements Intervals [place] Rate: 69 P: -15 PA: 136 QRS: -19 QRSD: 102 T: 31 QT: 414 QTc: 445 Interpretive Statements SINUS RHYTHM FREQUENT ATRIAL PREMATURE COMPLEXES CANNOT RULE OUT SEPTAL INFARCT, AGE INDETERMINATE ST-T WAVE ABNORMALITY IN LATERAL LEADS- CONSIDER ISCHEMIA BASELINE ARTIFACT- V4-V5 ABNORMAL ECG Electronically Signed On 08-08-2019 6:59:39 CDT by Ricardo Childers D.O.
--- NOTE | 2019-08-07 20:02 | ED.SOB ---
HPI - SOB/Dyspnea General Chief Complaint: Shortness of Breath/Dyspnea Stated Complaint: PE Time Seen by Provider: 08/07/19 19:28 History of Present Illness HPI Narrative: 84 yo female presents from radiology for PE. She reportedly has not been doing well over the past few weeks. She has been complaining of abdominal fluttering, weakness and fatigue. She was seen by Dr. Cowan and had a CT of the chest abdomen and pelvis done showing RLL PE and bilateral pleural effusions. Related Data Home Medications Medication Instructions Recorded Confirmed One-A-Day Womens Formula 1 tablet PO DAILY 04/13/19 08/07/19 aspirin 81 mg PO DAILY 04/13/19 08/07/19 calcium polycarbophil [FiberCon] 625 mg PO BID 04/13/19 08/07/19 cyanocobalamin (vitamin B-12) 1,000 mcg PO DAILY 04/13/19 08/07/19 [Vitamin B-12] lisinopril 20 mg PO DAILY 05/11/19 08/07/19 amlodipine 10 mg PO HS 08/07/19 08/07/19 ropinirole 1 mg PO Q12H 08/07/19 08/07/19 sertraline 100 mg PO Q12H 08/07/19 08/07/19 tramadol 50 mg PO Q12H 08/07/19 08/07/19 Allergies Allergy/AdvReac Type Severity Reaction Status Date / Time Penicillins Allergy Unknown Unknown Verified 08/07/19 20:12 Review of Systems Review of Systems: All systems reviewed & are unremarkable except as noted in HPI and below Constitutional: Constitutional: Denies fever(s) and Reports weakness Cardiovascular: Cardiovascular: Denies chest pain Respiratory: Respiratory: Reports dyspnea Neurologic: Reports weakness Endocrine: Endocrine: Reports fatigue [facility] Past Medical History Medical History Abdominal discomfort Anxiety Arthritis Atrial fibrillation, new onset Back pain Bakers cyst Colon polyps CVA (cerebral vascular accident) Depression Dysphagia Femur fracture, right Non operative Fractures ankle, foot Hemorrhoids internal History of rectal polyps Hypercalcemia Hypertension Hypoxia Kidney tumor rt partial nephrectomy, patient reports she had a small cancer Leukemia Patient denies Melena Neuropathy Osteoporosis Ovarian cancer rt Ovarian cyst Parathyroid tumor Partial parathyroidectomy Peripheral neuropathy Pleural effusion Sleep apnea Intolerant of CPAP TIA (transient ischemic attack) Weight loss Surgical History Surgical History H/O arthroscopic knee surgery lt H/O local excision of skin lesion lt hand H/O oophorectomy bilateral History of nephrectomy rt partial History of total bilateral knee replacement (TKR) Hx of colonoscopy Family History Family History Mother Hypertension Cerebrovascular accident Father Malignant neoplasm of prostate Family history of coronary artery disease Family history of congestive heart failure Grandparent Diabetes mellitus Other Family history of cardiovascular disease Social History Social History Social History: Patient tells me that she has to be a light smoker 1 pack a cigarettes in a week. She said she used to drink quite heavily but may be drinks occasionally once a month. She has 3 children. Initially she told me her daughter Nicolasa is a power district attorney but then tells me that her daughter in law is the 1 to make decisions for her healthcare. The patient stated that she will be a full code and allow her daughter log and to make those decisions. She tells me that she is retired from the [employer]. She is and lives with her Mitchell. Years smoked: 60 Smoking status: Former smoker Tobacco type: cigarettes Second hand tobacco smoke exposure: Yes Smoking end date: 07/27/18 Alcohol intake: never Substance use: never Gender identity (if verbalized by the patient): Female Sexual Orientation (if Verbalized by the Patient): Straight or Heterosexual Spiri
[2019-08-07 20:22] LABS: Prothrombin Time 12.5 Seconds (11.1-14.7)
[2019-08-07 20:23] LABS: Partial Thromboplastin Time 28.7 SECONDS (22.3-36.8)
[2019-08-07 20:30] LABS: NT Pro B Type Natriuretic Pept 12900 PG/ML (5-100); Troponin I 0.022 ng/mL (0.000-0.034)
[2019-08-07 22:42] LABS: Add Urine Microscopic? YES; Appearance Urine Clear (Clear); Bilirubin Urine Negative (Negative); Blood Urine Negative (Negative); Color Urine Yellow (Yellow); Glucose Urine UA Negative (Negative); Ketones Urine Negative (Negative); Leukocyte Esterase Ur Trace LEU/UL (Negative); Mucus Urine Rare /lpf; Nitrate Urine Negative (Negative); Protein Urine Negative (Negative); RBC Urine 0-2 /hpf (0-2); Specific Grav Ur 1.056 (1.001-1.035); Squamous Epithelial Cell Urine Rare /hpf (Few); Urobilinogen Urine Negative mg/dL (<2.0)
[2019-08-08] VITALS (14 sets, daily range): BP systolic 149–174; BP diastolic 69–85; PULSE 55–70; RESP 15–20; TEMP 36.3–36.9; O2SAT 93–96; BMI 18.4
--- NOTE | 2019-08-08 | ECHO_ITS ---
Patient Info Name: Shonda Wiggins Age: 84 years : 1935 Gender: Female Ht: 64 in Wt: 107 lbs BSA: 1.47 m2 HR: 63 bpm BP: 158 / 74 mmHg Heart Rhythm: Sinus Rhythm Technical Quality: Good Exam Date: 08/08/2019 10:51 AM Exam Location: [facility] Pulmonary Patient Status: Outpatient Admit Date: 08/07/2019 Staff Ordering Physician: Pepper Winkler PA-C Salvationist: Leonel Soriano RDCS, RT Attending Provider: Pepper Winkler PA-C Referring Physician: Cathi JENNINGS; Exam Type: CA echo doppler color flow Study Info Indications J90 - Pleural effusion, not elsewhere classified Complete two-dimensional, color flow and Doppler transthoracic echocardiogram is performed. Summary 1. Left ventricular chamber dimension is mildly enlarged. 2. Left ventricular systolic function is mildly reduced, estimated at 40-45%. 3. There is mildly increased left ventricular wall thickness. 4. The left ventricular diastolic function is grade I diastolic dysfunction. 5. Global longitudinal strain is abnormal at -11 %. 6. The basal inferior wall is akinetic. 7. The inferolateral wall, mid inferior wall, basal inferoseptal, and mid anterolateral wall are hypokinetic. 8. Right ventricular chamber dimension is mildly enlarged. 9. Left atrial chamber dimension is severely enlarged. 10. There is mild aortic valve sclerosis. 11. There is moderate to severe aortic valve regurgitation. 12. There is moderate mitral valve regurgitation. 13. There is mild tricuspid valve regurgitation. 14. Mild pulmonary hypertension, estimated pulmonary arterial systolic pressure is 43 mmHg. 15. There is moderate pulmonic regurgitation. Left Ventricle Left ventricular chamber dimension is mildly enlarged. Left ventricular systolic function is mildly reduced, estimated at 40-45%. There is mildly increased left ventricular wall thickness. The left ventricular diastolic function is grade I diastolic dysfunction. Global longitudinal strain is abnormal at -11 %. The basal inferior wall is akinetic. The inferolateral wall, mid inferior wall, basal inferoseptal, and mid anterolateral wall are hypokinetic. All other brooke appear normal. Right Ventricle Right ventricular chamber dimension is mildly enlarged. Right ventricular systolic function is normal. Left Atria Left atrial chamber dimension is severely enlarged. Right Atria Right atrial chamber dimension is normal. Atrial Septum Intact interatrial septum visualized by color flow imaging. Aortic Valve The aortic valve is trileaflet. There is mild aortic valve sclerosis. There is no aortic valve stenosis. There is moderate to severe aortic valve regurgitation. Pulmonic Valve The pulmonic valve is normal. There is no pulmonic valve stenosis. There is moderate pulmonic regurgitation. Mitral Valve The mitral valve has calcified annulus. There is no mitral valve stenosis. There is moderate mitral valve regurgitation. Tricuspid Valve The tricuspid valve leaflets are normal. There is no significant tricuspid valve stenosis. There is mild tricuspid valve regurgitation. Mild pulmonary hypertension, estimated pulmonary arterial systolic pressure is 43 mmHg. Pericardium/Pleural The pericardium appears normal. There is small pericardial effusion. Inferior Vena Cava Normal inferior vena cava with >50% collapse upon inspiration consistent with elevated right atrial pressure, 10 mmHg. Aorta The aortic root size at t
[2019-08-08] MEDS: ENOXAPARIN 40 MG/0.4 ML SYRINGE SUB-Q (00:21)
--- NOTE | 2019-08-08 01:13 | PC.NURSE ---
This patient, Shonda Wiggins, was admitted to 2 Medical Room 253-01. Patient/family oriented to hospital policies and general routines including ID bracelet, bed and alarms, visiting hours, pain management, procedures, bathroom and other care routines, personal items, smoking policy, room service/diet, and visiting hours. Valuables list has been completed. Information on how to activate the Rapid Response Team has been discussed. Patient/Family are encouraged to report perceived risks to care and to ask questions if they do not understand what they are told or what they should do.
[2019-08-08] MEDS: VANCOMYCIN ORAL 125 MG/2.5 ML SYRUP PO ×3 (05:57→18:54)
--- NOTE | 2019-08-08 07:38 | PM.IMHP ---
H&P: HPI History of Present Illness Chief complaint: PE, pleural effusion Narrative: Shonda Wiggins is a 84 year old female who presented to the ED d/t a CT scan showing a PE from her PCP's office. Patient was able to answer most questions but did get confused. I also got some information from Nicolasa, her daughter that she lives with. The patients states she started feeling short of breath about 1 week ago. This start gradually and was not associated with a cough. As far as she knows, she says she has no problems lying flat. She has never had a blood clot before, is not on any hormone therapy, and does not smoke. She says her SOB is with movement and says she walks with a walker at home. When asked if she falls, she says she occasionally falls. I asked when her last fall was and she kept saying September, and I tried to explain that she also had a fall in [facility] and she remembered that one as well, but was consistently saying her last fall was september. The pt has been hospitalized in mar and april and went to rehab for a short time after that. Nicolasa, her daughter, says she did not do well in therapy. She stated that she lost 20lbs and got much weaker while being in therapy and they were not happy with [facility]. She was moved to her daughters home and she is never alone there and requires care and doesn't get up alone. The daughter states she has gained some weight since being out of rehab. Pt also has hx of cdiff that was treated but she started having abd pain again and her pcp gave her 20 days of oral vanc starting 07/30 to ensure it is not coming back. Pt states she has never had a OK and has no stents. Daughter says she has had TIAs but no confirmed CVA. Pt lives with daugther Nicolasa, SHAUNA is daughter in law Lachelle Wiggins. Review of Systems Review of Systems: All systems reviewed & are unremarkable except as noted in HPI and below PMFSH Past Medical History Medical History (Updated 08/08/19 @ 09:29 by Pepper Winkler PA-C) Abdominal discomfort Anxiety Arthritis Atrial fibrillation, new onset Back pain Bakers cyst Colon polyps Depression Dysphagia Femur fracture, right Non operative Fractures ankle, foot Hemorrhoids internal History of Clostridioides difficile colitis History of rectal polyps Hypercalcemia Hypertension Hypoxia Kidney tumor rt partial nephrectomy, patient reports she had a small cancer Leukemia Patient denies Melena Neuropathy Osteoporosis Ovarian cancer rt Ovarian cyst Parathyroid tumor Partial parathyroidectomy Peripheral neuropathy Pleural effusion Sleep apnea Intolerant of CPAP TIA (transient ischemic attack) Weight loss Surgical History Surgical History H/O arthroscopic knee surgery lt H/O local excision of skin lesion lt hand H/O oophorectomy bilateral History of nephrectomy rt partial History of total bilateral knee replacement (TKR) Hx of colonoscopy Family History Family History Mother Hypertension Cerebrovascular accident Father Malignant neoplasm of prostate Family history of coronary artery disease Family history of congestive heart failure Grandparent Diabetes mellitus Other Family history of cardiovascular disease Social History Social History (Updated 08/08/19 @ 09:30 by Pepper Winkler PA-C) Social History: Pt smoked occasionally but no longer does so. She rarely drinks ETOH. LIN Mejia. Walks with a walker and lives with her daughter where she gets 24/7 care Years smoked: 60 Smoking status: Former smoker Tobacco type: cigarettes Second hand tobacco smoke exposure: Yes Smoking end date: 07/27/18 Alcohol intake: never Substance use: never Gender identity (if verbalized by the patient): Female Sexual Orientation (if Verbalized by the Patient): Straight or Heterosexual Spiritual care concerns: No A
[2019-08-08 08:33] LABS: Hematocrit 34.6 % (37.0-47.0); Hemoglobin 11.2 g/dL (12.0-15.0); Mean Corpuscular HGB Conc 32.4 g/dl (32-36); Mean Corpuscular Hemoglobin 28.1 pg (26-34); Mean Corpuscular Volume 86.7 fl (80-100); Mean Platelet Volume 12.1 fl (7.4-10.4); Platelet Count Result 154 k/mm3 (150-375); Red Blood Count 3.99 M/mm3 (4.2-5.4); Red Cell Distribution Width 18.3 % (11.5-14.5); White Blood Count 6.4 K/mm3 (4.5-10.0)
[2019-08-08 08:59] LABS: Troponin I 0.033 ng/mL (0.000-0.034)
[2019-08-08] MEDS: POTASSIUM CHLORIDE 20 MEQ TABLET 40 MEQ PO (09:46)
[2019-08-08] MEDS: calcium polycarbophiL 625 MG TABLET PO ×2 (09:47→16:34)
[2019-08-08] MEDS: lisinopriL 20 MG TABLET PO (09:47)
[2019-08-08] MEDS: TRAMADOL HCL 50 MG TABLET PO ×2 (09:47→20:41)
[2019-08-08] MEDS: CYANOCOBALAMIN 1,000 MCG TABLET 1000 MCG PO (09:47)
[2019-08-08] MEDS: METOPROLOL TARTRATE 25 MG TABLET PO ×2 (09:48→20:40)
[2019-08-08] MEDS: ASPIRIN 81 MG CHEWABLE TABLET PO (09:48)
[2019-08-08] MEDS: SERTRALINE HCL 50 MG TABLET 100 MG PO ×2 (09:48→20:40)
[2019-08-08] MEDS: THERAPEUTIC MULTIVITAMINS/MINERALS TAB (*BKC) 1 TABLET PO (09:48)
[2019-08-08 10:34] LABS: Free T4 Free Thyroxine Reflex 1.12 ng/dL (0.78-2.19)
--- NOTE | 2019-08-08 13:23 | PCOTNOTE ---
OT evaluation attempted this date. Patient stating that she does not feel good at this time and wants to stay in bed. will attempt OT evaluation at later time.
--- NOTE | 2019-08-08 13:24 | PCPTNOTE ---
PT attempted to evaluate patient this afternoon, however patient refused despite max encouragement. Will re-attempt to see patient as deemed appropriate. Mindy Vallejo, PT, DPT
[2019-08-08] MEDS: SUCRALFATE SUSP 100 MG/ML 10 ML UDC 1000 MG PO ×2 (16:33→20:40)
[2019-08-08] MEDS: ENOXAPARIN 60 MG/0.6 ML SYRINGE 50 MG SUB-Q (16:34)
[2019-08-08] MEDS: LORAZEPAM 0.5 MG TABLET PO (20:40)
[2019-08-08] MEDS: AMLODIPINE BESYLATE 5 MG TABLET 10 MG PO (20:40)
[2019-08-09] VITALS (13 sets, daily range): BP systolic 144–176; BP diastolic 58–139; PULSE 54–84; RESP 16–18; TEMP 36.4–36.9; O2SAT 98–100
[2019-08-09] MEDS: VANCOMYCIN ORAL 125 MG/2.5 ML SYRUP PO ×4 (00:34→17:08)
[2019-08-09] MEDS: SUCRALFATE SUSP 100 MG/ML 10 ML UDC 1000 MG PO ×4 (05:43→21:58)
[2019-08-09 06:43] LABS: Hematocrit 35.6 % (37.0-47.0); Hemoglobin 11.4 g/dL (12.0-15.0)
[2019-08-09 06:57] LABS: Blood Urea Nitrogen 18 mg/dL (7-17); Calcium 9.5 mg/dL (8.4-10.2); Carbon Dioxide 33 mmol/L (22-30); Chloride 103 mmol/L (98-107); Estimated CRCL calculation 31 ml/min; Estimated Glomerular Filt Rate 60; Glucose 92 mg/dL (65-105); Potassium 3.5 mmol/L (3.4-5.0); Sodium 139 mmol/L (137-145)
[2019-08-09] MEDS: CYANOCOBALAMIN 1,000 MCG TABLET 1000 MCG PO (08:53)
[2019-08-09] MEDS: lisinopriL 20 MG TABLET PO ×2 (08:53→11:37)
[2019-08-09] MEDS: THERAPEUTIC MULTIVITAMINS/MINERALS TAB (*BKC) 1 TABLET PO (08:53)
[2019-08-09] MEDS: ASPIRIN 81 MG CHEWABLE TABLET PO (08:53)
[2019-08-09] MEDS: SERTRALINE HCL 50 MG TABLET 100 MG PO ×2 (08:53→21:59)
[2019-08-09] MEDS: LEVOTHYROXINE SODIUM 25 MCG TABLET PO (08:54)
[2019-08-09] MEDS: METOPROLOL TARTRATE 25 MG TABLET PO (08:54)
[2019-08-09] MEDS: calcium polycarbophiL 625 MG TABLET PO ×2 (09:02→16:32)
[2019-08-09] MEDS: TRAMADOL HCL 50 MG TABLET PO ×2 (09:02→21:58)
[2019-08-09] MEDS: PANTOPRAZOLE SOD SESQUIHYDRATE 20 MG TAB PO (10:00)
--- NOTE | 2019-08-09 11:00 | PM.CNCAR ---
Assessment and Plan Assessment and plan (1) Acute systolic (congestive) heart failure: Code(s): I50.21 - Acute systolic (congestive) heart failure Status: Acute Assessment and Plan: EF is worse than earlier this year. Likely ischemic in etiology. She also has significant valvular heart disease. Unfortunately she is frail with some underlying memory loss. Will need to treat medically and optimized as much as possible and evaluate for clinical response. Therefore I am going to increase her lisinopril to 40 mg daily. I am going to discontinue her metoprolol and start carvedilol 25 mg p.o. b.i.d.. Hold amlodipine for now to allow for these above medication changes. Agree with holding clopidogrel and given her fall risk and need for anticoagulation I am actually going to stop her aspirin at this point also. Possible stress test Sunday. Will initiate some diuresis in the form of furosemide 20 mg IV daily. Basic metabolic panel daily. If she does not have significant improvement of her pleural effusion, she should have a thoracentesis (2) Valvular heart disease: Code(s): I38 - Endocarditis, valve unspecified Status: Acute Assessment and Plan: significant aortic valvular disease in particular. Significant aortic insufficiency as well as moderate mitral regurgitation. Will try to treat clinically as she is not a candidate for surgery at this point even if thought to be needed (3) Pulmonary embolism: Qualifiers: Acute cor pulmonale presence: unspecified Chronicity: acute Pulmonary embolism type: unspecified Qualified Code(s): I26.99 - Other pulmonary embolism without acute cor pulmonale Code(s): I26.99 - Other pulmonary embolism without acute cor pulmonale Status: Acute Assessment and Plan: on anticoagulation. Certainly a precarious situation given her significant fall risk low. Will check bilateral lower extremity venous Dopplers (4) Falls: Code(s): W19.XXXA - Unspecified fall, initial encounter Status: Acute (5) Aneurysm, ascending aorta: Code(s): I71.2 - Thoracic aortic aneurysm, without rupture Status: Acute Assessment and Plan: optimize blood pressure control (6) Essential (primary) hypertension: Code(s): I10 - Essential (primary) hypertension Status: Acute Assessment and Plan: changes as above to her BP regimen (7) Paroxysmal atrial fibrillation: Code(s): I48.0 - Paroxysmal atrial fibrillation Status: Chronic Assessment and Plan: in sinus rhythm at this point but has a chads Vasc score of 7 History of Present Illness History of Present Illness Consult date/time: 08/09/19 11:00 Requesting physician: Pepper Winkler PA-C Consult reason: congestive heart failure and Other ( abnormal echo) Reason For Visit: PE, pleural effusion Narrative: date of service 08/09/2019 Requesting provider: Pepper Winkler history: Patient is a poor historian but was hospitalized earlier this year and was seen by Dr. Cook because of atrial fibrillation. She had been having some generalized weakness as well as falls with worsening anemia. She went to senior care but did not do well and ended up going home to her daughter's house where she had outpatient rehab. She was sent to the emergency department because of a CT scan showing a pulmonary embolism that was new as well as a pleural effusion. Reportedly the patient had been increasingly short of breath x1 week. She has not been having any chest pain. She has been having some falls however which is concerning given her need for anticoagulation. She currently is lying in bed and feeling okay and denies any chest pain, shortness of breath, syncope, presyncope, paroxysmal nocturnal dyspnea, orthopnea, edema or palpitations. an echocardiogram was ordered which I personally read showing an ejection fraction in the 40s. She also had wall motion a
[2019-08-09] MEDS: FUROSEMIDE INJ 40 MG/4 ML VIAL 20 MG IV PUSH (11:37)
--- NOTE | 2019-08-09 12:19 | PM.IMPN ---
Progress Note: A&P Assessment and Plan (1) Pulmonary embolism: Qualifiers: Acute cor pulmonale presence: unspecified Chronicity: acute Pulmonary embolism type: unspecified Qualified Code(s): I26.99 - Other pulmonary embolism without acute cor pulmonale Code(s): I26.99 - Other pulmonary embolism without acute cor pulmonale Status: Acute Assessment and Plan: -----the patient has had weakness and fatigue with some SOB starting 1 week ago. She has been hospitalized in March and April of this year. This increases her risk of DVT/PE. No hx of clots, hormonal therapy, or current smoking. She does have a history of falls and was a moderate assist with PT OT last stay. She failed SNF therapy a few months ago and did better at home with home health PT/OT. We will continue with Lovenox while hospitalized and likely discharge on Eliquis. She does have a higher risk of bleed and I do think she would benefit from SNF before going home. Family is going to discuss. EKG reviewed without any evidence of cor pulmonale. BNP elevated, echo reviewed. Aspirin and plavix both discontinued. (2) Pleural effusion: Code(s): J90 - Pleural effusion, not elsewhere classified Status: Acute Assessment and Plan: -----patient has moderate right pleural effusion and a small left. She had this back in March as well after a fall. It was tapped at that point which showed a hemothorax with no malignant cells or infection. CT does not show any signs of mass or cancer at this time. The patient's BNP is elevated, possible CHF. The patient does not have any shortness of breath and had a thoracentesis 2 months ago, I do not think this needs to be repeated at this time especially now that she is on anticoagulation therapy. This should be monitored (3) History of Clostridioides difficile colitis: Code(s): Z86.19 - Personal history of other infectious and parasitic diseases Status: Acute Assessment and Plan: -----patient has a history of C diff and some abdominal discomfort so PCP wants oral vanc through 08/19. She has no leukocytosis or abnormalities of her colon on CT. (4) Aneurysm, ascending aorta: Code(s): I71.2 - Thoracic aortic aneurysm, without rupture Status: Acute Assessment and Plan: -----4.3 ascending aortic aneurysm noted on CT. It looked back at her last CT from April which does not mention this. This will be followed outpatient and I will let her primary care physician know about this. (5) Hypertension: Qualifiers: Hypertension type: unspecified Qualified Code(s): I10 - Essential (primary) hypertension Code(s): I10 - Essential (primary) hypertension Status: Chronic Assessment and Plan: -----last blood pressure 150/75. Will increase lisinopril. Cardiology has started lasix and coreg. Amlodipine stopped. (6) Hypokalemia: Code(s): E87.6 - Hypokalemia Status: Acute Assessment and Plan: -----mild, replaced (7) Anxiety: Code(s): F41.9 - Anxiety disorder, unspecified Status: Chronic Assessment and Plan: -----continue Zoloft (8) Restless leg: Code(s): G25.81 - Restless legs syndrome Status: Acute Assessment and Plan: -----continue Requip (9) Generalized weakness: Code(s): R53.1 - Weakness Status: Acute Assessment and Plan: -----patient was a moderate assist last time she was here in the hospital and still continues to complain of weakness. She is now on systemic oral anticoagulation and would benefit from PT and OT, possibly skilled. (10) Acute systolic (congestive) heart failure: Code(s): I50.21 - Acute systolic (congestive) heart failure Status: Acute Assessment and Plan: -----Noted on echo with hypokinesis of areas of the heart. I have consulted cardiology and meds were adjusted as
--- NOTE | 2019-08-09 12:44 | PC.NURSE ---
Spoke with the patient and the patient's power of corporate attorney and they both agree that the patient wishes to be a DNR at this time. The patient was instructed on what it means to be a DNR and has no further questions. I notified RANJAN Haynes of the patient's wishes.
[2019-08-09] MEDS: ENOXAPARIN 60 MG/0.6 ML SYRINGE 50 MG SUB-Q (16:32)
[2019-08-09] MEDS: LORAZEPAM 0.5 MG TABLET PO (21:58)
[2019-08-09] MEDS: carvediloL 25 MG TABLET PO (21:59)
[2019-08-10] VITALS (12 sets, daily range): BP systolic 114–162; BP diastolic 59–73; PULSE 49–85; RESP 16–18; TEMP 36.2–37.1; O2SAT 94–99
[2019-08-10] MEDS: VANCOMYCIN ORAL 125 MG/2.5 ML SYRUP PO ×5 (01:07→23:48)
[2019-08-10] MEDS: LEVOTHYROXINE SODIUM 25 MCG TABLET PO (06:13)
[2019-08-10] MEDS: SUCRALFATE SUSP 100 MG/ML 10 ML UDC 1000 MG PO ×4 (06:13→21:27)
[2019-08-10] MEDS: PANTOPRAZOLE SOD SESQUIHYDRATE 20 MG TAB PO (08:28)
[2019-08-10] MEDS: calcium polycarbophiL 625 MG TABLET PO ×2 (08:28→16:33)
[2019-08-10] MEDS: lisinopriL 20 MG TABLET 40 MG PO (08:29)
[2019-08-10] MEDS: THERAPEUTIC MULTIVITAMINS/MINERALS TAB (*BKC) 1 TABLET PO (08:29)
[2019-08-10] MEDS: SERTRALINE HCL 50 MG TABLET 100 MG PO ×2 (08:29→21:27)
[2019-08-10] MEDS: carvediloL 25 MG TABLET PO ×2 (08:30→21:28)
[2019-08-10] MEDS: CYANOCOBALAMIN 1,000 MCG TABLET 1000 MCG PO (08:30)
[2019-08-10] MEDS: FUROSEMIDE INJ 40 MG/4 ML VIAL 20 MG IV PUSH (08:32)
[2019-08-10] MEDS: TRAMADOL HCL 50 MG TABLET PO ×2 (08:38→21:28)
--- NOTE | 2019-08-10 10:18 | PM.PNCARD ---
Progress Note: A&P Assessment and Plan (1) Acute systolic (congestive) heart failure: Code(s): I50.21 - Acute systolic (congestive) heart failure Status: Acute Assessment and Plan: EF is worse than earlier this year. Likely ischemic in etiology. She also has significant valvular heart disease. Unfortunately she is frail with some underlying memory loss. Will need to treat medically and optimized as much as possible and evaluate for clinical response. Therefore I am going to increase her lisinopril to 40 mg daily. I am going to discontinue her metoprolol and start carvedilol 25 mg p.o. b.i.d.. Hold amlodipine for now to allow for these above medication changes. Agree with holding clopidogrel and given her fall risk and need for anticoagulation I am actually going to stop her aspirin at this point also. Possible stress test Sunday. Will initiate some diuresis in the form of furosemide 20 mg IV daily. Basic metabolic panel daily. If she does not have significant improvement of her pleural effusion, she should have a thoracentesis (2) Valvular heart disease: Code(s): I38 - Endocarditis, valve unspecified Status: Acute Assessment and Plan: significant aortic valvular disease in particular. Significant aortic insufficiency as well as moderate mitral regurgitation. Will try to treat medically as she is not a candidate for surgery at this point even if thought to be needed (3) Pulmonary embolism: Qualifiers: Acute cor pulmonale presence: unspecified Chronicity: acute Pulmonary embolism type: unspecified Qualified Code(s): I26.99 - Other pulmonary embolism without acute cor pulmonale Code(s): I26.99 - Other pulmonary embolism without acute cor pulmonale Status: Acute Assessment and Plan: on anticoagulation. Certainly a precarious situation given her significant fall risk low. (4) Falls: Code(s): W19.XXXA - Unspecified fall, initial encounter Status: Acute (5) Aneurysm, ascending aorta: Code(s): I71.2 - Thoracic aortic aneurysm, without rupture Status: Acute Assessment and Plan: optimize blood pressure control (6) Essential (primary) hypertension: Code(s): I10 - Essential (primary) hypertension Status: Acute Assessment and Plan: changes as above to her BP regimen. will add spironolactone 25 mg daily (7) Paroxysmal atrial fibrillation: Code(s): I48.0 - Paroxysmal atrial fibrillation Status: Chronic Assessment and Plan: in sinus rhythm at this point but has a chads Vasc score of 7 Subjective Date/time seen: 08/10/19 10:18 Interval history: Chief complaint: SOB date of 08/10/2019: feels better today. No chest pain, sob, edema Review of Systems Review of Systems: All systems reviewed & are unremarkable except as noted in HPI and below Constitutional: Constitutional: Denies excessive sweating and Reports weakness Eyes: Eyes: Denies blurry vision ENT: Denies epistaxis and Denies neck pain Cardiovascular: Cardiovascular: Denies chest pain and Reports dyspnea Respiratory: Respiratory: Reports dyspnea Gastrointestinal: Gastrointestinal: Denies abdominal pain Genitourinary: Genitourinary: Denies hematuria and Denies flank pain Musculoskeletal: Musculoskeletal: Denies back pain and Denies neck pain Integumentary/Breasts: Skin/Breast: Denies dry skin Neurologic: Denies confusion and Reports weakness Psychiatric: Psychiatric: Denies anxiety and Denies confusion Endocrine: Endocrine: Denies excessive sweating Hematologic/Lymphatic: Hematologic/Lymphatic: Denies easy bleeding and Denies easy bruising Allergic/Immunologic: Allergic/Immunologic: Denies GI upset with certain foods Exam Narrative: Exam Narrative: Alert appears frail but stated age Const: General: no acute distress; No confusion Orientation/consciousness: No confusion HENMT: General nose exam
--- NOTE | 2019-08-10 12:17 | PM.IMPN ---
Progress Note: A&P Assessment and Plan (1) Pulmonary embolism: Qualifiers: Acute cor pulmonale presence: unspecified Chronicity: acute Pulmonary embolism type: unspecified Qualified Code(s): I26.99 - Other pulmonary embolism without acute cor pulmonale Code(s): I26.99 - Other pulmonary embolism without acute cor pulmonale Status: Acute Assessment and Plan: -----the patient has had weakness and fatigue with some SOB starting 1 week ago. She has been hospitalized in March and April of this year. This increases her risk of DVT/PE. No hx of clots, hormonal therapy, or current smoking. She does have a history of falls and was a moderate assist with PT OT last stay. She failed SNF therapy a few months ago and did better at home with home health PT/OT. We will continue with Lovenox while hospitalized and likely discharge on Eliquis. She does have a higher risk of bleed and I do think she would benefit from SNF before going home. Family is going to discuss but sounds like they will likely take her home. EKG reviewed without any evidence of cor pulmonale. BNP elevated, echo reviewed. Aspirin and plavix both discontinued. (2) Pleural effusion: Code(s): J90 - Pleural effusion, not elsewhere classified Status: Acute Assessment and Plan: -----patient has moderate right pleural effusion and a small left. She had this back in March as well after a fall. It was tapped at that point which showed a hemothorax with no malignant cells or infection. CT does not show any signs of mass or cancer at this time. The patient's BNP is elevated, possible CHF. The patient does not have any shortness of breath and had a thoracentesis 2 months ago, I do not think this needs to be repeated at this time especially now that she is on anticoagulation therapy. This should be monitored (3) History of Clostridioides difficile colitis: Code(s): Z86.19 - Personal history of other infectious and parasitic diseases Status: Acute Assessment and Plan: -----patient has a history of C diff and some abdominal discomfort so PCP wants oral vanc through 08/19. She has no leukocytosis or abnormalities of her colon on CT. (4) Aneurysm, ascending aorta: Code(s): I71.2 - Thoracic aortic aneurysm, without rupture Status: Acute Assessment and Plan: -----4.3 ascending aortic aneurysm noted on CT. It looked back at her last CT from April which does not mention this. This will be followed outpatient and I will let her primary care physician know about this. (5) Hypertension: Qualifiers: Hypertension type: unspecified Qualified Code(s): I10 - Essential (primary) hypertension Code(s): I10 - Essential (primary) hypertension Status: Chronic Assessment and Plan: -----last blood pressure 162/73. Lisinopril increased 08/08. Cardiology has started lasix and coreg. Amlodipine stopped. (6) Hypokalemia: Code(s): E87.6 - Hypokalemia Status: Acute Assessment and Plan: -----labs from today are still pending. Will replace if needed (7) Anxiety: Code(s): F41.9 - Anxiety disorder, unspecified Status: Chronic Assessment and Plan: -----continue Zoloft (8) Restless leg: Code(s): G25.81 - Restless legs syndrome Status: Acute Assessment and Plan: -----continue Requip (9) Generalized weakness: Code(s): R53.1 - Weakness Status: Acute Assessment and Plan: -----patient was a moderate assist last time she was here in the hospital and still continues to complain of weakness. She is now on systemic oral anticoagulation and would benefit from PT and OT, possibly skilled. (10) Acute systolic (congestive) heart failure: Code(s): I50.21 - Acute systolic (congestive) heart failure Status: Acute Assessment and Plan: -----Noted on
[2019-08-10] MEDS: SPIRONOLACTONE 25 MG TABLET PO (12:32)
[2019-08-10 15:04] LABS: Hematocrit 32.7 % (37.0-47.0); Hemoglobin 10.4 g/dL (12.0-15.0)
[2019-08-10 15:16] LABS: Blood Urea Nitrogen 22 mg/dL (7-17); Calcium 9.2 mg/dL (8.4-10.2); Carbon Dioxide 31 mmol/L (22-30); Chloride 101 mmol/L (98-107); Estimated CRCL calculation 29 ml/min; Estimated Glomerular Filt Rate 53; Glucose 109 mg/dL (65-105); Potassium 3.6 mmol/L (3.4-5.0); Sodium 137 mmol/L (137-145)
[2019-08-10] MEDS: ENOXAPARIN 60 MG/0.6 ML SYRINGE 50 MG SUB-Q (16:33)
[2019-08-10] MEDS: LORAZEPAM 0.5 MG TABLET PO (21:28)
[2019-08-11] VITALS (8 sets, daily range): BP systolic 137–155; BP diastolic 65–77; PULSE 53–72; RESP 15–16; TEMP 36.4–37.1; O2SAT 95–96
[2019-08-11 05:46] LABS: Hematocrit 27.6 % (37.0-47.0)
[2019-08-11 06:00] LABS: Blood Urea Nitrogen 22 mg/dL (7-17); Calcium 8.7 mg/dL (8.4-10.2); Carbon Dioxide 29 mmol/L (22-30); Chloride 103 mmol/L (98-107); Estimated CRCL calculation 29 ml/min; Estimated Glomerular Filt Rate 53; Glucose 87 mg/dL (65-105); Magnesium 2.1 mg/dL (1.6-2.3); Phosphorus 3.6 mg/dL (2.5-4.5); Potassium 3.5 mmol/L (3.4-5.0); Sodium 135 mmol/L (137-145)
[2019-08-11] MEDS: LEVOTHYROXINE SODIUM 25 MCG TABLET PO (06:03)
[2019-08-11] MEDS: VANCOMYCIN ORAL 125 MG/2.5 ML SYRUP PO ×2 (06:03→15:02)
[2019-08-11] MEDS: SUCRALFATE SUSP 100 MG/ML 10 ML UDC 1000 MG PO ×2 (06:03→15:03)
[2019-08-11] MEDS: FUROSEMIDE INJ 40 MG/4 ML VIAL 20 MG IV PUSH (09:19)
--- NOTE | 2019-08-11 10:21 | EST_ITS ---
Patient Info Name: Shonda Wiggins Age: 84 years : 1935 Gender: Female Ht: 64 in Wt: 107 lbs BSA: 1.47 m2 Heart Rhythm: Sinus Rhythm Exam Date: 08/11/2019 1:39 PM Exam Location: [facility] Stress Patient Status: Inpatient Admit Date: 08/07/2019 Staff Ordering Physician: Pepper Winkler PA-C Attending Provider: Pepper Winkler PA-C Exercise Technologist: Elda Roth RDCS Nurse: Lachelle Smith, JOYCELYN, ACNP-BC Exam Type: CA stress annel w NM Study Info Indications I50.20 - Unspecified systolic (congestive) heart failure A regadenoson stress test was performed. Summary 1. Nondiagnostic ST/T wave changes with exercise. 2. Occasional PVCs and PACs. 3. Please correlate with nuclear medicine images, reported separately. Protocol: Lexiscan Stress ECG Details Stage: REST Duration (min): 2 min : 46 sec HR (bpm): 61 SBP (mmHg): 184 DBP (mmHg): 87 Stage: REST Duration (min): 10 min : 52 sec HR (bpm): 58 SBP (mmHg): 184 DBP (mmHg): 87 Stage: STAGE 1 Duration (min): 0 min : 59 sec HR (bpm): 57 SBP (mmHg): 183 DBP (mmHg): 85 Stage: RECOVERY Duration (min): 1 min : 0 sec HR (bpm): 72 SBP (mmHg): 183 DBP (mmHg): 85 Stage: RECOVERY Duration (min): 2 min : 0 sec HR (bpm): 71 SBP (mmHg): 170 DBP (mmHg): 84 Stage: RECOVERY Duration (min): 3 min : 0 sec HR (bpm): 72 SBP (mmHg): 176 DBP (mmHg): 86 Stage: RECOVERY Duration (min): 3 min : 8 sec HR (bpm): 69 SBP (mmHg): 176 DBP (mmHg): 86 Rest HR: 58 bpm Peak HR: 76 bpm Rest Sys BP: 184 mmHg Peak Sys BP: 183 mmHg Max Pred HR: 136 bpm % Max Pred HR: 56 % Target HR: 116 bpm Max RPP: 13,908 bpm*mmHg BP Response: Normal blood pressure response Termination Reason: Completed protocol Cardiac Symptoms: None Total Time: 1 min : 0 sec Rest Haas BP: 87 mmHg Peak Haas BP: 85 mmHg Total Dose: 0.4 mg Resting ECG Nonspecific ST abnormality Normal sinus rhythm. Stress ECG Nondiagnostic ST/T wave changes with exercise. Arrhythmias Occasional PVCs and PACs. Report Signatures
[2019-08-11 12:19] LABS: Hematocrit 28.9 % (37.0-47.0)
--- NOTE | 2019-08-11 14:03 | PCPTNOTE ---
The PT treatment was unable to be completed this afternoon due to patient out of room for procedure. Will continue per Plan of Care frequency and duration.
--- NOTE | 2019-08-11 14:54 | PC.NURSE ---
pt back to floor from nuclear medicine/stress test.
[2019-08-11] MEDS: TRAMADOL HCL 50 MG TABLET PO (14:55)
[2019-08-11] MEDS: carvediloL 25 MG TABLET PO (14:56)
[2019-08-11] MEDS: calcium polycarbophiL 625 MG TABLET PO (14:56)
[2019-08-11] MEDS: SERTRALINE HCL 50 MG TABLET 100 MG PO (14:56)
[2019-08-11] MEDS: SPIRONOLACTONE 25 MG TABLET PO (14:57)
[2019-08-11] MEDS: PANTOPRAZOLE SOD SESQUIHYDRATE 20 MG TAB PO (14:57)
[2019-08-11] MEDS: lisinopriL 20 MG TABLET 40 MG PO (14:57)
[2019-08-11] MEDS: THERAPEUTIC MULTIVITAMINS/MINERALS TAB (*BKC) 1 TABLET PO (14:58)
[2019-08-11] MEDS: CYANOCOBALAMIN 1,000 MCG TABLET 1000 MCG PO (14:58)
--- NOTE | 2019-08-11 15:02 | PCOTNOTE ---
Patient unavailable when attempted at 13:15 to see for skilled OT - patient in procedure. Will continue plan of care tomorrow.
--- NOTE | 2019-08-11 15:16 | PM.PNCARD ---
Progress Note: A&P Assessment and Plan (1) Acute systolic (congestive) heart failure: Code(s): I50.21 - Acute systolic (congestive) heart failure Status: Acute Assessment and Plan: EF is worse than earlier this year. Likely ischemic in etiology. She also has significant valvular heart disease. Unfortunately she is frail with some underlying memory loss. Plan was to treat medically and optimized as much as possible and evaluate for clinical response. Continue lisinopril to 40 mg daily, carvedilol 25 mg p.o. b.i.d.. Hold amlodipine for now to allow for these above medication changes. Evaluate need for additional BP control as outpatient Continue to hold clopidogrel and given her fall risk and need for anticoagulation aspirin also stopped. Lexiscan today revealed small area of mild infarct involving mid to basal inferolateral segments of left ventricle. No ischemia Continue gentle diuresis in the form of furosemide 20 mg Sunday, Sunday, Sunday Basic metabolic in one week. CXR in 2 weeks. If she does not have significant improvement of her pleural effusion, she should have a thoracentesis (2) Valvular heart disease: Code(s): I38 - Endocarditis, valve unspecified Status: Acute Assessment and Plan: Significant aortic valvular disease in particular. Significant aortic insufficiency as well as moderate mitral regurgitation. Continue to treat medically as she is not a candidate for surgery at this point even if thought to be needed (3) Pulmonary embolism: Qualifiers: Acute cor pulmonale presence: unspecified Chronicity: acute Pulmonary embolism type: unspecified Qualified Code(s): I26.99 - Other pulmonary embolism without acute cor pulmonale Code(s): I26.99 - Other pulmonary embolism without acute cor pulmonale Status: Acute Assessment and Plan: On anticoagulation. Certainly a precarious situation given her significant fall risk now . (4) Falls: Code(s): W19.XXXA - Unspecified fall, initial encounter Status: Acute Assessment and Plan: As above (5) Aneurysm, ascending aorta: Code(s): I71.2 - Thoracic aortic aneurysm, without rupture Status: Acute Assessment and Plan: Optimize blood pressure control (6) Essential (primary) hypertension: Code(s): I10 - Essential (primary) hypertension Status: Acute Assessment and Plan: Changes as above to her BP regimen. Continue spironolactone 25 mg daily Blood pressure improved but still not optimal. (7) Paroxysmal atrial fibrillation: Code(s): I48.0 - Paroxysmal atrial fibrillation Status: Chronic Assessment and Plan: In sinus rhythm at this point but has a CHADs Vasc score of 7 Additional Plan OK to discharge from a cardiac standpoint See discharge instructions for follow up Plan discussed with Dr Gray 0440 08/11/2019 Time Spent With Patient Time with patient: 15 - 25 minutes Subjective Date/time seen: 08/11/19 13:45 Seen in stress lab Interval history: Follow-up for: SOB, acute systolic heart failure, valvular heart disease, paroxysmal atrial fibrillation, pulmonary embolus Date of service: 08/11/2019 Subjective: Feels cold. Denied chest discomfort or shortness of breath. Review of Systems Constitutional: Constitutional: Denies excessive sweating and Reports weakness Eyes: Eyes: Denies blurry vision ENT: Denies epistaxis and Denies neck pain Cardiovascular: Cardiovascular: Denies chest pain and Denies dyspnea Respiratory: Respiratory: Denies dyspnea Gastrointestinal: Gastrointestinal: Denies abdominal pain Genitourinary: Genitourinary: Denies hematuria and Denies flank pain Musculoskeletal: Musculoskeletal: Denies
[2019-08-11] MEDS: ENOXAPARIN 60 MG/0.6 ML SYRINGE 50 MG SUB-Q (16:10)
--- NOTE | 2019-08-11 16:20 | PM.DS ---
DS: Admitting Diagnosis Admitting Diagnosis Admitting Diagnosis: Other pulmonary embolism without acute cor pulmonale DS: Discharge Diagnosis Discharge Diagnosis (1) Pulmonary embolism: Qualifiers: Acute cor pulmonale presence: unspecified Chronicity: acute Pulmonary embolism type: unspecified Qualified Code(s): I26.99 - Other pulmonary embolism without acute cor pulmonale Code(s): I26.99 - Other pulmonary embolism without acute cor pulmonale Status: Acute (2) Pleural effusion: Code(s): J90 - Pleural effusion, not elsewhere classified Status: Acute (3) History of Clostridioides difficile colitis: Code(s): Z86.19 - Personal history of other infectious and parasitic diseases Status: Acute (4) Aneurysm, ascending aorta: Code(s): I71.2 - Thoracic aortic aneurysm, without rupture Status: Acute (5) Hypertension: Qualifiers: Hypertension type: unspecified Qualified Code(s): I10 - Essential (primary) hypertension Code(s): I10 - Essential (primary) hypertension Status: Chronic (6) Hypokalemia: Code(s): E87.6 - Hypokalemia Status: Acute (7) Anxiety: Code(s): F41.9 - Anxiety disorder, unspecified Status: Chronic (8) Restless leg: Code(s): G25.81 - Restless legs syndrome Status: Acute (9) Generalized weakness: Code(s): R53.1 - Weakness Status: Acute (10) Acute systolic (congestive) heart failure: Code(s): I50.21 - Acute systolic (congestive) heart failure Status: Acute (11) Valvular heart disease: Code(s): I38 - Endocarditis, valve unspecified Status: Acute (12) UTI (urinary tract infection): Code(s): N39.0 - Urinary tract infection, site not specified Status: Acute (13) Elevated TSH: Code(s): R79.89 - Other specified abnormal findings of blood chemistry Status: Acute Assessment and Plan: follow up with pcp with tsh in 6 weeks. DS: Summary Hospital Course Reason for hospitalization: Outpatient CT positive for PE, weakness Hospital Course: Patient is an 84-year-old female who presented emergency room due to an outpatient scan being positive for PE, weakness, and abdominal pain. Vitals in the ER were temperature 36.7 degree C, pulse 68, respiratory rate 18, blood pressure 173/78, pulse ox 96 on room air. UA slightly suspicious for UTI. Moderate-sized right and small left pleural effusion which were also there back in April as she fell and had a hemothorax. Workup was done then which did not show any cancer or infection. This was thought to be likely due to residual from that as well as her new systolic CHF that was diagnosed this stay as well. She was not hypoxic or SOB, and on new anticoagulation. Pleurocentesis seemed more risky than any benefit at this point. It is likely from her CHF as well. She was placed on diuretic therapy and she is going to get a follow-up chest x-ray with Cardiology to see the improvement in 2 weeks. Echo showed an EF of 40% and because of her ongoing abdominal pain and weakness she was given a stress test day of discharge which showed an old infarct but no current ischemia. Cardiology recommended medical management and her medications were adjusted as shown below. Her UA came back positive for Proteus 50,000- [id number] and because of her abdominal pain, the UTI was treated with cefdinir. As for her PE, her hemoglobin remained stable on Lovenox and at discharge she was transitioned to Eliquis. Her CT also shows an aneurysm that needs to be followed yearly and I talked to her daughter about this. Her TSH was 18, but her T4 was normal. 25 mcg of levothyroxine was started and she should follow-up with her primary care physician with this. Overall, the patient felt improvement the day of discharge and worked with therapy and home health was set up. The family and patient did not want her to return to SNF because
--- NOTE | 2019-08-14 09:23 | PC.NURSE ---
Patient's daughter called with questions r/t return of issues and questions regarding medications prescribed at discharge versus medications that patient received here. Med-list was reviewed and it was questioned why the carafate was not continued at discharge if it was being administered here along with the protonix, for which a prescription was received. Daughter then states that patient has gained 3lbs since Sunday. RN recommended follow up with patient's primary physician to address concerns.
== END 2019-08-11 17:56 | disposition home health service (06) ==
LOC: ANHED 23:35 → ANH2MED 08-08 03:09
PROVIDERS: Internal Medicine Cardiovascular Disease; Admitting Provider Internal Medicine; Emergency Provider Emergency Medicine; PCP Family Medicine; Visit Provider Physician Assistant
DX: I26.99 Other pulmonary embolism without acute cor pulmonale (principal); I71.2 Thoracic aortic aneurysm, without rupture; I11.0 Hypertensive heart disease with heart failure; I50.21 Acute systolic (congestive) heart failure; I48.0 Paroxysmal atrial fibrillation; I38 Endocarditis, valve unspecified; N39.0 Urinary tract infection, site not specified; R79.89 Other specified abnormal findings of blood chemistry; E87.6 Hypokalemia; F41.9 Anxiety disorder, unspecified; G25.81 Restless legs syndrome; Z79.82 Long term (current) use of aspirin; Z79.899 Other long term (current) drug therapy; Z86.19 Personal history of other infectious and parasitic diseases; Z86.73 Personal history of transient ischemic attack (TIA), and cerebral infarction without residual deficits; Z87.891 Personal history of nicotine dependence; Z91.81 History of falling; Z96.653 Presence of artificial knee joint, bilateral
CPT/HCPCS: 36415; 71046; 71260; 74177; 78452; 80048; 80053; 81001; 82150; 83690; 83735; 83880; 84100; 84439; 84443; 84480; 84484; 85014; 85018; 85025; 85027; 85610; 85730; 87077; 87086; 87088; 87186; 93005; 93017; 93306; 93970; 96365; 96372; 96375; 96376; 97110; 97116; 97161; 97165; 97530; 99285; A9270; A9502; G0378; J0696; J1650; J1940; J2785; Q9967

== ENCOUNTER 2019-08-22 09:35 | Inpatient (IN) | payer MEDICARE, SELFPAY ==
[2019-08-22] VITALS (44 sets, daily range): BP systolic 145–199; BP diastolic 75–121; PULSE 52–82; RESP 12–38; TEMP 36.1–37; O2SAT 88–100; BMI 19.8
--- NOTE | ~2019-08-22 | XR_ITS ---
EXAMINATION: XR chest 2V EXAM DATE: 08/22/2019 10:43 INDICATION: Dyspnea, symptoms one month. TECHNIQUE: Frontal and lateral projections of the chest obtained and reviewed. Comparison is made to prior examination from 08/10/2019. Correlation was made with chest CT from 08/07/2019. FINDINGS: Again there is moderate right pleural effusion, and small left pleural effusion. There is adjacent right lower lobe airspace disease at least partly atelectasis. Pneumonia not excludable. Car diomegaly. There is tortuosity of the aorta. Severe thoracolumbar scoliosis. There are old right rib fractures. Probably no significant interval change accounting for differences in technique. IMPRESSION: 1. Persistent moderate right, small pleural effusions with adjacent atelectasis. 2. Superimposed right lower lobe pneumonia not excludable. Reviewed, dictated and finalized at location B. IMPRESSION: 1. Persistent moderate right, small pleural effusions with adjacent atelectasi s. 2. Superimposed right lower lobe pneumonia not excludable.
--- NOTE | 2019-08-22 10:06 | ED.SOB ---
HPI - SOB/Dyspnea General Chief Complaint: Shortness of Breath/Dyspnea Stated Complaint: SOB/WEAK Time Seen by Provider: 08/22/19 10:05 Source: patient and family Mode of arrival: EMS Limitations: dementia History of Present Illness HPI Narrative: Patient is an 84-year-old female with a recent history of PE, on Eliquis, pleural effusions, CHF who presents for evaluation of shortness of breath. Patient's daughter provides most of the history. Daughter states that her mother has been intermittently moaning and complaining of shortness of breath this morning. At times, she felt like her pulse was increased in the 90s, and that would be more abnormal for the patient as it typically seems to run in the 60s to 70s. Patient's daughter states that she has not had a cough or fever and at times appears completely normal without any symptoms, and then the next moment will begin to complain of difficulty breathing. No recent nausea or vomiting. Otherwise, patient is acting at baseline per family. Patient does have a history of dementia and often details are difficult to obtain. Patient used to reside at [facility], but since coronavirus has been staying at home with family. Patient only uses oxygen around 1 L at night, otherwise is not typically on any oxygen. Patient does have a history of pleural effusion requiring thoracentesis and drainage once it became symptomatic a few weeks ago per her daughter. Related Data Home Medications Medication Instructions Recorded Confirmed One-A-Day Womens Formula 1 tablet PO DAILY 04/13/19 08/22/19 calcium polycarbophil [FiberCon] 625 mg PO BID 04/13/19 08/22/19 cyanocobalamin (vitamin B-12) 1,000 mcg PO DAILY 04/13/19 08/22/19 [Vitamin B-12] ropinirole 1 mg PO Q12H 08/07/19 08/22/19 sertraline 100 mg PO Q12H 08/07/19 08/22/19 Allergies Allergy/AdvReac Type Severity Reaction Status Date / Time Penicillins Allergy Unknown Unknown Verified 08/18/19 13:59 Review of Systems Review of Systems: Narrative: CONSTITUTIONAL: Denies fever, chills, or sweats. ENT: Denies rhinorrhea, congestion, sore throat, or otalgia. CARDIOVASCULAR: Denies chest pain RESPIRATORY: Denies cough and denies current shortness of breath GASTROINTESTINAL: Denies abdominal pain, nausea, vomiting, or diarrhea. SKIN: Denies rash or itching. MUSCULOSKELETAL: Denies back pain, joint pain PMFSH Past Medical History Medical History Abdominal discomfort Anxiety Arthritis Atrial fibrillation, new onset Back pain Bakers cyst Colon polyps Depression Dysphagia Femur fracture, right Non operative Fractures ankle, foot Hemorrhoids internal History of Clostridioides difficile colitis History of rectal polyps Hypercalcemia Hypertension Hypoxia Kidney tumor rt partial nephrectomy, patient reports she had a small cancer Leukemia Patient denies Melena Neuropathy Osteoporosis Ovarian cancer rt Ovarian cyst Parathyroid tumor Partial parathyroidectomy Peripheral neuropathy Pleural effusion Sleep apnea Intolerant of CPAP TIA (transient ischemic attack) Valvular heart disease Weight loss Surgical History Surgical History H/O arthroscopic knee surgery lt H/O local excision of skin lesion lt hand H/O oophorectomy bilateral History of nephrectomy rt partial History of total bilateral knee replacement (TKR) Hx of colonoscopy Family History Family History Mother Hypertension Cerebrovascular accident Father Malignant neoplasm of prostate Family history of coronary artery disease Family history of congestive heart failure Grandparent Diabetes mellitus Other Family history of cardiovascular disease Social History Social History Social History: Pt smoked occasionally but no long
--- NOTE | 2019-08-22 10:21 | PC.NURSE ---
RESPIRATORY CURRENTLY DRAWING THEIR BLOOD SAMPLE ON PT, WILL RETURN WHEN THEY ARE DONE
--- NOTE | 2019-08-22 10:27 | ECG_ITS ---
Measurements Intervals [place] Rate: 68 P: SC: 0 QRS: -15 QRSD: 102 T: 81 QT: 437 QTc: 465 Interpretive Statements SINUS RHYTHM BORDERLINE R WAVE PROGRESSION, ANTERIOR LEADS BORDERLINE ST ABNORMALITY- HIGH LATERAL LEADS BASELINE ARTIFACT- V1-V6 BORDERLINE ECG Electronically Signed On 08-22-2019 11:37:01 CDT by Ricardo Childers D.O.
[2019-08-22 10:28] LABS: Alveolar/Arterial O2 Gradient 79.3 mmHg; Base Excess ABG 2.7 mEq/l (+/-2.0); Fractional Inspired Oxygen 28 %; HCO3 ABG 25.8 mEq/l (22.0-26.0); Oxygen Content ABG 14.5 %vol (16.0-22.0); Oxygen Saturation ABG 96.6 % (95.0-100.0); Oxyhemoglobin 94.6 % THb (90.0-100.0); PCO2 ABG 34.6 mmHg (35.0-45.0); PO2 ABG 79.5 mmHg (80.0-100.0); PO2 FiO2 Ratio Arterial Blood 2.84 %; Total Hemoglobin 10.8 g/dL (12.0-18.0); pH ABG 7.491 (7.350-7.450)
[2019-08-22 10:30] LABS: Device NASAL CANNULA; Modified Allen's Test Pass; Site Drawn LEFT RADIAL
--- NOTE | 2019-08-22 10:39 | PC.NURSE ---
pt gone from room, unable to obtain blood
[2019-08-22 11:50] LABS: Alanine Aminotransferase 15 U/L (4-35); Albumin Level 3.3 g/dL (3.5-5.1); Alkaline Phosphatase 67 U/L (38-126); Aspartate Amino Transferase 28 U/L (14-36); Bilirubin,Total 0.5 mg/dL (0.2-1.3); Blood Urea Nitrogen 23 mg/dL (7-17); Calcium 9.4 mg/dL (8.4-10.2); Carbon Dioxide 28 mmol/L (22-30); Chloride 107 mmol/L (98-107); Estimated Glomerular Filt Rate 60; Glucose 98 mg/dL (65-105); Potassium 3.3 mmol/L (3.4-5.0); Sodium 139 mmol/L (137-145)
[2019-08-22 12:02] LABS: NT Pro B Type Natriuretic Pept 13600 PG/ML (5-100); Troponin I 0.044 ng/mL (0.000-0.034)
[2019-08-22 12:13] LABS: Basophils Percent Auto 0.4 % (0.2-1.2); Eosinophils Absolute Auto 0.1 K/mm3 (0-0.3); Eosinophils Percent Auto 2.2 % (0-4.4); Hematocrit 30.2 % (37.0-47.0); Hemoglobin 9.9 g/dL (12.0-15.0); Immature Granulocyte Absolute 0.01 K/mm3 (0.00-0.031); Immature Granulocyte Percent A 0.2 % (0-0.5); Lymphocytes Absolute Auto 1.06 K/mm3 (0.9-3.2); Lymphocytes Percent Auto 20.9 % (18.3-44.2); Mean Corpuscular HGB Conc 32.8 g/dl (32-36); Mean Corpuscular Hemoglobin 28.5 pg (26-34); Mean Platelet Volume 11.2 fl (7.4-10.4); Monocytes Absolute Auto 0.2 K/mm3 (0.1-0.6); Monocytes Percent Auto 4.1 % (2.6-8.5); Neutrophils Absolute Auto 3.7 K/mm3 (1.3-6.7); Neutrophils Percent Auto 72.2 % (45.5-73.1); Platelet Count Result 174 k/mm3 (150-375); Red Blood Count 3.47 M/mm3 (4.2-5.4); Red Cell Distribution Width 17.9 % (11.5-14.5); White Blood Count 5.1 K/mm3 (4.5-10.0)
[2019-08-22 12:34] LABS: Partial Thromboplastin Time 31.4 SECONDS (22.3-36.8)
[2019-08-22 12:54] LABS: INR 1.2; Prothrombin Time 14.7 Seconds (11.1-14.7)
--- NOTE | 2019-08-22 15:37 | ADMIMU ---
This patient, Shonda Wiggins, was admitted to IMU status, and placed in Intensive Care Unit-1. Patient/family oriented to hospital policies and general routines including ID bracelet, bed and alarms, visiting hours, pain management, procedures, bathroom and other care routines, personal items, smoking policy, room service/diet, and visiting hours. Valuables list has been completed. Information on how to activate the Rapid Response Team has been discussed. Patient/Family are encouraged to report perceived risks to care and to ask questions if they do not understand what they are told or what they should do.
--- NOTE | 2019-08-22 18:00 | PM.IMHP ---
H&P: HPI History of Present Illness Chief complaint: Shortness of breath. Narrative: Shonda Wiggins is an 84-year-old female with multiple medical problems including paroxysmal atrial fibrillation, valvular heart disease, systolic congestive heart failure, obstructive sleep apnea, hypertension, and several other comorbidities who presented to the emergency department earlier this morning via EMS from home for evaluation of shortness of breath. She was recently admitted to this hospital from 08/06-08/11/2019 after she was found to have a right lower lobe pulmonary emboli on CT of the chest/abdomen/pelvis which was performed for evaluation of abdominal pain and to assess pleural effusions. There were no findings to correlate for her complaints of abdominal pain. Moderate size right and small left pleural effusions were noted, essentially stable from imaging obtained in April 2019. Echocardiogram at that time showed a mildly reduced left ventricular systolic function with ejection fraction estimated at 40-45% with wall motion abnormalities, left atrial enlargement, grade 1 diastolic dysfunction, moderate to severe aortic valve regurgitation, moderate pulmonic regurgitation, and moderate mitral valve regurgitation as well as mild pulmonary hypertension. Lexiscan stress test on 08/11/2019 showed a small area of mild infarct involving the mid to basal inferolateral segments of the left ventricle and inferior lateral hypokinesis with left ventricular ejection fraction measuring 40%. She was discharged on Eliquis and was discharged back to her daughter's home, where she has been staying during the COVID pandemic (she was previously [place]). She has p.r.n. oxygen at home and she has frequently short of breath with exertion. This morning she was complaining of severe shortness of breath and it sounds as though she was almost hyperventilating, and EMS was summoned. On their arrival, her SpO2 was 91% on room air and she was placed on 4 liters nasal cannula. Chest x-ray today showed persistent pleural effusions (it is noted that she had a thoracentesis in March 2019 for hemothorax attributed to fall and rib fractures). There was some question of possible superimposed pneumonia in the right lower lobe, which prompted testing for SARS-CoV-2 yet the patient has no complaints of fever, chills, sweats, or cough. Troponin and BNP were both elevated and she is being admitted in this setting. At the time my evaluation she seems comfortable and her biggest complaint is of intermittent abdominal discomfort that has been ongoing for several months. She has a difficult time describing this discomfort, but she indicates that she has random feelings of ?flip-flopping? diffusely throughout her abdomen. She also notes early satiety, decreased appetite, and about a 20 pound weight loss since the beginning of the year. She has been given prescriptions for a PPI and Carafate, but she does not think those are providing her with much benefit. She has also been treated with p.o. vancomycin for the last month for possible C diff, but she reports to me that she has not had diarrhea and she had a normal bowel movement today. We did discuss the possibility that some of her symptoms may be related to anxiety, for which she replied ?I am wondering if some of them are.? She denies fever, chills, sweats, sinus congestion, otalgia, odynophagia, chest pain, pleuritic pain, palpitations, orthopnea, PND, and lower extremity edema. She also denies vomiting, melena, and hematochezia. Review of Systems Review of Systems: Narrative: All systems were reviewed and are unremarkable except as noted in HPI. [facility] Past Medical History Medical History (Updated 08/22/19 @ 23:17 by Kimberly Granados PA-C) Anemia Arthritis Ascending aortic aneurysm Measuring 4.[address] in July 2019. Bakers cyst Chronic respiratory failure with hypoxia Oxygen p.r.n. at home. Colon polyps Combined systolic
[2019-08-22 18:30] LABS: Troponin I 0.052 ng/mL (0.000-0.034)
[2019-08-22 20:16] LABS: Troponin I 0.053 ng/mL (0.000-0.034)
[2019-08-22 20:39] LABS: Potassium 3.2 mmol/L (3.4-5.0)
[2019-08-22] MEDS: APIXABAN 2.5 MG TABLET PO (20:50)
[2019-08-22] MEDS: carvediloL 25 MG TABLET PO (20:51)
[2019-08-22] MEDS: ACETAMINOPHEN 325 MG TABLET 650 MG PO (20:51)
[2019-08-22] MEDS: rOPINIRole HCL 1 MG TABLET PO (20:52)
[2019-08-22] MEDS: SERTRALINE HCL 50 MG TABLET 100 MG PO (20:52)
[2019-08-22] MEDS: LORAZEPAM 0.5 MG TABLET PO (20:54)
[2019-08-22 20:58] LABS: SARS-CoV-2 RNA PCR Negative
[2019-08-22] MEDS: POTASSIUM CHLORIDE 20 MEQ TABLET 40 MEQ PO (21:01)
[2019-08-23] VITALS (20 sets, daily range): BP systolic 121–171; BP diastolic 59–87; PULSE 49–72; RESP 12–23; TEMP 35.8–36.4; O2SAT 68–100
[2019-08-23] MEDS: traMADol HCL 50 MG TABLET PO ×3 (00:06→23:04)
[2019-08-23 03:58] LABS: Hematocrit 29.4 % (37.0-47.0); Hemoglobin 9.5 g/dL (12.0-15.0); Mean Corpuscular HGB Conc 32.3 g/dl (32-36); Mean Corpuscular Hemoglobin 28.8 pg (26-34); Mean Corpuscular Volume 89.1 fl (80-100); Mean Platelet Volume 10.7 fl (7.4-10.4); Platelet Count Result 154 k/mm3 (150-375); Red Cell Distribution Width 17.8 % (11.5-14.5)
[2019-08-23 04:20] LABS: Blood Urea Nitrogen 23 mg/dL (7-17); Calcium 9.3 mg/dL (8.4-10.2); Carbon Dioxide 29 mmol/L (22-30); Chloride 108 mmol/L (98-107); Estimated CRCL calculation 31 ml/min; Estimated Glomerular Filt Rate 53; Glucose 97 mg/dL (65-105); Magnesium 2.1 mg/dL (1.6-2.3); Potassium 3.7 mmol/L (3.4-5.0); Sodium 140 mmol/L (137-145)
[2019-08-23] MEDS: lisinopriL 20 MG TABLET 40 MG PO (05:37)
[2019-08-23] MEDS: FUROSEMIDE INJ 40 MG/4 ML VIAL 20 MG IV PUSH (05:37)
[2019-08-23] MEDS: LEVOTHYROXINE SODIUM 25 MCG TABLET PO (05:38)
[2019-08-23] MEDS: SUCRALFATE 1 GM TABLET PO ×2 (05:38→16:41)
--- NOTE | 2019-08-23 06:35 | PC.NURSE ---
This patient, Shonda Wiggins, was received from ICU 1 on 08/23/19 at 0615. Personal belongings list checked and signed. Patient oriented to unit policies and routines
--- NOTE | 2019-08-23 07:10 | PC.NURSE ---
This patient, Shonda Wiggins, was transferred to [facility] on 08/23/19 at 0615. Personal belongings sent with patient. Belongings list checked and signed with receiving RN. Report given to Mei JARVIS. Appropriate documentation sent with patient.
[2019-08-23 07:29] LABS: Free T4 Free Thyroxine Reflex 0.87 ng/dL (0.78-2.19)
[2019-08-23] MEDS: ACETAMINOPHEN 325 MG TABLET 650 MG PO ×2 (08:00→20:27)
[2019-08-23 08:12] LABS: IFOB Positive Control Positive; Immunochemical Fecal Occult Bl Positive (N)
[2019-08-23 08:16] LABS: Total Triiodothyronine (T3) 0.66 NG/ML (0.97-1.69)
[2019-08-23] MEDS: APIXABAN 2.5 MG TABLET PO ×2 (09:42→16:41)
[2019-08-23] MEDS: carvediloL 25 MG TABLET PO ×2 (09:42→20:28)
[2019-08-23] MEDS: rOPINIRole HCL 1 MG TABLET PO ×2 (09:42→20:28)
[2019-08-23] MEDS: SERTRALINE HCL 50 MG TABLET 100 MG PO ×2 (09:42→20:27)
[2019-08-23] MEDS: PANTOPRAZOLE SOD SESQUIHYDRATE 20 MG TAB PO (09:42)
[2019-08-23] MEDS: CYANOCOBALAMIN 1,000 MCG TABLET 1000 MCG PO (09:43)
[2019-08-23] MEDS: SPIRONOLACTONE 25 MG TABLET PO (09:43)
[2019-08-23] MEDS: THERAPEUTIC MULTIVITAMINS/MINERALS TAB (*BKC) 1 TABLET PO (09:43)
--- NOTE | 2019-08-23 18:10 | PM.IMPN ---
Progress Note: A&P Assessment and Plan (1) Shortness of breath: Code(s): R06.02 - Shortness of breath Status: Acute Assessment and Plan: COVID negative. CXR showng no significant changes. Recently diagnosed with PE and currently on Eliquis. Troponin mildly elevated but unclear how this plays a part (if any) in her symptoms of SOB. She has had extensive cardiac w/u recently. Anxiety is a possibility as well. Monitor on tele. If remains stable, plan discharge tomorrow. Doubtful the elevated TSH is causing this issue (2) Elevated troponin: Code(s): R79.89 - Other specified abnormal findings of blood chemistry Status: Acute Assessment and Plan: Troponin elevated on admission and has climbed to 0.053. No complaints of chest pain. EKG showing no acute findings. Lexiscan stress 08/11/19 showing small area of mild infarct (fixed) involving mid to basal inferolateral segments of left ventricle. There was also inferolateral hypokinesis with left ventricular ejection fraction measuring 40%. Echo in July showing EF 40-45%DD Grade I, moderate-severe AR, moderate MR. Suspect Troponin leak related to above. No plans for further workup. (3) Hypothyroidism: Code(s): E03.9 - Hypothyroidism, unspecified Status: Acute Assessment and Plan: TSH was elevated earlier this month to 18 with FT4 1.12. Synthroid 25mcg started. TSH now at 22 and FT4 lower at 0.87. It has only been 2 weeks but would expect some improvement. Will advance Sythroid to 50mcg. Will need repeat labs in 4-6 weeks. (4) Bilateral pleural effusion: Code(s): J90 - Pleural effusion, not elsewhere classified Status: Acute Assessment and Plan: As above, these are stable compared imaging in April and early July 2019. Do not feel thoracentesis is needed at this time. (5) Combined systolic and diastolic congestive heart failure: Code(s): I50.40 - Unspecified combined systolic (congestive) and diastolic (congestive) heart failure Status: Acute Assessment and Plan: Patient with chronic bilateral effusions that appear to be stable. Only trace edema on exam. BNP is markedly elevated when compared to March. Lasix IV x1 given and lizzie has been resumed on her home lasix dose. Will monitor for now. (6) Hypertension: Qualifiers: Hypertension type: unspecified Qualified Code(s): I10 - Essential (primary) hypertension Code(s): I10 - Essential (primary) hypertension Status: Chronic Assessment and Plan: Blood pressure reviewed on 08/23/2019. Blood pressure better today. Lisinopril and Coreg have been resumed. Continue to monitor for now. (7) Abdominal discomfort: Code(s): R10.9 - Unspecified abdominal pain Status: Acute Assessment and Plan: This is been an ongoing problem for the patient. She had a CT A/P in March showing gallstones but otherwise no acute findings. She has been started on Protonix and Carafate without much benefit. She has also been on p.o. vancomycin for about a month despite not having diarrhea. Consider gastroparesis. Consider functional due to anxiety. Given her weight loss and early satiety, she may benefit from consultation with a car supervisor on an outpatient basis. (8) Depression with anxiety: Code(s): F41.8 - Other specified anxiety disorders Status: Acute Assessment and Plan: Mood stable. Continue sertraline and Ativan at bedtime. (9) Anemia: Code(s): D64.9 - Anemia, unspecified Status: Acute Assessment and Plan: Hgb 9.9 on admission. Mostly in the 10-11 range. Stool guaiac positive in March and again here now. Iron studies in Mar more consistent with anemia of chronic disease. Follow HH. Consider GI consult. (10) Hypokalemia: Code(s): E87.6 - Hypokalemia Status: Acute Assessment and Plan:
[2019-08-23] MEDS: LORAZEPAM 0.5 MG TABLET PO (20:28)
[2019-08-24] VITALS (11 sets, daily range): BP systolic 142–185; BP diastolic 77–86; PULSE 48–68; RESP 16–20; TEMP 35.7–35.9; O2SAT 96–100
[2019-08-24 04:14] LABS: Hematocrit 28.9 % (37.0-47.0); Hemoglobin 9.4 g/dL (12.0-15.0); Mean Corpuscular HGB Conc 32.5 g/dl (32-36); Mean Corpuscular Hemoglobin 28.7 pg (26-34); Mean Corpuscular Volume 88.4 fl (80-100); Mean Platelet Volume 11.5 fl (7.4-10.4); Platelet Count Result 158 k/mm3 (150-375); Red Blood Count 3.27 M/mm3 (4.2-5.4); Red Cell Distribution Width 17.6 % (11.5-14.5); White Blood Count 4.3 K/mm3 (4.5-10.0)
[2019-08-24 04:27] LABS: Blood Urea Nitrogen 24 mg/dL (7-17); Calcium 9.1 mg/dL (8.4-10.2); Carbon Dioxide 29 mmol/L (22-30); Chloride 105 mmol/L (98-107); Estimated CRCL calculation 30 ml/min; Estimated Glomerular Filt Rate 53; Glucose 96 mg/dL (65-105); Potassium 3.4 mmol/L (3.4-5.0); Sodium 136 mmol/L (137-145)
[2019-08-24] MEDS: SUCRALFATE 1 GM TABLET PO ×2 (06:00→16:04)
[2019-08-24] MEDS: LEVOTHYROXINE SODIUM 50 MCG TABLET PO (06:01)
[2019-08-24] MEDS: THERAPEUTIC MULTIVITAMINS/MINERALS TAB (*BKC) 1 TABLET PO (08:23)
[2019-08-24] MEDS: rOPINIRole HCL 1 MG TABLET PO (08:23)
[2019-08-24] MEDS: lisinopriL 20 MG TABLET 40 MG PO (08:23)
[2019-08-24] MEDS: SPIRONOLACTONE 25 MG TABLET PO (08:23)
[2019-08-24] MEDS: PANTOPRAZOLE SOD SESQUIHYDRATE 20 MG TAB PO (08:23)
[2019-08-24] MEDS: calcium polycarbophiL 625 MG TABLET PO ×2 (08:23→16:04)
[2019-08-24] MEDS: carvediloL 25 MG TABLET PO (08:23)
[2019-08-24] MEDS: SERTRALINE HCL 50 MG TABLET 100 MG PO (08:23)
[2019-08-24] MEDS: CYANOCOBALAMIN 1,000 MCG TABLET 1000 MCG PO (08:23)
[2019-08-24] MEDS: APIXABAN 2.5 MG TABLET PO ×2 (08:24→16:04)
[2019-08-24] MEDS: traMADol HCL 50 MG TABLET PO (12:00)
--- NOTE | 2019-08-24 12:32 | PM.DS ---
DS: Admitting Diagnosis Admitting Diagnosis Admitting Diagnosis: Shortness of breath DS: Discharge Diagnosis Discharge Diagnosis (1) Shortness of breath: Code(s): R06.02 - Shortness of breath Status: Acute Assessment and Plan: COVID negative. CXR showng no significant changes. Recently diagnosed with PE and currently on Eliquis. Troponin mildly elevated but unclear how this plays a part (if any) in her symptoms of SOB. She has had extensive cardiac w/u recently. Anxiety is a possibility as well. She was monitored on telemetry without issue. (2) Elevated troponin: Code(s): R79.89 - Other specified abnormal findings of blood chemistry Status: Acute Assessment and Plan: Troponin elevated on admission and has climbed to 0.053. No complaints of chest pain. EKG showing no acute findings. Lexiscan stress 08/11/19 showing small area of mild infarct (fixed) involving mid to basal inferolateral segments of left ventricle. There was also inferolateral hypokinesis with left ventricular ejection fraction measuring 40%. Echo in July showing EF 40-45%DD Grade I, moderate-severe AR, moderate MR. Suspect Troponin leak related to above. No plans for further workup. (3) Hypothyroidism: Code(s): E03.9 - Hypothyroidism, unspecified Status: Acute Assessment and Plan: TSH was elevated earlier this month to 18 with FT4 1.12. Synthroid 25mcg started. TSH now at 22 and FT4 lower at 0.87. It has only been 2 weeks but would expect some improvement. Will advance Sythroid to 50mcg. Will need repeat labs in 4-6 weeks. (4) Bilateral pleural effusion: Code(s): J90 - Pleural effusion, not elsewhere classified Status: Acute Assessment and Plan: As above, these are stable compared imaging in April and early July 2019. Do not feel thoracentesis is needed at this time. (5) Combined systolic and diastolic congestive heart failure: Code(s): I50.40 - Unspecified combined systolic (congestive) and diastolic (congestive) heart failure Status: Acute Assessment and Plan: Patient with chronic bilateral effusions that appear to be stable. Only trace edema on exam. BNP is markedly elevated when compared to March. Lasix IV x1 given and lizzie has been resumed on her home lasix dose. Will monitor for now. (6) Hypertension: Qualifiers: Hypertension type: unspecified Qualified Code(s): I10 - Essential (primary) hypertension Code(s): I10 - Essential (primary) hypertension Status: Chronic Assessment and Plan: Blood pressure monitored. Blood pressure elevated at times. Lisinopril and Coreg have been resumed. BP does drop down to normal at times so will defer to PCP at this time. Have family check BP at home to se if she has white coat syndrome given her anxiety. (7) Abdominal discomfort: Code(s): R10.9 - Unspecified abdominal pain Status: Acute Assessment and Plan: This is been an ongoing problem for the patient. She had a CT A/P in March showing gallstones but otherwise no acute findings. She has been started on Protonix and Carafate without much benefit. She has also been on p.o. vancomycin for about a month despite not having diarrhea. Consider gastroparesis. Consider functional due to anxiety. Given her weight loss and early satiety, she may benefit from consultation with a traffic control supervisor on an outpatient basis. (8) Depression with anxiety: Code(s): F41.8 - Other specified anxiety disorders Status: Acute Assessment and Plan: Anxious at times but mood stable today. Continue sertraline and Ativan at bedtime. (9) Anemia: Code(s): D64.9 - Anemia, unspecified Status: Acute Assessment and Plan: Hgb 9.9 on admission. Mostly in the 10-11 range. Stool guaiac positive in March and again here now. Iron studies in Mar more consist
--- NOTE | 2019-09-02 15:50 | PC.NURSE ---
Blood cx are negative.
== END 2019-08-24 17:38 | disposition home health service (06) | DRG 204 ==
LOC: ANHED 13:01 → ANHICU 13:22 → ANHIMU 08-23 06:24
PROVIDERS: Physician Assistant; Admitting Provider Family Medicine; Emergency Provider Emergency Medicine; PCP Family Medicine; Visit Provider Internal Medicine
DX: R06.02 Shortness of breath (principal); I50.42 Chronic combined systolic (congestive) and diastolic (congestive) heart failure; J90 Pleural effusion, not elsewhere classified; I11.0 Hypertensive heart disease with heart failure; F41.8 Other specified anxiety disorders; Z20.828 Contact with and (suspected) exposure to other viral communicable diseases; I48.0 Paroxysmal atrial fibrillation; G62.9 Polyneuropathy, unspecified; G47.33 Obstructive sleep apnea (adult) (pediatric); M81.0 Age-related osteoporosis without current pathological fracture; D63.8 Anemia in other chronic diseases classified elsewhere; R79.89 Other specified abnormal findings of blood chemistry; E03.9 Hypothyroidism, unspecified; R10.9 Unspecified abdominal pain; E87.6 Hypokalemia; Z86.711 Personal history of pulmonary embolism; Z86.73 Personal history of transient ischemic attack (TIA), and cerebral infarction without residual deficits; Z85.43 Personal history of malignant neoplasm of ovary; Z87.891 Personal history of nicotine dependence; Z79.01 Long term (current) use of anticoagulants
CPT/HCPCS: 36415; 36600; 71046; 80048; 80053; 82274; 82805; 83735; 83880; 84132; 84439; 84443; 84480; 84484; 85025; 85027; 85610; 85730; 87040; 87635; 93005; 96365; 96366; 96368; 99285; A9270; C9803; J0456; J0696; J1940; U0003

== ENCOUNTER 2019-09-03 13:08 | Inpatient (IN) | payer MEDICARE, SELFPAY ==
[2019-09-03] VITALS (18 sets, daily range): BP systolic 99–134; BP diastolic 53–97; PULSE 48–65; RESP 14–24; TEMP 35.8–36.7; O2SAT 79–100; BMI 21.6
--- NOTE | ~2019-09-03 | XR_ITS ---
EXAMINATION: XR chest 1V portable DATE: 09/03/2019 14:02 INDICATION: Shortness of breath. TECHNIQUE: A single frontal view of the chest was obtained. COMPARISON: Chest 2 views 08/22/2019, chest CT 08/07/2019 FINDINGS: There are small right and moderate-sized left pleural effusions. There are airspace opaciti es in the perihilar regions and at the lung bases. There is mild scarring at the lung apices. No pneu mothorax. Cardiomegaly is noted. There are old healed bilateral rib fractures. IMPRESSION: 1. Small right and moderate-sized left pleural effusions with interval worsening on the left. 2. Airspace opacities in the perihilar regions and at the lung bases with improvement on the right an d worse on the left, consistent with atelectasis versus pneumonia. 3. Cardiomegaly. Reviewed, dictated and finalized at location A. IMPRESSION: 1. Small right and moderate-sized left pleural effusions with interval worsenin g on the left. 2. Airspace opacities in the perihilar regions and at the lung bases with impro vement on the right and worse on the left, consistent with atelectasis versus p neumonia. 3. Cardiomegaly.
--- NOTE | 2019-09-03 13:13 | ECG_ITS ---
Measurements Intervals [place] Rate: 58 P: 86 [place]: 151 QRS: -11 QRSD: 98 T: 60 QT: 435 QTc: 430 Interpretive Statements SINUS BRADYCARDIA NONSPECIFIC ST & T-WAVE ABNORMALITY- DIFFUSE LEADS BASELINE WANDER- V6 BORDERLINE ECG Electronically Signed On 09-03-2019 14:20:57 CDT by Ricardo Childers D.O.
--- NOTE | 2019-09-03 13:19 | PC.NURSE ---
Pt has NS infusing at KVO initiated in route per EMS.
--- NOTE | 2019-09-03 13:20 | PC.NURSE ---
Pt placed on 3 L NC O2 due to sat of 79% on room air.
[2019-09-03] MEDS: IPRATROPIUM BR 0.02% INH SOLN 0.5 MG/2.5 ML VIAL INHALATION ×2 (13:29→20:42)
[2019-09-03] MEDS: ALBUTEROL SULFATE NEB 2.5 MG/0.5 ML INH 5 MG INHALATION ×2 (13:29→20:41)
--- NOTE | 2019-09-03 13:35 | PC.NURSE ---
Pt placed on NRB.
--- NOTE | 2019-09-03 13:35 | PC.NURSE ---
RESP at bedside for breathing tx.
--- NOTE | 2019-09-03 13:56 | PC.NURSE ---
Per daughter at bedside, pt normally wears 1 L NC home O2. Pt currently 100% on 2 L.
[2019-09-03 14:08] LABS: Eosinophils Absolute Auto 0.1 K/mm3 (0-0.3); Eosinophils Percent Auto 1.3 % (0-4.4); Immature Granulocyte Absolute 0.02 K/mm3 (0.00-0.031); Immature Granulocyte Percent A 0.4 % (0-0.5); Lymphocytes Absolute Auto 0.64 K/mm3 (0.9-3.2); Lymphocytes Percent Auto 14.3 % (18.3-44.2); Mean Corpuscular HGB Conc 31.9 g/dl (32-36); Mean Corpuscular Hemoglobin 29.3 pg (26-34); Mean Corpuscular Volume 91.7 fl (80-100); Mean Platelet Volume 11.6 fl (7.4-10.4); Monocytes Absolute Auto 0.2 K/mm3 (0.1-0.6); Monocytes Percent Auto 4.7 % (2.6-8.5); Neutrophils Absolute Auto 3.5 K/mm3 (1.3-6.7); Neutrophils Percent Auto 79.3 % (45.5-73.1); Platelet Count Result 115 k/mm3 (150-375); Red Blood Count 2.29 M/mm3 (4.2-5.4); Red Cell Distribution Width 17.1 % (11.5-14.5); White Blood Count 4.5 K/mm3 (4.5-10.0)
[2019-09-03 14:14] LABS: Hemoglobin 6.7 g/dL (12.0-15.0)
[2019-09-03 14:19] LABS: INR 1.3; Prothrombin Time 15.8 Seconds (11.1-14.7)
[2019-09-03 14:36] LABS: Alanine Aminotransferase 15 U/L (4-35); Alkaline Phosphatase 54 U/L (38-126); Aspartate Amino Transferase 26 U/L (14-36); Bilirubin,Total 0.2 mg/dL (0.2-1.3); Blood Urea Nitrogen 29 mg/dL (7-17); Calcium 8.9 mg/dL (8.4-10.2); Carbon Dioxide 28 mmol/L (22-30); Chloride 106 mmol/L (98-107); Estimated CRCL calculation 28 ml/min; Estimated Glomerular Filt Rate 47; Glucose 106 mg/dL (65-105); Potassium 3.6 mmol/L (3.4-5.0); Sodium 139 mmol/L (137-145)
--- NOTE | 2019-09-03 14:40 | ED.GENADULT ---
HPI - General Adult General Chief complaint: Shortness of Breath/Dyspnea Stated complaint: SOB/LETHARGY Time Seen by Provider: 09/03/19 13:12 Source: family and EMS Mode of arrival: EMS Limitations: altered mental status and dementia History of Present Illness HPI narrative: 84-year-old with a history of dementia, hypertension, recent history of PE on Eliquis, CHF was brought in from home with a complaint of altered mental status and shortness of breath. As per the EMS patient was very slow to respond this morning and was also having some difficulty in breathing. There was no history of fever or chills reported no history of nausea or vomiting or abdominal pain however the daughter reports that she has been having dark black-colored stools for the last couple days. Severity: moderate Associated symptoms: shortness of breath Related Data Home Medications Medication Instructions Recorded Confirmed One-A-Day Womens Formula 1 tablet PO DAILY 04/13/19 08/22/19 calcium polycarbophil [FiberCon] 625 mg PO BID 04/13/19 08/22/19 cyanocobalamin (vitamin B-12) 1,000 mcg PO DAILY 04/13/19 08/22/19 [Vitamin B-12] sertraline 100 mg PO Q12H 08/07/19 08/22/19 Allergies Allergy/AdvReac Type Severity Reaction Status Date / Time Penicillins Allergy Unknown Unknown Verified 09/03/19 13:30 Review of Systems Review of Systems: ROS unobtainable: Yes unobtainable due to mental status PMFSH Past Medical History Medical History Anemia Arthritis Ascending aortic aneurysm Measuring 4.[address] in July 2019. Bakers cyst Chronic respiratory failure with hypoxia Oxygen p.r.n. at home. Colon polyps Combined systolic and diastolic congestive heart failure Echocardiogram in July 2019 showed some mildly enlarged LV chamber, mild reduction in LV systolic function with EF estimated at 40 to 45%, grade 1 diastolic dysfunction, akinetic basal inferior, hypokinetic inferior lateral, mid inferior wall, basal inferoseptal, and mid anterior lateral, severe left atrial enlargement, moderate to severe aortic valve regurgitation, moderate mitral valve regurgitation, moderate pulmonic regurgitation, and mild pulmonary hypertension with an estimated peak RVSP of 43 mmHg. Depression with anxiety Fractures Including ribs, ankle, foot, and femur (non operative). History of Clostridioides difficile colitis (~03/2019) Hypertension Hypothyroidism Internal hemorrhoids Obstructive sleep apnea Intolerant to CPAP. Osteoporosis Paroxysmal atrial fibrillation Peripheral neuropathy Peripheral neuropathy Pleural effusion Hemothorax drained in March 2019. Persistent bilateral effusions since that time. Renal cell carcinoma (~08/2008) Status post laparoscopic cryoablation. Histology showed renal cell carcinoma, favor papillary type. TIA (transient ischemic attack) Valvular heart disease Echocardiogram in July 2019 showed moderate to severe aortic insufficiency, moderate pulmonic regurgitation, moderate mitral valve regurgitation, and mild tricuspid valve regurgitation. Surgical History Surgical History H/O excision of ganglion cyst (~07/2006) Dorsum of the left hand. History of arthroscopy of left knee Left knee: April 2008. Right knee: November 2008. History of basal cell carcinoma excision History of bilateral knee arthroplasty History of left salpingo-oophorectomy (~08/2008) History of nephrectomy rt partial Hx of colonoscopy Parathyroid adenoma (~12/2013) Excision parathyroid adenoma. Status post cryoablation (~08/2008) Of right renal mass. Family History Family History Mother Hypertension Cerebrovascular accident Father Malignant neoplasm of prostate Family history of coronary artery disease Family history of congestive heart failure Grandparent Diabetes mellitus Other
[2019-09-03] MEDS: FUROSEMIDE INJ 40 MG/4 ML VIAL 20 MG IV PUSH ×2 (14:43→21:57)
[2019-09-03] MEDS: PANTOPRAZOLE SODIUM IV 40 MG VIAL IV PUSH (14:43)
[2019-09-03 14:49] LABS: NT Pro B Type Natriuretic Pept 6010 PG/ML (5-100); Troponin I 0.016 ng/mL (0.000-0.034)
[2019-09-03] MEDS: SODIUM CHLORIDE 0.9% IV 250 ML 30 ML IV CONT (17:36)
[2019-09-03] MEDS: TUBING, BLOOD PLUM PUMP TUBING 1 EACH XX (17:36)
--- NOTE | 2019-09-03 18:24 | ADMGEN ---
This patient, Shonda Wiggins, was admitted to IMU Room 232-01 at 1605 on 09/03/2019. Patient/family oriented to hospital policies and general routines including ID bracelet, bed and alarms, visiting hours, pain management, procedures, bathroom and other care routines, personal items, smoking policy, room service/diet, and visiting hours. Valuables list has been completed. Information on how to activate the Rapid Response Team has been discussed. Patient/Family are encouraged to report perceived risks to care and to ask questions if they do not understand what they are told or what they should do.
--- NOTE | 2019-09-03 19:21 | PM.IMHP ---
H&P: HPI History of Present Illness Chief complaint: anemia/gi bleed/ chf Narrative: Shonda Wiggins is a 84 year old female who has been here multiple times. Discharged from here on 08/24/2019 patient is currently being treated on Eliquis for PE she had an elevated troponin at that time. She had no complaints of chest pain at that time. The patient had an echo that shows EF of 40-45% grade 1 diastolic moderate to severe AR and moderate MR. The patient had a hemoglobin of 9 9 during that admission and is typically around 10-11 her stool guaiac was positive in March and again last month in July when she was here her iron studies back in March were consistent with anemia of chronic disease. She was to follow GI as outpatient. However the patient came into the ER today from home with complaint altered mental status changes and shortness of breath. The patient was slow to respond this morning was having some difficulty breathing she wears oxygen at home. No fever chills no nausea vomiting or diarrhea. The daughter reported that she had dark colored stools today and for the last couple days. Patient was found to be guaiac-positive here. Chest x-ray was read as small right and moderate size left pleural effusions with interval change on the left airspace opacities in the perihilar regions and at the lung bases with improvement on the right and worse on the left consistent with atelectasis versus pneumonia. Cardiomegaly. H&H is 6.7 and 21.0 GI has been consulted and patient is getting 1 unit of packed red blood cells. Date of service 09/03/2019 BNP is noted to be 6010 Review of Systems Review of Systems: All systems reviewed & are unremarkable except as noted in HPI and below ROS unobtainable: Yes unobtainable due to mental status Constitutional: Constitutional: Reports as per HPI and Reports no additional constitutional complaints Eyes: Eyes: Reports as per HPI and Reports no additional eye complaints ENT: Reports system reviewed and no additional complaints, except as documented and Reports Normal hearing present Cardiovascular: Cardiovascular: Reports no additional cardiovascular complaints Respiratory: Respiratory: Reports no additional respiratory complaints and Reports no additional respiratory complaints Gastrointestinal: Gastrointestinal: Reports as per HPI and Reports no additional gastrointestinal complaints Musculoskeletal: Musculoskeletal: Reports no additional musculoskeletal complaints Integumentary/Breasts: Skin/Breast: Reports system reviewed and no additional complaints, except as docu and Reports as per HPI Neurologic: Reports system reviewed and no additional complaints, except as documented, Reports as per HPI and Reports Normal hearing present Psychiatric: Psychiatric: Reports no additional psychiatric complaints and Reports as per HPI Endocrine: Endocrine: Reports no additional endocrine complaints Hematologic/Lymphatic: Hematologic/Lymphatic: Reports no additional hematologic/lymphatic complaints Allergic/Immunologic: Allergic/Immunologic: Reports no additional allergic/immunologic complaints [facility] Past Medical History Medical History Anemia Arthritis Ascending aortic aneurysm Measuring 4.[address] in July 2019. Bakers cyst Chronic respiratory failure with hypoxia Oxygen p.r.n. at home. Colon polyps Combined systolic and diastolic congestive heart failure Echocardiogram in July 2019 showed some mildly enlarged LV chamber, mild reduction in LV systolic function with EF estimated at 40 to 45%, grade 1 diastolic dysfunction, akinetic basal inferior, hypokinetic inferior lateral, mid inferior wall, basal inferoseptal, and mid anterior lateral, severe left atrial enlargement, moderate to severe aortic valve regurgitation, moderate mitral valve regurgitation, moderate pulmonic regurgitation, and mild pulmonary hypertension with an estimated peak
[2019-09-03 21:36] LABS: Hematocrit 26.1 % (37.0-47.0); Hemoglobin 8.4 g/dL (12.0-15.0)
[2019-09-03] MEDS: carvediloL 25 MG TABLET PO (21:57)
[2019-09-03] MEDS: calcium polycarbophiL 625 MG TABLET PO (21:57)
[2019-09-03] MEDS: LORazepam 0.5 MG TABLET PO (21:58)
[2019-09-03] MEDS: rOPINIRole HCL 1 MG TABLET PO (21:58)
[2019-09-03] MEDS: SERTRALINE HCL 50 MG TABLET 100 MG PO (21:58)
[2019-09-03] MEDS: traMADol HCL 50 MG TABLET PO (21:59)
[2019-09-04] VITALS (24 sets, daily range): BP systolic 121–149; BP diastolic 65–92; PULSE 51–99; RESP 16–24; TEMP 35.5–36.9; O2SAT 93–100
[2019-09-04] MEDS: ALBUTEROL SULFATE NEB 2.5 MG/0.5 ML INH 5 MG INHALATION ×4 (01:53→19:03)
[2019-09-04] MEDS: IPRATROPIUM BR 0.02% INH SOLN 0.5 MG/2.5 ML VIAL INHALATION ×4 (01:53→19:03)
[2019-09-04 02:09] LABS: Hematocrit 23.9 % (37.0-47.0); Hemoglobin 7.7 g/dL (12.0-15.0)
[2019-09-04 06:10] LABS: Eosinophils Absolute Auto 0.2 K/mm3 (0-0.3); Eosinophils Percent Auto 4.8 % (0-4.4); Hematocrit 24.2 % (37.0-47.0); Hemoglobin 7.9 g/dL (12.0-15.0); Immature Granulocyte Absolute 0.02 K/mm3 (0.00-0.031); Immature Granulocyte Percent A 0.5 % (0-0.5); Lymphocytes Absolute Auto 0.73 K/mm3 (0.9-3.2); Lymphocytes Percent Auto 17.4 % (18.3-44.2); Mean Corpuscular HGB Conc 32.6 g/dl (32-36); Mean Corpuscular Hemoglobin 28.8 pg (26-34); Mean Corpuscular Volume 88.3 fl (80-100); Monocytes Absolute Auto 0.2 K/mm3 (0.1-0.6); Monocytes Percent Auto 5.5 % (2.6-8.5); Neutrophils Percent Auto 71.8 % (45.5-73.1); Platelet Count Result 121 k/mm3 (150-375); Red Blood Count 2.74 M/mm3 (4.2-5.4); Red Cell Distribution Width 17.4 % (11.5-14.5); White Blood Count 4.2 K/mm3 (4.5-10.0)
[2019-09-04] MEDS: SUCRALFATE 1 GM TABLET PO ×2 (06:34→17:37)
[2019-09-04] MEDS: LEVOTHYROXINE SODIUM 50 MCG TABLET PO (06:34)
[2019-09-04 06:35] LABS: Blood Urea Nitrogen 30 mg/dL (7-17); Calcium 8.9 mg/dL (8.4-10.2); Carbon Dioxide 27 mmol/L (22-30); Chloride 105 mmol/L (98-107); Estimated CRCL calculation 32 ml/min; Estimated Glomerular Filt Rate 53; Glucose 91 mg/dL (65-105); Potassium 3.1 mmol/L (3.4-5.0); Sodium 137 mmol/L (137-145)
[2019-09-04 10:37] LABS: Glucose Point of Care 114 (65-105)
[2019-09-04] MEDS: carvediloL 25 MG TABLET PO ×2 (10:42→20:16)
[2019-09-04] MEDS: traMADol HCL 50 MG TABLET PO ×2 (10:42→20:17)
[2019-09-04] MEDS: calcium polycarbophiL 625 MG TABLET PO ×2 (10:42→17:37)
[2019-09-04] MEDS: SERTRALINE HCL 50 MG TABLET 100 MG PO ×2 (10:42→20:17)
[2019-09-04] MEDS: lisinopriL 20 MG TABLET 40 MG PO (10:42)
[2019-09-04] MEDS: SPIRONOLACTONE 25 MG TABLET PO (10:43)
[2019-09-04] MEDS: THERAPEUTIC MULTIVITAMINS/MINERALS TAB (*BKC) 1 TABLET PO (10:43)
[2019-09-04] MEDS: PANTOPRAZOLE SOD SESQUIHYDRATE 20 MG TAB PO (10:43)
[2019-09-04] MEDS: FUROSEMIDE INJ 40 MG/4 ML VIAL 20 MG IV PUSH ×2 (10:43→20:16)
[2019-09-04] MEDS: rOPINIRole HCL 1 MG TABLET PO ×2 (10:43→20:17)
[2019-09-04 13:13] LABS: Hematocrit 23.9 % (37.0-47.0); Hemoglobin 7.7 g/dL (12.0-15.0)
--- NOTE | 2019-09-04 15:11 | WPDGICN ---
Assessment and Plan Assessment and plan (1) GI (gastrointestinal bleed): Qualifiers: GI bleed type/associated pathology: unspecified gastrointestinal hemorrhage type Qualified Code(s): K92.2 - Gastrointestinal hemorrhage, unspecified Code(s): K92.2 - Gastrointestinal hemorrhage, unspecified Status: Acute Assessment and Plan: in setting of blood thinners we will proceed with egd tomorrow, she had a colonoscopy apparently 2 years ago continue with protonix iv and monitor hb (2) CHF exacerbation: Qualifiers: Heart failure type: systolic Qualified Code(s): I50.23 - Acute on chronic systolic (congestive) heart failure Code(s): I50.9 - Heart failure, unspecified Status: Acute Assessment and Plan: by medical team (3) Acute on chronic blood loss anemia: Code(s): D62 - Acute posthemorrhagic anemia Status: Acute Assessment and Plan: transfused and check h/h, keep hb>7 (4) Combined systolic and diastolic congestive heart failure: Code(s): I50.40 - Unspecified combined systolic (congestive) and diastolic (congestive) heart failure Status: Acute (5) Bilateral pleural effusion: Code(s): J90 - Pleural effusion, not elsewhere classified Status: Acute (6) Pulmonary embolism: Qualifiers: Acute cor pulmonale presence: unspecified Chronicity: acute Pulmonary embolism type: unspecified Qualified Code(s): I26.99 - Other pulmonary embolism without acute cor pulmonale Code(s): I26.99 - Other pulmonary embolism without acute cor pulmonale Status: Acute Assessment and Plan: she was on blood thinner GI Consult Note Consult date/time: 09/04/19 15:11 Reason for consult: symptomatic anemia HPI: Shonda Wiggins is a 84 year old female with multiple medical problems including PE ~ 3 weeks ago using now eliquis, chronic anemia with hb ~ 9-10, CHF with moderate to severe AR and moderate MR, pleural effusions, MER[facility] and most recent colonoscopy about 2 years ago (based on POA), readmitted again 08/20 with more SOB. She was brought to ER again with altered mental status changes and shortness of breath, she is slow to respond. History also obtained from records and daughter by phone. There is report of dark colored stools. ER found guaiac-positive stool and hb 6.7, she received one unit of prbc and started on ppi. Never had EGD, CXR showed small right and moderate size left pleural effusions with atelectasis and cardiomegaly, she is using oxygen. Review of Systems Constitutional: Constitutional: Reports fatigue, Denies headache(s) and Reports lethargy Eyes: Eyes: Denies blurry vision ENT: Denies headache(s), Denies epistaxis and Denies neck pain Cardiovascular: Cardiovascular: Reports dyspnea Respiratory: Respiratory: Reports dyspnea Gastrointestinal: Gastrointestinal: Reports no additional gastrointestinal complaints Genitourinary: Genitourinary: Denies dysuria Musculoskeletal: Musculoskeletal: Denies neck pain Integumentary/Breasts: Skin/Breast: Denies dry skin Neurologic: Reports Normal hearing present, Reports confusion and Denies weakness Psychiatric: Psychiatric: Reports anxiety Endocrine: Endocrine: Denies change in body appearance Hematologic/Lymphatic: Hematologic/Lymphatic: Denies easy bleeding Allergic/Immunologic: Allergic/Immunologic: Denies urticaria PMFSH Past Medical History Medical History Anemia Arthritis Ascending aortic aneurysm Measuring 4.[address] in July 2019. Bakers cyst Chronic respiratory failure with hypoxia Oxygen p.r.n. at home. Colon polyps Combined systolic and diastolic congestive heart failure Echocardiogram in July 2019 showed some mildly enlarged LV chamber, mild reduction in LV systolic function with EF estimated at 40 to 45%, grade 1 diastolic dysfunction, akinetic basal inferior, hypokineti
--- NOTE | 2019-09-04 16:17 | PM.IMPN ---
Progress Note: A&P Assessment and Plan (1) Anemia: Qualifiers: Anemia type: unspecified type Qualified Code(s): D64.9 - Anemia, unspecified Code(s): D64.9 - Anemia, unspecified Status: Acute Assessment and Plan: Hgb 9-10 range last admission a few weeks ago. Hgb 6.7 on admission here. Plt count also low which is not been noted before. Patient received one unit of PRBC on 09/03/19. Hgb 7-8 range since. GI has been consulted. Hold her Eliquis. Check stool for occult blood. She does have underlying chronic anemia. Continue HH serially. (2) CHF exacerbation: Qualifiers: Heart failure type: systolic Qualified Code(s): I50.23 - Acute on chronic systolic (congestive) heart failure Code(s): I50.9 - Heart failure, unspecified Status: Acute Assessment and Plan: CXR on admission showing small right and moderate-sized left pleural effusions with interval worsening on the left. BNP 6000 but half of what the level was in July. IV Lasix started. Continue spironolactone, lisinopril, and Coreg. Daily weights. Monitor UOP. (3) GI (gastrointestinal bleed): Qualifiers: GI bleed type/associated pathology: unspecified gastrointestinal hemorrhage type Qualified Code(s): K92.2 - Gastrointestinal hemorrhage, unspecified Code(s): K92.2 - Gastrointestinal hemorrhage, unspecified Status: Acute Assessment and Plan: Patient currently being treated for PE with Eliquis. Dtr states patient has been having dark stools for the past few days as ell as SOB and slow to respond. In the ER, rectal exam shownig no stool in vault. GI consulted with plans for EGD in the morning. Continue to monitor HH. Hold Eliquis. (4) Hypothyroidism: Code(s): E03.9 - Hypothyroidism, unspecified Status: Acute Assessment and Plan: TSH 27 in July. Levothyroxine was advanced at that time. Repeat TSH in 4-6 weeks. (5) Depression with anxiety: Code(s): F41.8 - Other specified anxiety disorders Status: Acute Assessment and Plan: Mood stable. Patient awake and alert. Continue with Zoloft (6) Pleural effusion: Code(s): J90 - Pleural effusion, not elsewhere classified Status: Acute Assessment and Plan: CXR from 08/22/2019 showing persistent moderate right, small left pleural effusions with adjacent atelectasis. CXR on admission showing small right and moderate-sized left pleural effusions with interval worsening on the left. Suspect chronic and related to her CHF. Treat with IV Lasix. Hold on thoracentesis for now. Subjective Date/time seen: 09/04/19 16:17 Interval history: 84yo female with dementia, recent PE and CHF here for SOB and found to have anemia and complaints of dark stool. Date of service 09/04/2019: Patient states she is feeling well. She denies any chest pain or shortness of breath. She denies any abdominal pain. No bowel movements since admission. No nausea or vomiting. She normally wears oxygen 1-2 L at night. Exam Narrative: Exam Narrative: AF 121/83 59 24 100% 3L Gen - NARD lying semi recumbent bed Chest -decreased breath sounds bibasilar. Normal respiratory rate. Conversational dyspnea. CV - RRR S1/S2. Telemetry showing mild bradycardia and PVCs Abd -soft. Nontender. Nondistended. Positive bowel sounds. Ext -trace pedal edema Psych -alert and appropriate. Subdued mood. Follows commands. Skin - Warm and dry Objective Data Vital Signs Vital Signs: Vital Signs - 24 hr 09/03/19 17:16 09/03/19 17:33 09/03/19 18:00 Temperature 96.8 F L 96.5 F L Pulse Rate 52 L 53 L 57 L Respiratory Rate 18 18 Blood Pressure 134/93 H 105/79 Pulse Oximetry 100 97 09/03/19 18:33 09/03/19 19:33 09/03/19 20:00 Temperature 97.1 F L 97 F L 97.3 F L Pulse Rate 53 L 53 L 55 L Respiratory Rate 18 14 20 Blood Pressure 107/54 L 133/77 125/97 H Pulse Oximetry 100 100 9
[2019-09-04] MEDS: POTASSIUM CHLORIDE 20 MEQ TABLET PO (17:37)
[2019-09-04 20:16] LABS: Hematocrit 26.6 % (37.0-47.0); Hemoglobin 8.6 g/dL (12.0-15.0)
[2019-09-04] MEDS: LORazepam 0.5 MG TABLET PO (20:17)
[2019-09-05] VITALS: BP 106/65; PULSE 52; PULSE 56; RESP 16; RESP 20; TEMP 36.4; O2SAT 100
[2019-09-05] MEDS: ALBUTEROL SULFATE NEB 2.5 MG/0.5 ML INH 5 MG INHALATION (01:06)
[2019-09-05] MEDS: IPRATROPIUM BR 0.02% INH SOLN 0.5 MG/2.5 ML VIAL INHALATION (01:06)
[2019-09-05 01:08] VITALS: PULSE 51; RESP 22
[2019-09-05 01:14] VITALS: PULSE 54; RESP 22
[2019-09-05 02:00] VITALS: PULSE 48
--- NOTE | 2019-09-23 15:10 | PM.DDS ---
Discharge Sum: Prov Provider Primary care physician: Sammy Silva MD Admitting provider: Osvaldo Friedman MD Consults: 09/04/19 Consult to Physician Routine Comment: Consulting Provider: Julius Spear physically impaired teacher/MD group to consult: Reason for consultation: Gi issues Has provider been notified: No Discharge Sum: Diag Contributing Factors (1) Anemia: (2) CHF exacerbation: (3) GI (gastrointestinal bleed): (4) Hypothyroidism: (5) Depression with anxiety: (6) Pleural effusion: Discharge Sum: Summary Date and Time Date of admission: 09/03/19 14:52 Summary Details: 84yo female with dementia, recent PE and CHF here for SOB and found to have anemia and complaints of dark stool. She was admitted and seen by GI. Patient on the rn clinical review hours of 09/04 became bradycardic and passed. Etiology unclear. She was DNR so no intervention performed. 10 minutes spent on tis discharge Additional Data Attending physician: Osvaldo Friedman MD
== END 2019-09-05 06:00 | disposition expired | DRG 377 ==
LOC: ANHED 14:57 → ANHIMU 15:23
PROVIDERS: Nurse Practitioner; Admitting Provider Internal Medicine; Emergency Provider Family Medicine; PCP Family Medicine; Visit Provider Internal Medicine
DX: K92.2 Gastrointestinal hemorrhage, unspecified (principal); I26.99 Other pulmonary embolism without acute cor pulmonale; I50.43 Acute on chronic combined systolic (congestive) and diastolic (congestive) heart failure; J96.11 Chronic respiratory failure with hypoxia; D62 Acute posthemorrhagic anemia; I11.0 Hypertensive heart disease with heart failure; F41.8 Other specified anxiety disorders; E03.9 Hypothyroidism, unspecified; G47.33 Obstructive sleep apnea (adult) (pediatric); M81.0 Age-related osteoporosis without current pathological fracture; I48.0 Paroxysmal atrial fibrillation; M19.90 Unspecified osteoarthritis, unspecified site; R00.1 Bradycardia, unspecified; D63.8 Anemia in other chronic diseases classified elsewhere; I71.2 Thoracic aortic aneurysm, without rupture; Z66 Do not resuscitate; Z85.53 Personal history of malignant neoplasm of renal pelvis; Z86.73 Personal history of transient ischemic attack (TIA), and cerebral infarction without residual deficits; Z99.81 Dependence on supplemental oxygen; Z85.828 Personal history of other malignant neoplasm of skin; Z87.891 Personal history of nicotine dependence; F03.90 Unspecified dementia, unspecified severity, without behavioral disturbance, psychotic disturbance, mood disturbance, and anxiety
CPT/HCPCS: 36415; 36430; 71045; 80048; 80053; 83880; 84484; 85014; 85018; 85025; 85610; 86850; 86900; 86901; 86923; 93005; 94640; 96374; 96375; 99285; A9270; C9113; J1940; J7050; P9016